=== PATIENT | female | born 1950 | race Caucasian/White ===

== ENCOUNTER 2020-02-23 11:09 | Outpatient (CLI) | payer MEDICARE, OTHER, SELFPAY ==
--- NOTE | 2020-02-23 11:15 | MM_ITS ---
WS: [id number] BILATERAL DIGITAL SCREENING MAMMOGRAPHY WITH CAD CLINICAL INFORMATION: SCREENING HISTORY: Screening mammogram. No current complaints. COMPARISON: TECHNIQUE: Bilateral CC and MLO views. FINDINGS: Scattered fibroglandular densities bilaterally. No suspicious focal mass, asymmetry, calcifications, or architectural distortion. No evidence of malignancy. A few stable clustered calcifications. MM/[place] [id number] IMPRESSION: BI-RADS: 2-Benign FOLLOW UP: 1 Year Follow-up Recommend return to annual screening mammography.
== END 2020-02-23 11:10 | disposition home or self-care (01) ==
PROVIDERS: PCP Nurse Practitioner Family; Visit Provider Nurse Practitioner Family
DX: Z12.31 Encounter for screening mammogram for malignant neoplasm of breast (principal)
CPT/HCPCS: 77067

== ENCOUNTER → 2021-07-31 14:51 | Outpatient (BNVA) | payer MEDICARE, OTHER, SELFPAY | PROVIDERS: PCP Nurse Practitioner Family; Visit Provider Internal Medicine Cardiovascular Disease | DX: I71.2 Thoracic aortic aneurysm, without rupture (principal); R07.2 Precordial pain; I10 Essential (primary) hypertension; K21.9 Gastro-esophageal reflux disease without esophagitis; G47.33 Obstructive sleep apnea (adult) (pediatric); Z87.891 Personal history of nicotine dependence | CPT/HCPCS: 99214 ==

== ENCOUNTER 2021-08-14 10:04 | Outpatient (CLI) | payer MEDICARE, OTHER, SELFPAY ==
--- NOTE | 2021-08-14 10:30 | CT_ITS ---
WS: [id number] CTA THORACIC TECHNIQUE: Contrast enhanced CTA of the thoracic aorta with coronal and sagittal reformatted images a nd maximum intensity projection (MIP) images. CLINICAL INFORMATION: Thoracic Aortic Aneurysm COMPARISON: 2017 DLP: 1088.[address] scans at [facility] use at least one of these dose optimization techniques: automated e xposure control; mA and/or kV adjustment per patient size (includes targeted exams where dose is matc hed to clinical indication); or iterative reconstruction. FINDINGS: Stable ascending thoracic aortic aneurysm measuring 4.1 cm is unchanged. Mild aortic calcification. P roximal main pulmonary arteries are normal. No mediastinal or hilar lymphadenopathy. No axillary lymp hadenopathy. Spiculated RIGHT upper lobe mass at the level of the RIGHT hilum new compared to prior e xamination. This measures approximately 1.5 x 1.1 cm suspicious for neoplasm. Recommend further evalu ation with PET/CT and/or bronchoscopy. Stable volume loss RIGHT lower lobe with elevation hemidiaphragm. Subsegmental atelectasis in the wero g bases. 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 No mediastin al or hilar lymphadenopathy. Moderate chronic centrilobular emphysematous changes. Diffuse fatty liver infiltration of the liver. Partially visualized LEFT renal cyst. Measuring 4.1 CM . Normal caliber upper abdominal aorta. Celiac is patent. Adrenal glands are normal. Gallbladder is p artially visualized. Normal portal vein and splenic vein. Small esophageal hiatal hernia. CT/CT angio chest [id number] IMPRESSION: 1. Stable ascending thoracic aortic aneurysm measuring 4.1 cm unchanged from p revious. 2. Spiculated mass in the RIGHT upper lobe posteriorly new from the prior exam inations highly suspicious for neoplasm measuring 1.2 x 1.5 CCM. Recommend furt her evaluation with PET/CT and/or bronchoscopy. 3. No mediastinal or hilar lymphadenopathy. 4. 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 5. Chronic elevation hemidiaphragm is unchanged with bibasilar subsegmental at electasis and fibrosis.
[2021-08-14 12:31] LABS: Blood Urea Nitrogen 15 mg/dL (8-23); Glomerular Filtration Rate 62.1 mL/min (90-130)
== END 2021-08-14 10:05 | disposition home or self-care (01) ==
LOC: RAD 10:05
PROVIDERS: PCP Nurse Practitioner Family; Visit Provider Internal Medicine Cardiovascular Disease
DX: I71.2 Thoracic aortic aneurysm, without rupture (principal)
CPT/HCPCS: 71275; 82565; 84520; Q9967

== ENCOUNTER → 2021-08-27 14:39 | Outpatient (BNVA) | payer MEDICARE, OTHER, SELFPAY | PROVIDERS: PCP Nurse Practitioner Family; Visit Provider Internal Medicine Critical Care Medicine | DX: R91.1 Solitary pulmonary nodule (principal); J44.9 Chronic obstructive pulmonary disease, unspecified; G47.33 Obstructive sleep apnea (adult) (pediatric); Z87.891 Personal history of nicotine dependence; K21.9 Gastro-esophageal reflux disease without esophagitis; I10 Essential (primary) hypertension | CPT/HCPCS: 99204 ==

== ENCOUNTER 2021-09-11 06:55 | Day surgery (SDC) | payer MEDICARE, OTHER, SELFPAY ==
[2021-08-31 12:18] VITALS: BMI 29.0
[2021-09-11] VITALS (8 sets, daily range): BP systolic 107–146; BP diastolic 71–83; PULSE 67–83; RESP 16–20; TEMP 36.5–36.6; O2SAT 96–100
--- NOTE | 2021-09-11 | CT_ITS ---
Guided Bronchoscopy Planning CT images; total exam DLP: 520.10 mGy-cm MTDD
[2021-09-11] MEDS: sodium chloride 0.9% 1,000 ML 30 ML IV (07:28)
--- NOTE | 2021-09-11 07:59 | W.PM.OPSUD ---
Surgery/Procedure H&P Update DATE OF PROCEDURE: September 11, 2021 DATE H&P PERFORMED: 08/27/21 CHANGES TO PREVIOUS DOCUMENTATION: None PREOP DIAGNOSIS: Lung nodule PRIMARY INDICATION FOR PROCEDURE: Suspected lung cancer PLANNED PROCEDURE: Bronchoscopy with inspection of the airway, possible endobronchial biopsy, bronchoalveolar lavage, navigational bronchoscopy guided fine-needle aspiration, transbronchial biopsies, Cytobrush, endobronchial sound guided transbronchial needle aspiration of lymph nodes and control of bleeding. Operation Date: 09/11/21 08:25 Proposed Procedures p [Navigational bronch, EBUS, 96848, 29696, 47890, 81401(Not Applicable) - Serigo Bloom MD s Ebus(Not Applicable) - Sergio Bloom MD
--- NOTE | 2021-09-11 08:02 | ANES.PREANE2 ---
Pre-Anesthetic Assessment Height/Weight: Height 1.68 m Weight 81.647 kg Temp Pulse Resp BP Pulse Ox 97.7 F 67 18 146/82 96 09/11/21 07:14 09/11/21 07:14 09/11/21 07:14 09/11/21 07:14 09/11/21 07:14 Preop Diagnosis: Lung nodule Operation Date: 09/11/21 08:25 Proposed Procedures p [Navigational bronch, EBUS, 89333, 74564, 90412, 96483(Not Applicable) - Sergio Bloom MD s Ebus(Not Applicable) - Sergio Bloom MD Familial anesthetic complications: None Was Beta Lashawn taken within 24 hours: N/A Was Clonidine taken within 24 hours: N/A Last intake: Intake Last Liquid Date 09/10/21 Last Liquid Time 20:30 Last Solid Date 09/10/21 Last Solid Time 20:30 Social No alcohol and No tobacco 40 pack year smoking history Exam alert, oriented x 3, clear to auscultation bilaterally and regular rate & rhythm Airway Mallampati: Class I Dentition: full Pulmonary Chronic Obstructive Pulmonary Disease and Sleep Apnea CV/HEM Hypertension thoracic ascending aortic aneurysm - 4.2 cm None reported Hepatic None reported GI None reported Metabolic None reported Musc/skel None reported Neuropsych None reported Anesthetic Plan ASA status: 3 Anesthesia: General Risk of > 500 ml blood loss (7ml/kg in children): No Medications/Allergies Home Medications Medication Instructions Recorded Confirmed Last Taken Type dicyclomine 10 mg capsule 10 mg PO QID PRN 12/29/19 09/11/21 09/11/21 History diphenoxylate-atropine 2.5 1 tab PO BID PRN tab 12/29/19 09/11/21 09/11/21 History mg-0.025 mg tablet ibuprofen 400 mg tablet 400 mg PO Q8H PRN 12/29/19 09/11/21 Unknown History metoprolol succinate 50 mg 50 mg PO DAILY 12/29/19 09/11/21 09/10/21 History tablet,extended release 24 hr (Toprol XL) nitroglycerin 0.4 mg sublingual 0.4 mg SUBLINGUAL Q5M PRN #25 tab 12/29/19 09/11/21 Unknown Rx tablet (Nitrostat) lisinopril 2.5 mg tablet 15 mg PO BID tab 07/31/21 09/11/21 09/10/21 History pantoprazole 40 mg tablet,delayed 40 mg PO BID PRN tab 07/31/21 09/11/21 Unknown History release umeclidinium 62.5 mcg-vilanterol 1 inh INHALATION DAILY 60 Days #60 08/27/21 09/11/21 09/10/21 Rx 25 mcg/actuation powdr for ea inhalation (Anoro Ellipta) Allergies Allergy/AdvReac Type Severity Reaction Status Date / Time nitrofurantoin Allergy Unknown Unknown Verified 09/11/21 07:11 [From Macrobid] Penicillins Allergy Unknown Unknown Verified 09/11/21 07:11 Sulfa (Sulfonamide Allergy Unknown Unknown Verified 09/11/21 07:11 Antibiotics) Current Medications Generic Name Dose Route Start Last Admin Trade Name Freq PRN Reason Stop Dose Admin Sodium Chloride 1,000 mls @ 30 mls/hr 09/11/21 07:15 09/11/21 07:28 Sodium Chloride 0.9% IV 09/12/21 07:14 30 mls/hr .Q24H EMILEE Administration PFSH Anesthesia Medical History GERD (gastroesophageal reflux disease) HTN (hypertension) LINDA (obstructive sleep apnea) Thoracic aortic aneurysm Surgical History S/P shoulder surgery Left S/P subtotal thyroidectomy (~1984) Left Family History Mother Cancer Ovarian CA Hypertension Father Cancer Colon CA Brother Myocardial infarction CAD (coronary artery disease) Social History Smoking and tobacco status: former smoker Quit status (tobacco): has quit using tobacco Year quit tobacco: 2015 Former quit date comment: 1ppd X 46 years, started at age 19 Data Anesthesia Cardiac Studies: No Data to Display
[2021-09-11] MEDS: lidocaine 1% INJ 20 mL XX (08:31)
--- NOTE | 2021-09-11 09:21 | PM.OP ---
Operative Report Date of procedure: September 11, 2021 Pre-op diagnosis: Preop Diagnosis Lung nodule Brief History: This is a 71-year-old lady with PET positive right upper lobe lung nodule coming in for bronchoscopic evaluation. Procedure: Name of the procedure: Bronchoscopy with inspection of the airway, bronchoalveolar lavage, navigational bronchoscopy guided fine-needle aspiration of right upper lobe lung nodule, endobronchial ultrasound-guided transbronchial needle aspiration of lymph nodes and control of bleeding. Indication: PET positive right upper lobe lung nodule Anesthesia: General anesthesia. Local anesthesia: The shanon in the right and left mainstem bronchi were anesthetized with 1% lidocaine, 3 mL. Description of the procedure: The procedure was explained to the patient and the consent was obtained. The patient was brought to the OR. The patient underwent endotracheal intubation for general anesthesia. Following induction of general anesthesia, the bronchoscope was advanced through the ET tube. The lower trachea appeared to be normal, no endotracheal lesion was seen. The shanon was sharp. The shanon, the right and left mainstem bronchi are anesthetized with 1% lidocaine. In a systematic manner bilateral bronchial tree was then examined. The bronchoscope was advanced into the left mainstem bronchus. The left upper lobe, lingula and left lower lobe bronchi were examined up to the third subsegmental level and no abnormalities were identified. The bronchoscope was then introduced into the right mainstem bronchus. The right upper lobe, right middle lobe and right lower lobe bronchi were examined up to the third subsegmental level and no abnormalities were identified. There was mucus throughout the airways. Using navigational bronchoscopy, fine-needle aspiration was performed from the right upper lobe lung nodule. Multiple samples were obtained. Bronchoalveolar lavage was performed from the right upper lobe. The endobronchial ultrasound was introduced through the ET tube. No significant mediastinal or hilar lymphadenopathy was identified. The largest lymph node measured less than 5 mm with distinct cortex and midline. No samples were obtained. Samples: 1. Bronchoalveolar lavage specimen was sent for cytology. 2. The fine-needle aspiration of right upper lobe nodule was sent for cytology and histopathology. Complications: There was no immediate complications. Chest x-ray: Pending
--- NOTE | 2021-09-11 09:26 | XR_ITS ---
WS: [id number] PORTABLE CHEST HISTORY: POST VERAN COMPARISON: 02/17/2015 No pneumothorax. The previously described RIGHT upper lobe nodule is not as readily apparent by radio graph. Mild elevation RIGHT hemidiaphragm. No pleural effusion or pneumothorax. Cardiac size: Normal. Mediastinum/Aorta: Mild atherosclerosis aorta. Prior healed rib fracture posterior LEFT sixth rib. XR/XR chest 1V portable [id number] IMPRESSION: No pneumothorax status post negative additional bronchoscopy.
--- NOTE | 2021-09-11 13:44 | ANE.PACU2 ---
Inpatient post-anesthesia follow up: Airway intact: Yes Vital signs: Temperature 97.8 F Pulse Rate 74 Respiratory Rate 16 Blood Pressure 130/71 Pulse Oximetry 100 Oxygen Delivery Me thod Room Air Oxygen Flow Rate Fraction of Inspir ed Oxygen Hydration adequate: Yes Nausea and vomiting: No Pain level: 1 Mental status: Baseline
== END 2021-09-11 10:20 | disposition home or self-care (01) ==
PROVIDERS: PCP Nurse Practitioner Family; Visit Provider Internal Medicine Critical Care Medicine
PROC: BB4BZZZ Ultrasonography of Pleura (ICD-10-PCS; 2021-09-11 08:15)
PROC: 0BJ08ZZ Inspection of Tracheobronchial Tree, Via Natural or Artificial Opening Endoscopic (ICD-10-PCS; CPT 31622; 2021-09-11 08:15)
DX: R91.8 Other nonspecific abnormal finding of lung field (principal); J44.9 Chronic obstructive pulmonary disease, unspecified; G47.30 Sleep apnea, unspecified; I10 Essential (primary) hypertension; K21.9 Gastro-esophageal reflux disease without esophagitis; G47.33 Obstructive sleep apnea (adult) (pediatric); Z87.891 Personal history of nicotine dependence
CPT/HCPCS: 31624; 31627; 31629; 71045; 71250; 77011; 80503; 88108; 88305; J1100; J2405; J2704; J3010; J3490; J7030

== ENCOUNTER → 2021-10-04 14:49 | Outpatient (BNVA) | payer MEDICARE, OTHER, SELFPAY | PROVIDERS: PCP Nurse Practitioner Family; Visit Provider Thoracic Surgery (Cardiothoracic Vascular Surgery) | DX: R91.1 Solitary pulmonary nodule (principal); Z87.891 Personal history of nicotine dependence | CPT/HCPCS: 99203 ==

== ENCOUNTER 2021-10-17 13:35 | Outpatient (CLI) | payer MEDICARE, OTHER, SELFPAY ==
--- NOTE | 2021-10-17 13:54 | PFTS_ITS ---
Date of Study:10/17/21 Date of Dictation: 10/20/21 MECHANICS: Postbronchodilator forced vital capacity (FVC) is normal. Postbronchodilator forced expiratory volume in one second (FEV1) is moderately reduced. FEV1/FVC is reduced. There is no significant response to bronchodilator FLOW VOLUME LOOP: mild scooping of end expiratory limb suggestive of small airflow obstruction. LUNG VOLUMES: Total lung capacity (TLC) is normal. Residual volume (RV) is normal. DIFFUSING CAPACITY FOR CARBON MONOXIDE: normal. INTERPRETATION: The Spirometry showed moderate airflow obstruction. There is no significant response to bronchodilators. Lung volumes and gas transfer are normal. Clinical correlation recommended. MTDD
== END 2021-10-17 13:36 | disposition home or self-care (01) ==
PROVIDERS: PCP Nurse Practitioner Family; Visit Provider Internal Medicine Critical Care Medicine
DX: R91.1 Solitary pulmonary nodule (principal)
CPT/HCPCS: 94060; 94726; 94729; J7614

== ENCOUNTER 2021-11-06 11:21 | Inpatient (IN) | payer MEDICARE, OTHER, SELFPAY ==
[2021-11-01 09:17] VITALS: BMI 29.0
[2021-11-01 09:25] LABS: Add Urine Microscopic? NO; Charge for UA Resulting for Rev
[2021-11-01 09:30] LABS: Bilirubin Urine Neg (Negative); Blood Urine Neg (Negative); Glucose Urine UA Norm (Normal); Ketones Urine Negative (Negative); Leukocyte Esterase Urine Negative (Negative); Nitrate Urine Negative (Negative); Protein Urine Neg (Negative); Urine Appearance Clear (CLEAR); Urine Color Yellow (Yellow); Urobilinogen Urine Norm (Negative); pH Urine 6 (5-7)
[2021-11-01 09:55] LABS: Basophils # 0.1 10^3/uL (0.0-0.1); Basophils % 0.9 %; Eosinophils # 0.1 10^3/uL (0.0-0.8); Eosinophils % 2.1 %; Hematocrit 43.8 % (37.0-47.0); Hemoglobin 14.1 g/dL (11.5-15.3); Lymphocytes # 2.2 10^3/uL (0.8-4.8); Lymphocytes % 32.9 %; Mean Corpuscular HGB Conc 32.2 g/dL (30.0-36.0); Mean Corpuscular Hemoglobin 28.8 pg (28.0-34.0); Mean Corpuscular Volume 89.4 fl (81-99); Mean Platelet Volume 10.4 fL (7.4-10.4); Monocytes # 0.4 10^3/uL (0.2-0.9); Monocytes % 6.3 %; Neutrophils # 3.82 10^3/uL (1.8-7.7); Neutrophils % 57.5 %; Nucleated Red Blood Cells % 0 %; Platelet Count 275 10^3/cmm (130-400); Red Cell Distribution Width 13.6 % (12.1-15.1); White Blood Count 6.7 10^3/uL (4.0-10.0)
[2021-11-01 10:12] LABS: INR 1.01 (0.8-1.2)
[2021-11-01 10:20] LABS: Anion Gap 14.1 (5-19); Blood Urea Nitrogen 20 mg/dL (8-23); Calcium 8.9 mg/dL (8.5-10.5); Carbon Dioxide 26 mmol/L (22-29); Chloride 106 mmol/L (98-107); Glucose 98 mg/dL (65-115); Osmolality Calculated 295 mOsm/kg (285-295); Potassium 5.1 mmol/L (3.5-5.1); Sodium 141 mmol/L (136-145)
--- NOTE | 2021-11-01 12:51 | ANES.PREANE2 ---
Pre-Anesthetic Assessment Height/Weight: Height 1.68 m Weight 81.647 kg Preop Diagnosis: Lung nodule Operation Date: 11/06/21 07:00 Proposed Procedures p Lobectomy/lung mass(Right) - Laz Mendoza MD Familial anesthetic complications: none Was Beta Lashawn taken within 24 hours: Yes Was Clonidine taken within 24 hours: N/A Social No alcohol and No tobacco (h/o smoking) Exam alert, oriented x 3 and regular rate & rhythm Airway Submandibular: within normal limits Cervical ROM: within normal limits Mallampati: Class II Dentition: chipped Pulmonary Chronic Obstructive Pulmonary Disease and Sleep Apnea CV/HEM Hypertension and Peripheral Vascular Disease (Ascending Ao Aneurysm) GI Gastroesophageal Reflux Disease Anesthetic Plan ASA status: 3 Anesthesia: General and Regional (specify below) (Thoracic epidural for postop pain) Other: Discussed a.line and blood transfusion Medications/Allergies Home Medications Medication Instructions Recorded Confirmed Last Taken Type dicyclomine 10 mg capsule 10 mg PO QID PRN 12/29/19 11/01/21 09/11/21 History diphenoxylate-atropine 2.5 1 tab PO BID PRN tab 12/29/19 11/01/21 09/11/21 History mg-0.025 mg tablet ibuprofen 400 mg tablet 400 mg PO Q8H PRN 12/29/19 11/01/21 Unknown History metoprolol succinate 50 mg 50 mg PO DAILY 12/29/19 11/01/21 09/10/21 History tablet,extended release 24 hr (Toprol XL) nitroglycerin 0.4 mg sublingual 0.4 mg SUBLINGUAL Q5M PRN #25 tab 12/29/19 11/01/21 Unknown Rx tablet (Nitrostat) lisinopril 2.5 mg tablet 15 mg PO BID tab 07/31/21 11/01/21 09/10/21 History pantoprazole 40 mg tablet,delayed 40 mg PO BID PRN tab 07/31/21 11/01/21 Unknown History release umeclidinium 62.5 mcg-vilanterol 1 inh INHALATION DAILY 60 Days #60 08/27/21 11/01/21 09/10/21 Rx 25 mcg/actuation powdr for ea inhalation (Anoro Ellipta) Allergies Allergy/AdvReac Type Severity Reaction Status Date / Time nitrofurantoin Allergy Unknown Unknown Verified 10/04/21 16:11 [From Macrobid] Penicillins Allergy Unknown Unknown Verified 10/04/21 16:11 Sulfa (Sulfonamide Allergy Unknown Unknown Verified 10/04/21 16:11 Antibiotics) [facility] Anesthesia Medical History GERD (gastroesophageal reflux disease) HTN (hypertension) LINDA (obstructive sleep apnea) Thoracic aortic aneurysm Surgical History S/P shoulder surgery Left S/P subtotal thyroidectomy (~1984) Left Family History Mother Cancer Ovarian CA Hypertension Father Cancer Colon CA Brother Myocardial infarction CAD (coronary artery disease) Social History Smoking and tobacco status: former smoker Quit status (tobacco): has quit using tobacco Year quit tobacco: 2015 Former quit date comment: 1ppd X 46 years, started at age 19 Data Anesthesia : 11/01/21 09:40 11/01/21 09:40 Short CBC 11/01/21 Range/Units 09:40 WBC 6.7 (4.0-10.0) 10^3/uL Hgb 14.1 (11.5-15.3) g/dL Hct 43.8 (37.0-47.0) % MCV 89.4 (81-99) fl Plt Count 275 (130-400) 10^3/cmm Neut % (Auto) 57.5 % Neut # (Auto) 3.82 (1.8-7.7) 10^3/uL BMP 11/01/21 09:40 Sodium 141 Potassium 5.1 Chloride 106 Carbon Dioxide 26 BUN 20 Creatinine 1.0 H Glucose 98 Calcium 8.9 Urine 11/01/21 Range/Units 09:09 Urine Color Yellow (Yellow) Urine Appearance Clear (CLEAR) Urine pH 6 (5-7) Ur Specific Bloomer 1.010 (1.005-1.030) Urine Protein Neg (Negative) Urine Glucose (UA) Norm (Normal) Urine Ketones Negative (Negative) Urine Nitrate Negative (Negative) Urine Bilirubin Neg (Negative) Ur Leukocyte Esterase Negative (Negative) Blood Bank 11/01/21 09:41 Blood Type O Positive Rho(D) Type Positive Antibody Screen Negative Coa 11/01/21 09:40 PT 13.60 INR 1.01 Cardiac Studies: No Data to Display
[2021-11-06] VITALS (17 sets, daily range): BP systolic 89–147; BP diastolic 55–82; PULSE 53–86; RESP 14–24; TEMP 36.7–37.2; O2SAT 92–99
--- NOTE | 2021-11-06 06:10 | ECG_ITS ---
[facility] Test Date: 2021-11-06 Pat Name: Elizabeth Hernandez Department: Room: Gender: Female [employer]: : 1950 Requested By: Laz Mendoza Order Number: [id number] Wang MD: Diego Turner M.D. Measurements Intervals K[place]aid Rate: 61 P: 34 SC: 162 QRS: -10 QRSD: 80 T: 20 QT: 398 QTc: 402 Interpretive Statements SINUS RHYTHM No previous ECG available for comparison Electronically Signed On 11-06-2021 21:02:09 CDT by Diego Turner M.D. [id number]
--- NOTE | 2021-11-06 06:18 | P.HP_ITS ---
Providers/Chief Complaint Admitting Physician: Dr. Mendoza Chief Complaint: lung mass History of Present Illness Elizabeth Hernandez is a 71 year old female whom I saw originally in consultation on October [address] Bloom from pulmonary medicine for surgical opinion and surgical consideration in relation to a 1.5 x 1.1 cm posterior segment right upper lobe lesion which was identified on CT scan of the chest on August 14 as part of continued surveillance for known 4.1 cm ascending aortic aneurysm. This was further evaluated by PET scan on September 05 which revealed increased activity in this lesion measuring SUV of 6.7. On September 11, she underwent navigational bronchoscopy by Dr. Bloom which was nondiagnostic and no overt malignancy id entified. She has a greater than 50-ofjh-vjtb history of tobacco use and a strong family history for several malignancies. Because of the concerns of the potential for malignancy of this lesion, she was referred to consider surgical extirpation. Since her evaluation with me on October 04 she underwent pulmonary function testing on October 17. This study revealed FEV1 of 1.82 which was 76% of predicted and FVC of 2.59 which was 84% of predicted. FEF 25/75 was 1.02 which was 51% of predicted. Her DLCO was 21.06 which was 78% of predicted. She had notable response to bronchodilator. She presents today for planned right thoracotomy and segmentectomy versus lobectomy for this lesion. She has been previously counseled concerning this and does wish to proceed. She has been seen by anesthesia and will be considered for thoracic epidural catheter placement. Review of Systems Const: Denies: fever(s), chills or change in weight ENMT: Denies: throat pain Card: Reports: dyspnea on exertion; Denies: chest pain or orthopnea Resp: Reports: dyspnea; Denies: productive cough or hemoptysis GI: Reports: heartburn; Denies: hematemesis Musc: Reports: back pain and joint pain Neuro: Denies: headache(s), numbness in extremities or weakness in extremities Endo: Denies: polyuria or polydipsia Bradford/Lymph: Reports: easy bruising Medications/Allergies Home Medications Medication Instructions Recorded Confirmed Last Taken Type dicyclomine 10 mg capsule 10 mg PO QID PRN 12/29/19 11/01/21 09/11/21 History diphenoxylate-atropine 2.5 1 tab PO BID PRN tab 12/29/19 11/01/21 09/11/21 History mg-0.025 mg tablet ibuprofen 400 mg tablet 400 mg PO Q8H PRN 12/29/19 11/01/21 Unknown History metoprolol succinate 50 mg 50 mg PO DAILY 12/29/19 11/01/21 09/10/21 History tablet,extended release 24 hr (Toprol XL) nitroglycerin 0.4 mg sublingual 0.4 mg SUBLINGUAL Q5M PRN #25 tab 12/29/19 11/01/21 Unknown Rx tablet (Nitrostat) lisinopril 2.5 mg tablet 15 mg PO BID tab 07/31/21 11/01/21 09/10/21 History pantoprazole 40 mg tablet,delayed 40 mg PO BID PRN tab 07/31/21 11/01/21 Unknow n History release umeclidinium 62.5 mcg-vilanterol 1 inh INHALATION DAILY 60 Days #60 08/27/21 11/01/21 09/10/21 Rx 25 mcg/actuation powdr for ea inhalation (Anoro Ellipta) Allergies Allergy/AdvReac Type Severity Reaction Status Date / Time nitrofurantoin Allergy Unknown Unknown Verified 10/04/21 16:11 [From Macrobid] Penicillins Allergy Unknown Unknown Verified 10/04/21 16:11 Sulfa (Sulfonamide Allergy Unknown Unknown Verified 10/04/21 16:11 Antibiotics) PFSH Acute PFSH: Medical History GERD (gastroesophageal reflux disease) HTN (hypertension) LINDA (obstructive sleep apnea) Thoracic aortic aneurysm Surgical History S/P shoulder surgery Left S/P subtotal thyroidectomy (~1984) Left Family History Mother Cancer Ovarian CA Hypertension Father Cancer Colon CA Brother Myocardial infarction CAD (coronary artery disease) Social History Smoking and tobacco status: former smoker Quit status (tobacco): has quit using tobacco Year quit tobacco: 2015 Former quit date comment: 1ppd X 46 years, started at age 19 Physical Exam HENMT: COMMON NORMALS: normocephalic, atraumatic, hearing grossly normal bilaterally and external ears normal Eye: COMMON NORMALS: Equal, round and reactive pupils present and EOMs intact bilaterally Neck/C-Spine: COMMON NORMALS: full ROM, no lymphadenopathy and No carotid bruits Chest: COMMONS NORMALS: normal inspection of the chest and normal palpation of entire chest wall Resp: COMMON NORMALS: normal respiratory effort, No use of accessory muscles and clear to auscultation bilaterally Cardio: COMMON NORMALS: regular rate, regular rhythm, S1 normal heart sound present and No murmurs present (Cardio) PERIPHERAL PULSES: radial pulses present positive bilateral 2+ GI: COMMON NORMALS: Normal to inspection, nondistended, normoactive bowel sounds present Extremity: COMMON NORMALS: no clubbing, cyanosis or edema Neuro: COMMON NORMALS: patient oriented x3, no focal motor deficits, no sensory deficits noted and gait normal Psych: COMMON NORMALS: mental status grossly normal, Normal thought process p resent, cooperative and normal affect Skin: COMMON NORMALS: no rashes or lesions noted Data : 11/01/21 09:40 11/01/21 09:40 A&P Assessment and plan (1) Lung nodule, solitary: Pleasant 71-year-old female with a 1.5 x 1.1 cm suspicious lesion in the posterior segment of the right upper lobe which has increased activity on PET scan. She has a long history of tobacco use of over 27-itiy-cdes history. This lesion was found incidentally during a CTA surveillance scan of her chest for known 4.1 cm ascending aortic aneurysm. She is asymptomatic. Navigational directed bronchoscopy was performed by Dr. Bloom but did not reveal malignant cells. By history and radiographically, this lesion is concerning and surgical extirpation has been recommended. Rationale for thoracotomy was carefully discussed with Ms. Hernandez. Details and risks of the procedure were carefully and frankly discussed. Risks reviewed include the possibility of , stroke, heart attack, major bleeding, injury to the heart, lungs, or major vascular structures, infection, pneumonia, pneumothorax, prolonged need for chest tube, inability to adequately resect the lesion, Organ failure, failure to benefit, prolonged hospital stay, pain after the procedure, need for further procedures, inability to complete the procedure, and possible need for long-term followup. All questions were answered. Appr opriate consents have been provided for review and signature. Status: Acute Attestations Medical Necessity Statement*: Right upper lobe lung mass Time Spent in Patient Care: Greater than 35 minutes Coding Level of Care Code Acute Court Bailiff Or Sheriff for [facility] Fwd Diagnoses Lung nodule, solitary R91.1
[2021-11-06] MEDS: vancomycin 1,500 MG/300 ML PIGGYBACK 200 MG IV (06:23)
[2021-11-06] MEDS: diphenhydrAMINE 50 mg/mL SDV 1mL 25 MG IVP (07:08)
--- NOTE | 2021-11-06 07:19 | SUR.OPER ---
11/06/21 0719 stopped vancomycin at 0718 due to pt stating itching at head with redness. Dr. Mendoza notified and stated to stop vancomycin and give Ancef 2gms.
[2021-11-06] MEDS: ceFAZolin 2,000 MG in sodium chloride 0.9% (plus) 50 ML 100 MG IV ×3 (07:24→22:42)
--- NOTE | 2021-11-06 07:56 | P.ANESUD_ITS ---
Pre-Anesthetic Update Pre-Anesthetic Assessment: Date of Surgery/Procedure: 11/06/21 Preop Agustina gnosis: Right lung mass Proposed Procedure: Operation Date: 11/06/21 07:00 Proposed Procedures p Lobectomy/lung mass(Right) - Laz Mendoza MD Any changes to Pre-Anesthetic Assessment?: No Last Intake: Intake Last Liquid Date 11/05/21 Last Liquid Time 19:00 Last Solid Date 11/05/21 Last Solid Time 19:00 Labs Last 48hrs: Blood Bank 11/01/21 09:41 Blood Type O Positive Rho(D) Type Positive Antibody Screen Negative Vitals: Temperature 98.1 F 11/06/21 06:34 Temperature Source Temporal Artery S can 11/06/21 06:34 Pulse Rate 74 11/06/21 06:34 Respiratory Rate 18 11/06/21 06:34 Blood Pressure 147/82 11/06/21 06:34 Blood Pressure So n 103 11/06/21 06:34 Pulse Oximetry 97 11/06/21 06:34 Oxygen Delivery Me thod 11/06/21 06:34 Exam: Pre-Anes Outpt Exam: alert, oriented x 3, clear to auscultation bilaterally and regular rate & rhythm Cardiac Studies: No Data to Display Anesthesia Procedures Epidural: Time Out Performed: Yes Consents Signed: Procedure Consent Consent: requested by attending/covering physician, from patient, risks and benefits reviewed and patient agrees to proceed Thoracic Level: T9-T10 Epidural position: sitting Epidural procedure: sterile prep of area, 1% lidocaine to numb the area, 18 g needle, neg for paresthesia, test dose given, no systemic response, sterile dressing applied and 0.2% Ropiavacaine @ mls/hr (6) Additional Comments: left paramedian approach, EWELINA at 6cm, cath at 11cm
[2021-11-06] MEDS: ceFAZolin 1,000 mg SDV 1000 MG IRRIGATION (10:14)
--- NOTE | 2021-11-06 10:39 | P.OP_ITS ---
Operative Report Date of procedure: November 06, 2021 Pre-op diagnosis: Preop Diagnosis Right lung mass Post-op diagnosis: Adenocarcinoma Procedure done: 1. Flexible diagnostic bronchoscopy #2. Right upper lobe posterior segmentectomy Specimens removed/disposition: Right upper lobe posterior segment Right main bronchus and right main pulmonary artery lymph nodes Pathology: Frozen section analysis of the pulmonary parenchymal specimen was consistent with adenocarcinoma with clear margins Lymph nodes have been submitted for permanent sectioning. Surgeon: Laz Mendoza Anesthesia: General and Epidural Estimated blood loss (mL): 100 Complications: None: Post procedure chest x-ray pending Condition: stable Disposition: ICU Brief History: Ms. Hernandez is a 71-year-old female referred to our service for a 1.5 x 1.1 cm posterior segment right upper lobe lesion found incidentally during CTA of the chest on August 14 as part of continued surveillance for a 4.1 cm ascending aortic aneurysm. Subsequent evaluations included navigational directed bronchoscopy which was nondiagnostic. PET scan revealed increased activity concerning for malignancy. She has a long history of tobacco use. She was referred for consideration for surgical resection. Details and risk of the procedure were carefully and frankly discussed. Appropriate consents have been reviewed and signed. Procedure: Appropriate timeout was completed: Ms. Hernandez was taken to the operating room theater where thoracic epidural catheter was placed by Dr. Tellez. She was then carefully placed in the supine position where she underwent general endotracheal anesthesia with a single-lumen tube. Procedure #1 Flexible diagnostic bronchoscopy. Procedure: With adequate anesthesia, flexible bronchoscope was inserted through the endotracheal tube. In a methodical fashion the trachea, shanon, right main bronchus and associated lobar bronchi were inspected. In a similar fashion the left side was inspected. Secretions were cleared as needed to allow for adequate inspection. Secretions were light. Findings: Main shanon and secondary shanon were sharp. Branching anatomy was normal. Mucosa was unremarkable and nonfriable. There was no evidence for extrinsic compression. There was no evidence for submucosal infiltration. No endobronchial lesions were seen. There was no effacement of bronchial orifices. Once completed, the scope was withdrawn under direct visualization confirming cleared secretions and no substantial bleeding. Single lumen endobronchial tube was replaced with a double-lumen tube utilizing a glide scope. Correct positioning was confirmed by bronchoscopy. Ms. Hernandez was then carefully placed in the left lateral decubitus position over axillary rolls and protective padding. Procedure #2 Right upper lobe posterior segmentectomy. Entire right chest wall was sterilely prepped and draped. A muscle-sparing r ight posterior lateral thoracotomy incision was then created and carried down through the subtendinous tissues down to the fascia. Latissimus dorsi was divided with sparing of the serratus anterior musculature. Right lung was then removed from ventilation. Vital signs and O2 saturation remained stable. Both intercostal space was then carefully entered with cautery anteriorly to posteriorly. A tuffier retractor was placed followed by placement of a Finochietto retractor. Chest wall was carefully . Initial visual inspection revealed moderate anthracosis the pulmonary parenchyma but no substantial adenopathy or evidence for pleural seeding. Upon palpation, adhesions were taken down posteriorly and apically which allowed for complete inspection of the right upper lobe. There was a palpable lesion located posteriorly and rather central which would be consistent with the suspected lesion noted on CTA and subsequent PET scan. Lymph nodes were collected from the right main bronchus and right main pulmonary artery. Visually, these appear to be unremarkable. These were sent to pathology for permanent sectioning. Methodical inspection throughout the remaining portion of the chest did not reveal any other evidence for pathology. Separately, along anatomic lines utilizing a endoscopic stapler with seam guard, the right upper lobe was transected for isolation of the posterior segment. There was simply transected proximally and by palpation appeared to completely incorporate the concerning lesion. This was then sent to pathology for frozen section analysis of the lesion as well as margins. Dr. Cortez reported back by phone the lesion was consistent with adenocarcinoma with clear margins. Given the size of the lesion and the intraoperative findings along with the long history of tobacco use and pulmonary function studies, I elected not to perform lobectomy. ProGuard sealant was placed along the staple line. 28 Turkmen chest tube was placed anteriorly and across the upper lobe around the apex. This was connected to Pleur-evac suction. Right lung was reinflated under visualization and then covered with saline with no evidence for air leak after a full in flation with positive pressure. This point, the entire wound was Irrigated with saline. Retractors were removed. Sponge needle count was correct. Chest wall is reapproximated with #2 Vicryl suture. Fascia was closed with running 0 Vicryl suture. Subcutaneous layer was closed with 2-0 Vicryl suture. Skin was reapproximated in a subcuticular manner with 3-0 Monocryl suture. Ms. Hernandez was then returned to the supine position where she was awakened and extubated on the operating room table. Vital signs remained stable. She was separately transferred to the ICU in stable condition. I did admissions counselor with her family at the completion of the procedure.
--- NOTE | 2021-11-06 11:15 | XRR_ITS ---
PROCEDURE INFORMATION: Exam: XR Chest Exam date and time: 11/06/2021 11:36 AM Age: 71 years old Clinical indication: Device placement; Prior surgery; Surgery date: Post-operative (0-2 days); Patient HX: Post operation, right upper lobe segmentectomy; Additional info: S/P right upper lobe segmentectomy TECHNIQUE: Imaging protocol: Radiologic exam of the chest. Views: 1 view. COMPARISON: CR XR chest 1V portable [id number] 09/11/2021 9:41 AM FINDINGS: Lungs: Low lung volumes seen.. No consolidation. Pleural spaces: Unremarkable. No pleural effusion. No pneumothorax. Heart/Mediastinum: Unremarkable. No cardiomegaly. Bones/joints: Unremarkable. Right side chest tube extends to the right lung apex. XR/XR chest 1V portable [id number] IMPRESSION: No acute findings. Chest tube extends to the right lung apex
[2021-11-06] MEDS: lactated ringers 1,000 ML 100 ML IV ×2 (11:57→22:41)
--- NOTE | 2021-11-06 16:18 | ANE.PACU2 ---
Inpatient post-anesthesia follow up: Airway intact: Yes Vital signs: Temperature 98.1 F Pulse Rate 74 Respiratory Rate 18 Blood Pressure 147/82 Pulse Oximetry 97 Oxygen Delivery Me thod Room Air Oxygen Flow Rate Fraction of Inspir ed Oxygen Hydration adequate: Yes Nausea and vomiting: No Pain level: 2 Mental status: Baseline
--- NOTE | 2021-11-06 18:37 | PC.NURSE ---
Pt returned from surgery around 1100 on 4L NC. Chest tube in place and hooked up to suction in room and no air leak noted. Dressing is dry and intact around both sites. Pt was educated on CLINICAL DOCUMENTATION MANAGER pump and has been seen using it for demand doses. ART line was removed by He. Dressing dry and intact.
[2021-11-06] MEDS: ipratropium-albuterol 3 mL Neb INHALATION (20:05)
--- NOTE | 2021-11-06 20:51 | PC.NURSE ---
during assessment this RN found pt to have right pupil larger than left pupil. pupils are brisk and reactive to light. 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 Kris called to report findings. no new orders at this time
[2021-11-07] VITALS (33 sets, daily range): BP systolic 89–172; BP diastolic 54–105; PULSE 63–89; RESP 15–34; TEMP 36.9–37.1; O2SAT 91–95
--- NOTE | 2021-11-07 06:00 | XRR_ITS ---
PROCEDURE INFORMATION: Exam: XR Chest Exam date and time: 11/07/2021 5:25 AM Age: 71 years old Clinical indication: Device placement; Other: S/P segmentectomy; Prior surgery; Surgery date: Post-operative (0-2 days); Additional info: Pod#1 S/P segmentectomy TECHNIQUE: Imaging protocol: Radiologic exam of the chest. Views: 1 view. COMPARISON: CR XR chest 1V portable [id number] 11/06/2021 11:36 AM FINDINGS: Tubes, catheters and devices: A right chest tube remains in similar position. Lungs: Volume loss of the right lung. Opacities of lower lungs favoring atelectasis. Pleural spaces: Pleural thickening or small bilateral pleural effusions. Heart/Mediastinum: Unremarkable. No cardiomegaly. Vasculature: Tortuous thoracic aorta. Diaphragm: The right hemidiaphragm is elevated. Bones/joints: Unremarkable. Soft tissues: Small amount of soft tissue emphysema right chest wall. XR/XR chest 1V portable [id number] IMPRESSION: 1. Diminutive inspiratory volume with atelectasis lower lungs. 2. Suspect minimal pleural effusions bilaterally.
--- NOTE | 2021-11-07 06:17 | P.PN_ITS ---
Subjective Subjective: Postop day #1 status post right upper lobe segmentectomy. Uneventful night utilizing CPAP, which she utilizes at home. O2 saturation approximately 90% on CPAP/room air. Would recommend nasal cannula to keep O2 saturations above 95%. Postop discomfort under good control with epidural catheter. No airleak on chest tube. Chest tube output approximately 40 cc overnight/just under 300 cc since surgery. Chest x-ray shows some mild volume loss consistent with atelectasis on the right side. Vitals/I&O/Wt Last Vital Signs Temp 98.7 F 11/07/21 05:00 Pulse 72 11/07/21 05:00 Resp 23 H 11/07/21 05:00 BP 113/59 11/07/21 05:00 Pulse Ox 93 11/07/21 05:00 11/06/21 11/06/21 11/07/21 14:59 22:59 06:59 Intake Total 70 / 70 1122.667 / 1192.667 50 / 1242.667 Output Total 702 / 702 460 / 1162 Balance 70 / 70 420.667 / 490.667 -410 / 80.667 Physical Exam Chest: COMMONS NORMALS: normal inspection of the chest OTHER: Surgical dressing clean and dry. Chest tube in good position. Resp: OTHER: Decreased breath sounds in the bases. Cardio: COMMON NORMALS: regular rate, regular rhythm, S1 normal heart sound present and No murmurs present (Cardio) RATE: regular rate RHYTHM: regular rhythm HEART SOUNDS: S1 normal heart sound present Extremity: COMMON NORMALS: no clubbing, cyanosis or edema Urinary Catheter Management: Adkins Latex: Cath Placed During This Visit: yes Reason for Continuing Indwelling Catheter: Accurate Measurement of Urinary Output in Critically Ill Patients Urinary Catheter Date of Insertion: 11/06/21 Urinary Catheter Time of Insertion: 08:15 Data : 11/01/21 09:40 11/01/21 09:40 A&P Assessment and plan (1) Adenocarcinoma of right lung: Postop day 1 status post right upper lobe posterior segmentectomy/adenocarcinoma of lung with clear margins Plan: Up in chair with meals. Ambulate with assistance with chest tube to waterseal. Encourage use of incentive spirometry. Chest x-ray in a.m. Will consider transfer to [facility] this afternoon after reevaluation. Status: Acute Attestations Medical Necessity Statement*: Postop day #1 status post right upper lobe posterior segmentectomy for adenocarcinoma Coding Level of Care Code Acute Vice President Of Operations for [facility] Diagnoses Adenocarcinoma of right lung C34.91
--- NOTE | 2021-11-07 07:06 | P.ANESPOST_ITS ---
Inpatient post-anesthesia follow up: Airway intact: Yes Vital signs: Temperature 98.7 F Pulse Rate 72 Respiratory Rate 23 Blood Pressure 113/59 Pulse Oximetry 93 Oxygen Delivery Me thod CPAP Oxygen Flow Rate 2 Fraction of Inspir ed Oxygen Hydration adequate: Yes Nausea and vomiting: No Pain level: 2 Mental status: Baseline Additional Comments: POD#1 good pain control with minimal FIELD SALES ENGINEER usage, C/D/I.
[2021-11-07] MEDS: ipratropium-albuterol 3 mL Neb INHALATION ×4 (07:54→19:59)
[2021-11-07 08:20] LABS: Basophils % 0.2 %; Eosinophils % 0.2 %; Hematocrit 37.8 % (37.0-47.0); Hemoglobin 11.7 g/dL (11.5-15.3); Lymphocytes # 1.4 10^3/uL (0.8-4.8); Lymphocytes % 12.3 %; Mean Corpuscular Hemoglobin 29.4 pg (28.0-34.0); Mean Platelet Volume 10.3 fL (7.4-10.4); Monocytes # 0.9 10^3/uL (0.2-0.9); Neutrophils # 8.85 10^3/uL (1.8-7.7); Neutrophils % 78.8 %; Nucleated Red Blood Cells % 0 %; Platelet Count 189 10^3/cmm (130-400); Red Blood Count 3.98 10^6/uL (4.1-5.3); Red Cell Distribution Width 14.1 % (12.1-15.1); White Blood Count 11.2 10^3/uL (4.0-10.0)
[2021-11-07] MEDS: lactated ringers 1,000 ML 100 ML IV (08:30)
[2021-11-07] MEDS: ceFAZolin 2,000 MG in sodium chloride 0.9% (plus) 50 ML 100 MG IV (08:30)
[2021-11-07 08:52] LABS: Anion Gap 14.1 (5-19); Blood Urea Nitrogen 17 mg/dL (8-23); Calcium 8.3 mg/dL (8.5-10.5); Carbon Dioxide 23 mmol/L (22-29); Chloride 104 mmol/L (98-107); Creatinine Clr Calc Pharmacy 71.4967; Glomerular Filtration Rate 71.1 mL/min (90-130); Glucose 112 mg/dL (65-115); Osmolality Calculated 286 mOsm/kg (285-295); Potassium 4.1 mmol/L (3.5-5.1); Sodium 137 mmol/L (136-145)
[2021-11-07] MEDS: pantoprazole DR 40 mg Tablet PO (08:58)
[2021-11-07] MEDS: metoprolol succinate ER (24 HR) 50 mg Tablet PO (08:58)
--- NOTE | 2021-11-07 10:40 | PC.CHAP ---
Pastoral Care Encounter/Spiritual Assessment Type of Contact [] Declined system auditor visit [] Patient/Family/Request visit [] Outpatient visit [] Follow-up visit [] Physician referral [] Code/Alert [x] Routine visit [] Staff referral [] Actively dying [x] Patient sleeping [] Family support [] [] Out of room [] Palliative care [] [] Receiving care in room [] Pre-surgical visit [] Trauma [] Long length of stay [x] ICU visit [x] Other: setting in chair Relational/Emotional Strength [] Patient feels connected with others/family/visitors/staff [] Distress [] Loneliness/isolation [] Abandonment Spirituality of Patient [] Person of Norma [] Attends Advent of their Norma [] Believes in Prayer [] Reads Bible or Hindu materials [] There are Spiritual issues to be addressed Bill Adjuster Interventions [x] Prayer [] Active listening [] Non-anxious presence [] Spiritual/emotional support [] Crisis/trauma care [] Spiritual counseling [] Bereavement support [] Provided bereavement packet [] Provided Bible/devotional materials [] Provided toy/stuffed animal, coloring book to patient or family member [] Provided Communion [] Anointing/[place] [] Salvation [x] Completed spiritual assessment [] Other: Impact on Illness or Injury [] Angry [] Fearful [] Anxious [] Often cries [] Exhaustion [] Unable to work [] Unable to attend gnosticism [] Unable to walk/stand [] Unable to read [] Unable to drive [] Unable to eat/drink [] Unable to sleep [] Unable to be with family [] Patient intubated [] Other: Summary Time spent with patient
[2021-11-07] MEDS: ketorolac 30 mg/mL INJ IVP (17:06)
--- NOTE | 2021-11-07 17:15 | PC.NURSE ---
[address] Mendoza. Discussed plan to ambulate this evening. Expressed concern over the weakness in her legs as a possible side effect of her epidural. Orders to call anesthesia. [address] Damon. Orders to pause epidural for two hours and reassess leg strength. 1700 Epidural paused. Toradol given per order. Will reassess in two hours.
[2021-11-07] MEDS: lisinopril 10 mg Tablet 15 MG PO (18:45)
[2021-11-07] MEDS: oxyCODONE-APAP 5-325 mg Tablet PO (19:21)
[2021-11-08] VITALS (35 sets, daily range): BP systolic 97–175; BP diastolic 53–122; PULSE 60–86; RESP 16–33; TEMP 36.9–37.3; O2SAT 90–96
[2021-11-08] MEDS: oxyCODONE-APAP 5-325 mg Tablet PO ×4 (00:17→18:47)
[2021-11-08] MEDS: lactated ringers 1,000 ML 100 ML IV (05:25)
--- NOTE | 2021-11-08 06:00 | XRR_ITS ---
PROCEDURE INFORMATION: Exam: XR Chest Exam date and time: 11/08/2021 4:23 AM Age: 71 years old Clinical indication: Device placement; Other: Status post right upper lobe segmentectomy; Prior surgery; Surgery date: Post-operative (0-2 days); Additional info: Postop day #2 status post right upper lobe segmentectomy TECHNIQUE: Imaging protocol: Radiologic exam of the chest. Views: 1 view. COMPARISON: CR XR chest 1V portable [id number] 11/07/2021 5:25 AM FINDINGS: Tubes, catheters and devices: Right chest tube is in similar position. Epidural pain catheter is in place. Lungs: Minimal bibasilar atelectasis. Postsurgical changes involving the right lung. Pleural spaces: Probable small right pleural effusion. No discernible pneumothorax. Heart/Mediastinum: Unremarkable. No cardiomegaly. Bones/joints: Unremarkable. XR/XR chest 1V portable [id number] IMPRESSION: Postoperative changes with minimal bibasilar atelectasis and small right pleural effusion. No discernible pneumothorax.
--- NOTE | 2021-11-08 06:01 | P.PN_ITS ---
Subjective Subjective: Postop day #2 status post right upper lobe posterior segmentectomy. Sleeping on rounds this morning with CPAP in position. Nurses report no concerns. Chest x-ray revealed no infiltrates or substantial effusion but generalized decreased lung volumes consistent with poor inspiratory effort. She will need aggressive pulmonary toilet today. Intake and output is up over 1 L past 24 hours. Vitals/I&O/Wt Last Vital Signs Temp 98.4 F 11/07/21 11:00 Pulse 60 11/08/21 05:00 Resp 27 H 11/08/21 05:00 BP 121/69 11/08/21 05:00 Pulse Ox 93 11/08/21 05:00 11/07/21 11/07/21 11/08/21 14:59 22:59 06:59 Intake Total 1681.667 / 9889.672 4284 / 2981.667 125 / 3106.667 Output Total 490 / 490 500 / 990 205 / 1195 Balance 1191.667 / 1191.667 800 / 1991.667 -80 / 1911.667 Physical Exam Chest: OTHER: Chest wall is stable. Surgical dressings are clean and dry. Chest tube remains in good position. Resp: OTHER: Fine crackles with decreased breath sounds in the bases. Cardio: COMMON NORMALS: regular rate, regular rhythm, S1 normal heart sound present and No murmurs present (Cardio) RATE: regular rate RHYTHM: regular rhythm HEART SOUNDS: S1 normal heart sound present Urinary Catheter Management: Adkins Latex: Cath Placed During This Visit: yes Reason for Continuing Indwelling Catheter: Accurate Measurement of Urinary Output in Critically Ill Patients Urinary Catheter Date of Insertion: 11/06/21 Urinary Catheter Time of Insertion: 08:15 Data : 11/07/21 07:53 11/07/21 07:53 A&P Assessment and plan (1) Adenocarcinoma of right lung: Postop day #2 Plan: Discontinue IV fluids. Lasix 20 mg p.o. now. CBC, BMP, chest x-ray in a.m. Out of bed in chair with meals. Ambulate in hallway of ICU at least twice da sony. Encourage pulmonary toilet Will reassess chest tube output and pulmonary status this afternoon to consider discontinuing chest tube later today or possibly tomorrow. Status: Acute Attestations Medical Necessity Statement*: Postop day #2 status post right upper lobe segmentectomy Coding Level of Care Code Acute Soil Sort Worker for [facility] Diagnoses Adenocarcinoma of right lung C34.91
[2021-11-08] MEDS: ipratropium-albuterol 3 mL Neb INHALATION ×4 (07:39→19:57)
[2021-11-08] MEDS: lisinopril 10 mg Tablet 15 MG PO ×2 (08:16→18:25)
[2021-11-08] MEDS: pantoprazole DR 40 mg Tablet PO (08:16)
[2021-11-08] MEDS: FUROsemide 20 mg Tablet PO (08:16)
[2021-11-08] MEDS: metoprolol succinate ER (24 HR) 50 mg Tablet PO (08:16)
--- NOTE | 2021-11-08 12:45 | ANE.PACU2 ---
Inpatient post-anesthesia follow up: Airway intact: Yes Vital signs: Temperature 98.4 F Pulse Rate 67 Respiratory Rate 16 Blood Pressure 121/69 Pulse Oximetry 91 Oxygen Delivery Me thod Room Air Oxygen Flow Rate 3 Fraction of Inspir ed Oxygen 21 Hydration adequate: Yes Nausea and vomiting: No Pain level: 2 Mental status: Baseline Additional Comments: POD#2, site C/D/I, reasonable pain control, pump turned off for a little b/c of leg weakness.
[2021-11-08] MEDS: artificial tears Op Soln 15 mL Btl 1 DROP EYE-BOTH (16:47)
[2021-11-09] VITALS (59 sets, daily range): BP systolic 94–171; BP diastolic 61–106; PULSE 59–93; RESP 15–37; TEMP 36.6–37.4; O2SAT 89–96
[2021-11-09] MEDS: oxyCODONE-APAP 5-325 mg Tablet PO ×2 (02:45→18:31)
[2021-11-09] MEDS: ketorolac 30 mg/mL INJ IVP (02:49)
[2021-11-09 04:31] LABS: Basophils % 0.4 %; Eosinophils # 0.2 10^3/uL (0.0-0.8); Eosinophils % 2.2 %; Hematocrit 35.7 % (37.0-47.0); Hemoglobin 11.3 g/dL (11.5-15.3); Lymphocytes # 2.3 10^3/uL (0.8-4.8); Lymphocytes % 24.1 %; Mean Corpuscular HGB Conc 31.7 g/dL (30.0-36.0); Mean Corpuscular Hemoglobin 29.2 pg (28.0-34.0); Mean Corpuscular Volume 92.2 fl (81-99); Mean Platelet Volume 10.9 fL (7.4-10.4); Monocytes # 0.8 10^3/uL (0.2-0.9); Monocytes % 8.1 %; Neutrophils # 6.27 10^3/uL (1.8-7.7); Neutrophils % 64.8 %; Nucleated Red Blood Cells % 0 %; Platelet Count 204 10^3/cmm (130-400); Red Blood Count 3.87 10^6/uL (4.1-5.3); Red Cell Distribution Width 14.2 % (12.1-15.1); White Blood Count 9.7 10^3/uL (4.0-10.0)
[2021-11-09 04:58] LABS: Anion Gap 13.8 (5-19); Blood Urea Nitrogen 16 mg/dL (8-23); Calcium 8.4 mg/dL (8.5-10.5); Carbon Dioxide 25 mmol/L (22-29); Chloride 101 mmol/L (98-107); Creatinine Clr Calc Pharmacy 71.4967; Glomerular Filtration Rate 71.1 mL/min (90-130); Glucose 101 mg/dL (65-115); Osmolality Calculated 283 mOsm/kg (285-295); Potassium 3.8 mmol/L (3.5-5.1); Sodium 136 mmol/L (136-145)
--- NOTE | 2021-11-09 06:00 | XR_ITS ---
WS: [id number] XR chest 1V portable [id number] REASON FOR EXAM: POD #3 status post segmentectomy FINDINGS: The chest is essentially unchanged compared to 11/08/2021. Status post right lower lobectomy with alteration of rib anatomy and right chest tube in place. Elevation of the right hemidiaphragm. Blunting of the right and left costophrenic angles. Atelectasis and ill-defined areas of consolidation of both lower lungs. XR/XR chest 1V portable [id number] IMPRESSION: Stable postoperative chest.
--- NOTE | 2021-11-09 06:32 | PM.PN ---
Subjective Subjective: No complaints. Looks good. No airleak. Chest tube output about 200 cc past 24 hours. Right pleural tube was removed. Surgical dressing was changed. Incision clean and dry and intact. Chest wall is stable. No subcutaneous emphysema. Vitals/I&O/Wt Last Vital Signs Temp 98.1 F 11/09/21 05:19 Pulse 60 11/09/21 05:19 Resp 22 H 11/09/21 02:45 BP 123/71 11/09/21 02:00 Pulse Ox 90 11/09/21 02:00 11/08/21 11/08/21 11/09/21 14:59 22:59 06:59 Intake Total 300 / 300 150 / 450 Output Total 1120 / 1120 680 / 1800 455 / 2255 Balance -820 / -820 -680 / -1500 -305 / -1805 Physical Exam Chest: COMMONS NORMALS: normal inspection of the chest and normal palpation of entire chest wall Resp: OTHER: Crackles in the bases. Cardio: COMMON NORMALS: regular rate, regular rhythm and S1 normal heart sound present RATE: regular rate RHYTHM: regular rhythm HEART SOUNDS: S1 normal heart sound present Urinary Catheter Management: Adkins Latex: Cath Placed During This Visit: yes Reason for Continuing Indwelling Catheter: Accurate Measurement of Urinary Output in Critically Ill Patients Urinary Catheter Date of Insertion: 11/06/21 Urinary Catheter Time of Insertion: 08:15 Data : 11/09/21 03:34 11/09/21 03:34 A&P Assessment and plan (1) Adenocarcinoma of right lung: Postop day #3 Out of bed in chair and ambulate frequently today. Levaquin 500 milligrams daily. Concentrate on use of incentive spirometer. Consider discharge for home tomorrow. Home health referral. May shower tomorrow. Status: Acute Attestations Medical Necessity Statement*: Status post segmentectomy for adenocarcinoma of the right upper lobe Coding Level of Care Code Acute Strategic Sourcing Manager for [facility] Diagnoses Adenocarcinoma of right lung C34.91
--- NOTE | 2021-11-09 07:30 | ANE.PACU2 ---
Inpatient post-anesthesia follow up: Airway intact: Yes Vital signs: Temperature 98.1 F Pulse Rate 60 Respiratory Rate 22 Blood Pressure 123/71 Pulse Oximetry 90 Oxygen Delivery Me thod CPAP Oxygen Flow Rate 2 Fraction of Inspir ed Oxygen 21 Hydration adequate: Yes Nausea and vomiting: No Pain level: 2 Mental status: Baseline Additional Comments: POD#3, epidural removed by surgery, site C/D/I
[2021-11-09] MEDS: ipratropium-albuterol 3 mL Neb INHALATION ×4 (07:43→20:08)
[2021-11-09] MEDS: metoprolol succinate ER (24 HR) 50 mg Tablet PO (08:10)
[2021-11-09] MEDS: levoFLOXacin 500 mg Tablet PO (08:10)
[2021-11-09] MEDS: pantoprazole DR 40 mg Tablet PO (08:10)
[2021-11-09] MEDS: lisinopril 10 mg Tablet 15 MG PO ×2 (08:11→17:04)
--- NOTE | 2021-11-09 12:38 | PC.CHAP ---
Pastoral Care Encounter/Spiritual Assessment Type of Contact [] Declined cigar head holer visit [] Patient/Family/Request visit [] Outpatient visit [] Follow-up visit [] Physician referral [] Code/Alert [x] Routine visit [] Staff referral [] Actively dying [] Patient sleeping [] Family support [] [] Out of room [] Palliative care [] [x] Receiving care in room [] Pre-surgical visit [] Trauma [] Long length of stay [x] ICU visit [] Other: Relational/Emotional Strength [] Patient feels connected with others/family/visitors/staff [] Distress [] Loneliness/isolation [] Abandonment Spirituality of Patient [] Person of Norma [] Attends Muslim of their Norma [] Believes in Prayer [] Reads Bible or Advent materials [] There are Spiritual issues to be addressed Certified Caregiver Interventions [x] Prayer [] Active listening [] Non-anxious presence [] Spiritual/emotional support [] Crisis/trauma care [] Spiritual counseling [] Bereavement support [] Provided bereavement packet [] Provided Bible/devotional materials [] Provided toy/stuffed animal, coloring book to patient or family member [] Provided Communion [] Anointing/[place] [] Salvation [x] Completed spiritual assessment [] Other: Impact on Illness or Injury [] Angry [] Fearful [] Anxious [] Often cries [] Exhaustion [] Unable to work [] Unable to attend pentecostal [] Unable to walk/stand [] Unable to read [] Unable to drive [] Unable to eat/drink [] Unable to sleep [] Unable to be with family [] Patient intubated [] Other: Summary Time spent with patient
[2021-11-09] MEDS: docusate sodium 100 mg Capsule PO (17:04)
--- NOTE | 2021-11-09 18:34 | PC.NURSE ---
SHift Summary: Uneventful shift. Patient was up to a chair for breakfast, lunch and dinner and walked after each meal, about 200 feet each time. Has only required 2 L when sleeping, otherwise room air. Adkins removed and patient has voided since. No bowel movement yet, but patient feels the urge, Docusate given. Right chest and back dressing remains dry and intact.
[2021-11-09] MEDS: dicyclomine 10 mg Capsule PO (20:17)
[2021-11-10] VITALS (11 sets, daily range): BP systolic 133–165; BP diastolic 84–107; PULSE 70–93; RESP 16–29; TEMP 36.6–37; O2SAT 92–94
[2021-11-10] MEDS: oxyCODONE-APAP 5-325 mg Tablet PO (04:07)
[2021-11-10] MEDS: levoFLOXacin 500 mg Tablet PO (05:49)
--- NOTE | 2021-11-10 06:00 | XRR_ITS ---
PROCEDURE INFORMATION: Exam: XR Chest Exam date and time: 11/10/2021 7:31 AM Age: 71 years old Clinical indication: Dyspnea; Prior surgery; Surgery date: 3-7 days post-operative; Additional info: Postop day #4 status post segmentectomy TECHNIQUE: Imaging protocol: Radiologic exam of the chest. Views: 1 view. COMPARISON: CR XR chest 1V portable [id number] 11/09/2021 4:23 AM FINDINGS: Tubes, catheters and devices: Interval removal of the right surgical chest tube. Interval removal of the other catheter overlying the left chest. Lungs: There are unchanged small right lung volumes with postsurgical changes of the right lung. Decreased right perihilar interstitial opacities are seen. Unchanged small right pleural effusion is seen with mild right basilar atelectasis/interstitial opacities. Decreased minimal left basilar atelectasis. Pleural spaces: There is no left pleural effusion. No pneumothorax. Heart/Mediastinum: The heart size is normal. There is a mildly tortuous thoracic aorta. The trachea is in the midline. Bones/joints: No acute abnormalities. Soft tissues: Multiple external densities are seen overlying the chest, limiting assessment. XR/XR chest 1V portable [id number] IMPRESSION: 1. Interval removal of the right surgical chest tube. 2. Unchanged small right lung volumes. Decreased right perihilar interstitial opacities. Unchanged small right pleural effusion with mild right basilar atelectasis/interstitial opacities. Decreased minimal left basilar atelectasis.
[2021-11-10 06:29] LABS: Basophils # 0.1 10^3/uL (0.0-0.1); Basophils % 0.7 %; Eosinophils # 0.3 10^3/uL (0.0-0.8); Eosinophils % 3.9 %; Hematocrit 38.6 % (37.0-47.0); Hemoglobin 12.3 g/dL (11.5-15.3); Lymphocytes # 1.4 10^3/uL (0.8-4.8); Lymphocytes % 15.7 %; Mean Corpuscular HGB Conc 31.9 g/dL (30.0-36.0); Mean Corpuscular Hemoglobin 29.4 pg (28.0-34.0); Mean Corpuscular Volume 92.3 fl (81-99); Mean Platelet Volume 10.8 fL (7.4-10.4); Monocytes # 0.6 10^3/uL (0.2-0.9); Monocytes % 6.7 %; Neutrophils # 6.41 10^3/uL (1.8-7.7); Neutrophils % 72.5 %; Nucleated Red Blood Cells % 0 %; Platelet Count 243 10^3/cmm (130-400); Red Blood Count 4.18 10^6/uL (4.1-5.3); White Blood Count 8.8 10^3/uL (4.0-10.0)
[2021-11-10 06:59] LABS: Anion Gap 15.1 (5-19); Blood Urea Nitrogen 17 mg/dL (8-23); Calcium 8.8 mg/dL (8.5-10.5); Carbon Dioxide 26 mmol/L (22-29); Chloride 101 mmol/L (98-107); Creatinine Clr Calc Pharmacy 71.4967; Glucose 106 mg/dL (65-115); Osmolality Calculated 288 mOsm/kg (285-295); Potassium 4.1 mmol/L (3.5-5.1); Sodium 138 mmol/L (136-145)
[2021-11-10] MEDS: ipratropium-albuterol 3 mL Neb INHALATION (08:14)
--- NOTE | 2021-11-10 08:56 | P.DS_ITS ---
Discharge Providers Date of Admission: 11/06/21 11:21 Date of Discharge: November 10, 2021 Attending Provider at Admission: Laz Mendoza MD Attending Provider at Discharge: Laz Mendoza MD Diagnoses at Discharge Discharge Diagnosis (1) Adenocarcinoma of right lung: Details from hospital stay: Ms. Hernandez is a pleasant 71-year-old female who was electively admitted on November 06 for planned resection of a 1.5 x 1.1 cm posterior segment right upper lobe lesion found incidentally during CTA of the chest on August 14 as part of the continued surveillance for known 4.1 cm ascending aortic aneurysm. Subsequent PET scan revealed increased activity in this lesion and as well the patient has a long history of tobacco use. 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 Lymph node sampling is pending. Postoperatively, she convalesced in the ICU where she has done very well. She had minimal air leak which resolved within 12 hours post surgery. She is been receiving structured respiratory therapy and pulmonary toilet treatments. Chest tube output decreased after the second going into the third postop day and a chest tube was discontinued yesterday. Thoracotomy incision is clean and dry. Chest wall is stable. She has good use of incentive spirometry pulling over 1200 cc. Tolerating diet well. Some mild constipation though she is now passing flatus. She is eager for discharge home. She is remained stable with no arrhythmias and no fever. Mild elevation of the white count early postop has now resolved. She will be scheduled for discharge to home today with home health services which have been arranged. She has adequate oxygenation on room air and will not require supplemental oxygen postoperatively at this time. Status: Acute Reason for Visit Reason for Visit: lung mass Physical Exam Chest: COMMONS NORMALS: normal inspection of the chest and normal palpation of entire chest wall OTHER: Thoracotomy incision is clean and dry. Chest wall is stable. Resp: COMMON NORMALS: normal respiratory effort and clear to auscultation bilaterally AUSCULTATION: clear to auscultation bilaterally OTHER: Mild crackles in right base which is improving. She has a good and effective cough. Cardio: COMMON NORMALS: regular rate, regular rhythm, S1 normal heart sound present and No murmurs present (Cardio) RATE: regular rate RHYTHM: regular rhythm HEART SOUNDS: S1 normal heart sound present Extremity: COMMON NORMALS: no clubbing, cyanosis or edema Urinary Catheter Management: Adkins Latex: Cath Placed During This Visit: yes Reason for Continuing Indwelling Catheter: Accurate Measurement of Urinary Output in Critically Ill Patients Urinary Catheter Date of Insertion: 11/06/21 Urinary Catheter Time of Insertion: 08:15 Discharge Data Studies Completed and Pending Completed Studies During Hospitalization Category Date Time Status CXRP [XR chest 1V portable [id number]] Routine Exams 11/06/21 11:15 Completed XR chest 1V portable [id number] Routine Exams 11/07/21 06:00 Completed XR chest 1V portable [id number] Routine Exams 11/08/21 06:00 Completed XR chest 1V portable [id number] Routine Exams 11/09/21 06:00 Completed XR chest 1V portable [id number] Routine Exams 11/10/21 06:00 Completed Pathology: Surgical [PTH] Routine Pth 11/06/21 09:23 Completed Radiology Impressions Chest X-Ray 11/10/21 06:00 IMPRESSION: 1. Interval removal of the right surgical chest tube. 2. Unchanged small right lung volumes. Decreased right perihilar interstitial opacities. Unchanged small right pleural effusion with mild right basilar atelectasis/interstitial opacities. Decreased minimal left basilar atelectasis. Laboratory Results WBC 8.8 10^3/uL (4.0-10.0) 11/10/21 05:55 RBC 4.18 10^6/uL (4.1-5.3) 11/10/21 05:55 Hgb 12.3 g/dL (11.5-15.3) 11/10/21 05:55 Hct 38.6 % (37.0-47.0) 11/10/21 05:55 MCV 92.3 fl (81-99) 11/10/21 05:55 MCH 29.4 pg (28.0-34.0) 11/10/21 05:55 MCHC 31.9 g/dL (30.0-36.0) 11/10/21 05:55 RDW 14.0 % (12.1-15.1) 11/10/21 05:55 Plt Count 243 10^3/cmm (130-400) 11/10/21 05:55 MPV 10.8 fL (7.4-10.4) H 11/10/21 05:55 Neut % (Auto) 72.5 % 11/10/21 05:55 Lymph % (Auto) 15.7 % 11/10/21 05:55 [place] % (Auto) 6.7 % 11/10/21 05:55 Eos % (Auto) 3.9 % 11/10/21 05:55 Baso % (Auto) 0.7 % 11/10/21 05:55 Neut # (Auto) 6.41 10^3/uL (1.8-7.7) 11/10/21 05:55 Lymph # (Auto) 1.4 10^3/uL (0.8-4.8) 11/10/21 05:55 [place] # (Auto) 0.6 10^3/uL (0.2-0.9) 11/10/21 05:55 Eos # (Auto) 0.3 10^3/uL (0.0-0.8) 11/10/21 05:55 Baso # (Auto) 0.1 10^3/uL (0.0-0.1) 11/10/21 05:55 Nucleated RBC % (auto) 0 % 11/10/21 05:55 Nucleated RBCs # 0.0 /100WBC 11/10/21 05:55 PT 13.60 SECONDS (12.1-14.9) 11/01/21 09:40 INR 1.01 (0.8-1.2) 11/01/21 09:40 Sodium 138 mmol/L (136-145) 11/10/21 05:55 Potassium 4.1 mmol/L (3.5-5.1) 11/10/21 05:55 Chloride 101 mmol/L (98-107) 11/10/21 05:55 Carbon Dioxide 26 mmol/L (22-29) 11/10/21 05:55 Anion Gap 15.1 (5-19) 11/10/21 05:55 BUN 17 mg/dL (8-23) 11/10/21 05:55 Creatinine 0.7 mg/dL (0.5-0.9) 11/10/21 05:55 GFR Calculation 83.0 mL/min (90-130) L 11/10/21 05:55 Glucose 106 mg/dL (65-115) 11/10/21 05:55 Calculated Osmolality 288 mOsm/kg (285-295) 11/10/21 05:55 Calcium 8.8 mg/dL (8.5-10.5) 11/10/21 05:55 Urine Color Yellow (Yellow) 11/01/21 09:09 Urine Appearance Clear (CLEAR) 11/01/21 09:09 Urine pH 6 (5-7) 11/01/21 09:09 Ur Specific [place] 1.010 (1.005-1.030) 11/01/21 09:09 Urine Protein Neg (Negative) 11/01/21 09:09 Urine Glucose (UA) Norm (Normal) 11/01/21 09:09 Urine Ketones Negative (Negative) 11/01/21 09:09 Urine Blood Neg (Negative) 11/01/21 09:09 Urine Nitrate Negative (Negative) 11/01/21 09:09 Urine Bilirubin Neg (Negative) 11/01/21 09:09 Urine Urobilinogen Norm mg/dL (Negative) 11/01/21 09:09 Ur Leukocyte Esterase Negative (Negative) 11/01/21 09:09 Blood Type O Positive 11/01/21 09:41 Rho(D) Type Positive 11/01/21 09:41 Antibody Screen Negative 11/01/21 09:41 Crossmatch See Detail 11/01/21 09:41 Procedures Performed Right upper lobe posterior segmentectomy on November 06, 2021 Vitals Last Vital Signs Temp 98.3 F 11/10/21 05:36 Pulse 78 11/10/21 08:16 Resp 16 11/10/21 08:16 BP 156/91 11/10/21 08:00 Pulse Ox 92 11/10/21 08:20 Discharge Plan Discharge Patient Disposition: Home Health Service Condition: Stable Prescriptions: New oxycodone-acetaminophen 5-325 mg Tablet 1 tab PO Q6H PRN (Reason: Moderate To Severe Pain) Qty: 20 0RF levofloxacin 500 mg Tablet 500 mg PO DAILY@0600 Qty: 5 0RF Continued metoprolol succinate [Toprol XL] 50 mg tablet extended release 24 hr 50 mg PO DAILY 0RF ibuprofen 400 mg tablet 400 mg PO Q8H PRN (Reason: Pain) 0RF dicyclomine 10 mg capsule 10 mg PO QID PRN (Reason: Abdominal Discomfort) 0RF diphenoxylate-atropine 2.5-0.025 mg tablet 1 tab PO BID PRN (Reason: Diarrhea) 0RF nitroglycerin [Nitrostat] 0.4 mg tablet, sublingual 0.4 mg SUBLINGUAL Q5M PRN (Reason: chest pain) Qty: 25 6RF Rx Instructions: do not exceed 3 doses per episode lisinopril 2.5 mg tablet 15 mg PO BID 0RF pantoprazole 40 mg tablet,delayed release (DR/EC) 40 mg PO BID PRN (Reason: Acid Reflux) 0RF Anoro Ellipta 62.5-25 mcg/actuation blister with device 1 inh inhalation DAILY 60 Days Qty: 60 4RF Discharge Orders: Discharge Order (Routine); Ordered 11/10/21 Ordered By: Laz Mendoza Referrals: [facility] ([facility]) [Outside] Cheyanne Peterson DO [Physician] - 11/21/21 1:15 pm (Please be there atleast 15minutes early. ) Discharge Diet: Usual diet Discharge Activity: Limit activity as instructed Patient Instructions: Opioid Safety Activity Restrictions/Additional Instructions: May shower daily. No swimming or tub baths x2 weeks May cover incision as desired to prevent irritation from clothing Report any redness, local swelling, fever, productive cough, shortness of breath, or increasing pain Discharge Attestations Time Spent in Discharge Care*: less than 30 min Specific Discharge Activities: educating patient, discussing with porter sample case/social workers/dc planners, documenting/other paperwork and evaluating patient/reviewing data Time Spent in Smoking Cessation: 3 to 10 minutes Status at Discharge: Cognitive status at discharge: cognitively intact , Behavioral status at discharge: cooperative , Functional status at discharge: independent ambulation , Overall status at discharge: patient is progressing back to baseline Quality Metrics Clinical Quality Measures [ No reported AMI, CVA or VTE this stay] Coding Level of Care Code Acute Chg FW DC note Diagnoses Adenocarcinoma of right lung C34.91
[2021-11-10] MEDS: pantoprazole DR 40 mg Tablet PO (09:45)
[2021-11-10] MEDS: lisinopril 10 mg Tablet 15 MG PO (09:45)
[2021-11-10] MEDS: metoprolol succinate ER (24 HR) 50 mg Tablet PO (09:45)
== END 2021-11-10 11:13 | disposition home health service (06) | DRG 165 ==
LOC: ICU 11:22
PROVIDERS: Admitting Provider Thoracic Surgery (Cardiothoracic Vascular Surgery); Visit Provider Thoracic Surgery (Cardiothoracic Vascular Surgery)
PROC: 0BBC0ZZ Excision of Right Upper Lung Lobe, Open Approach (ICD-10-PCS; CPT 32480; principal; 2021-11-06 07:00)
PROC: 0BJ08ZZ Inspection of Tracheobronchial Tree, Via Natural or Artificial Opening Endoscopic (ICD-10-PCS; CPT 31622; 2021-11-06 07:00)
DX: C34.11 Malignant neoplasm of upper lobe, right bronchus or lung (principal); I71.4 Abdominal aortic aneurysm, without rupture; Z80.9 Family history of malignant neoplasm, unspecified; K21.9 Gastro-esophageal reflux disease without esophagitis; I10 Essential (primary) hypertension; G47.33 Obstructive sleep apnea (adult) (pediatric); Z99.89 Dependence on other enabling machines and devices; E89.0 Postprocedural hypothyroidism; Z87.891 Personal history of nicotine dependence
CPT/HCPCS: 36415; 51702; 71045; 80048; 81003; 85025; 85610; 86850; 86900; 86920; 88307; 88309; 88331; 88342; 93005; 94640; 94660; 94664; C2816; J0690; J1100; J1200; J1885; J2250; J2370; J2405; J2704; J2710; J2795; J3010; J3370; J3490

== ENCOUNTER 2021-11-20 12:00 | Oncology outpatient (recurring) (ONCR) | payer MEDICARE, OTHER, SELFPAY | END 2021-12-19 23:59 | disposition home or self-care (01) | PROVIDERS: Visit Provider Internal Medicine Medical Oncology | DX: C34.11 Malignant neoplasm of upper lobe, right bronchus or lung (principal); Z87.891 Personal history of nicotine dependence | CPT/HCPCS: 99204 ==

== ENCOUNTER → 2021-11-23 11:04 | Outpatient (BNVA) | payer MEDICARE, OTHER, SELFPAY | PROVIDERS: PCP Family Medicine; Visit Provider Internal Medicine Critical Care Medicine | DX: C34.11 Malignant neoplasm of upper lobe, right bronchus or lung (principal); J98.4 Other disorders of lung; G47.33 Obstructive sleep apnea (adult) (pediatric); Z87.891 Personal history of nicotine dependence | CPT/HCPCS: 99214 ==

== ENCOUNTER → 2022-02-21 08:41 | Outpatient (BNVA) | payer MEDICARE, OTHER, SELFPAY | PROVIDERS: PCP Family Medicine; Visit Provider Internal Medicine Pulmonary Disease | DX: G47.33 Obstructive sleep apnea (adult) (pediatric) (principal); C34.11 Malignant neoplasm of upper lobe, right bronchus or lung; J98.4 Other disorders of lung; Z87.891 Personal history of nicotine dependence | CPT/HCPCS: 99214 ==

== ENCOUNTER 2022-05-09 12:49 | Outpatient (CLI) | payer MEDICARE, OTHER, SELFPAY | END 2022-05-09 12:50 | disposition home or self-care (01) | LOC: RT 12:50 | PROVIDERS: PCP Family Medicine; Visit Provider Internal Medicine Pulmonary Disease | DX: J44.9 Chronic obstructive pulmonary disease, unspecified (principal); C34.11 Malignant neoplasm of upper lobe, right bronchus or lung | CPT/HCPCS: 94060; 94618; 94726; 94729; J7613 ==

== ENCOUNTER 2022-05-23 10:34 | Oncology outpatient (recurring) (ONCR) | payer MEDICARE, OTHER, SELFPAY ==
[2022-05-23 10:53] LABS: Basophils # 0.1 10^3/uL (0.0-0.1); Basophils % 0.9 %; Eosinophils # 0.2 10^3/uL (0.0-0.8); Eosinophils % 2.8 %; Hematocrit 43.5 % (37.0-47.0); Hemoglobin 13.8 g/dL (11.5-15.3); Lymphocytes # 2.5 10^3/uL (0.8-4.8); Lymphocytes % 31.9 %; Mean Corpuscular HGB Conc 31.7 g/dL (30.0-36.0); Mean Corpuscular Hemoglobin 29.1 pg (28.0-34.0); Mean Corpuscular Volume 91.6 fl (81-99); Mean Platelet Volume 10.1 fL (7.4-10.4); Monocytes # 0.6 10^3/uL (0.2-0.9); Monocytes % 6.9 %; Neutrophils # 4.54 10^3/uL (1.8-7.7); Neutrophils % 57.2 %; Nucleated Red Blood Cells % 0 %; Platelet Count 272 10^3/cmm (130-400); Red Blood Count 4.75 10^6/uL (4.1-5.3); White Blood Count 7.9 10^3/uL (4.0-10.0)
[2022-05-23 11:20] LABS: Alanine Aminotransferase 21 U/L (0-33); Albumin Level 4.2 g/dL (3.5-5.2); Alkaline Phosphatase 69 U/L (35-105); Anion Gap 17.6 (5-19); Aspartate Amino Transferase 20 U/L (0-32); Blood Urea Nitrogen 15 mg/dL (8-23); Calcium 9.5 mg/dL (8.5-10.5); Carbon Dioxide 24 mmol/L (22-29); Chloride 103 mmol/L (98-107); Globulin 3.2 g/dL (1.3-4.6); Glomerular Filtration Rate 54.8 mL/min (90-130); Glucose 113 mg/dL (65-115); Osmolality Calculated 292 mOsm/kg (285-295); Potassium 4.6 mmol/L (3.5-5.1); Sodium 140 mmol/L (136-145); Total Bilirubin 0.4 mg/dL (0.15-1.2); Total Protein 7.4 g/dL (6.6-8.7)
== END 2022-06-18 23:59 | disposition home or self-care (01) ==
PROVIDERS: PCP Family Medicine; Visit Provider Internal Medicine Medical Oncology
DX: Z08 Encounter for follow-up examination after completed treatment for malignant neoplasm; Z85.118 Personal history of other malignant neoplasm of bronchus and lung; Z90.2 Acquired absence of lung [part of]; Z87.891 Personal history of nicotine dependence
CPT/HCPCS: 80053; 85025; 99213

== ENCOUNTER → 2022-05-29 09:26 | Outpatient (BNVA) | payer MEDICARE, OTHER, SELFPAY | PROVIDERS: PCP Family Medicine; Visit Provider Internal Medicine Pulmonary Disease | DX: C34.11 Malignant neoplasm of upper lobe, right bronchus or lung (principal); J98.4 Other disorders of lung; G47.33 Obstructive sleep apnea (adult) (pediatric); Z87.891 Personal history of nicotine dependence; Z90.2 Acquired absence of lung [part of] | CPT/HCPCS: 99214 ==

== ENCOUNTER 2022-06-03 09:52 | Outpatient (CLI) | payer MEDICARE, OTHER, SELFPAY ==
--- NOTE | 2022-06-03 10:30 | CT_ITS ---
WS: [id number] CT CHEST WITH INTRAVENOUS CONTRAST HISTORY: surveillance TECHNIQUE: Contiguous 5 mm axial imaging performed on the thorax. Coronal and sagittal reformats are submitted. All CT scans at [facility] use at least one of these dose optimization techniques: automated exposure control; mA and/or kV adjustment per patient size (includes targeted exams where dose is matched to clinical indication); or iterative reconstruction. CONTRAST: Omnipaque 350; 100 mL IV. DLP: 478.09 mGy.cm COMPARISON: 08/14/2021, 04/18/2017 Lungs and central airway: Prior RIGHT upper lobe segmentectomy for neoplasm. There is scarring and po stsurgical changes at the segmentectomy site. No recurrent mass identified. Mild volume loss in the R IGHT upper lobe. Slight elevation of the RIGHT hemidiaphragm with RIGHT basilar atelectasis. Pleura: Normal. No pleural effusion. Heart and pericardium: Mild cardiomegaly with no pericardial effusion. Mediastinum and nancy: Single 9 mm RIGHT hilar lymph node is unchanged. Vessels: 2. Mildly ectatic thoracic aorta but nonaneurysmal. Normal size pulmonary artery. Chest wall and lower neck: RIGHT thyroid nodule measures 2.5 x 1.9 cm. Similar to the prior studies. No increase in size. Upper abdomen: Mildly high riding liver. Hepatic steatosis. Visualized gallbladder is negative. LEFT renal cyst measures 4.9 x 4.1 cm. Osseous structures: No destructive process. CT/CT chest w con* [id number] IMPRESSION: 1. Status post RIGHT upper lobe segmentectomy for neoplasm. 2. Postsurgical changes in the RIGHT upper lobe with no recurrent mass or joanne opathy. 3. Ectatic thoracic aorta. 4. Negative adrenal glands. 5. Hepatic steatosis. 6. Stable RIGHT thyroid nodule at 2.5 x 1.9 cm.
[2022-06-03] MEDS: iohexol 350 mg/mL 500 mL Btl (per mL) IV (10:31)
== END 2022-06-03 09:53 | disposition home or self-care (01) ==
LOC: RAD 09:56
PROVIDERS: PCP Family Medicine; Visit Provider Internal Medicine Medical Oncology
DX: C34.11 Malignant neoplasm of upper lobe, right bronchus or lung (principal); E04.1 Nontoxic single thyroid nodule; K76.0 Fatty (change of) liver, not elsewhere classified; I77.810 Thoracic aortic ectasia
CPT/HCPCS: 71260; Q9967

== ENCOUNTER → 2022-06-11 11:45 | Outpatient (BNVA) | payer MEDICARE, OTHER, SELFPAY | PROVIDERS: PCP Family Medicine; Visit Provider Family Medicine | DX: I10 Essential (primary) hypertension (principal) | CPT/HCPCS: 80061 ==

== ENCOUNTER → 2022-09-02 12:54 | Outpatient (BNVA) | payer MEDICARE, OTHER, SELFPAY | PROVIDERS: PCP Family Medicine; Visit Provider Internal Medicine | DX: R07.2 Precordial pain (principal); I10 Essential (primary) hypertension; K21.9 Gastro-esophageal reflux disease without esophagitis; G47.33 Obstructive sleep apnea (adult) (pediatric); I71.20 Thoracic aortic aneurysm, without rupture, unspecified; Z87.891 Personal history of nicotine dependence | CPT/HCPCS: 99214 ==

== ENCOUNTER 2022-12-26 10:37 | Oncology outpatient (recurring) (ONCR) | payer MEDICARE, OTHER, SELFPAY ==
[2022-12-26 10:41] VITALS: BP 145/85; PULSE 52; RESP 18; TEMP 36.5; O2SAT 98
[2022-12-26 11:01] LABS: Basophils # 0.1 10^3/uL (0.0-0.1); Eosinophils # 0.2 10^3/uL (0.0-0.8); Eosinophils % 3.1 %; Hematocrit 42.4 % (36-47); Lymphocytes # 2.1 10^3/uL (0.8-4.8); Mean Corpuscular HGB Conc 32.1 g/dL (30-55); Mean Corpuscular Hemoglobin 29.4 pg (27-33); Mean Corpuscular Volume 91.8 fl (85-98); Monocytes # 0.5 10^3/uL (0.2-0.9); Monocytes % 6.9 %; Neutrophils # 4.47 10^3/uL (1.8-7.7); Neutrophils % 60.7 %; Nucleated Red Blood Cells % 0 %; Platelet Count 263 10^3/cmm (157-399); Red Blood Count 4.62 10^6/uL (3.85-5.65); Red Cell Distribution Width 13.3 % (12.1-15.1); White Blood Count 7.36 10^3/uL (3.29-11.43)
[2022-12-26 11:17] LABS: Alanine Aminotransferase 29 U/L (0-33); Albumin Level 4.2 g/dL (3.5-5.2); Alkaline Phosphatase 56 U/L (35-105); Anion Gap 13.3 (5-19); Aspartate Amino Transferase 24 U/L (0-32); Blood Urea Nitrogen 14 mg/dL (8-23); Carbon Dioxide 26 mmol/L (22-29); Chloride 105 mmol/L (98-107); Globulin 2.9 g/dL (1.3-4.6); Glomerular Filtration Rate 70.9 mL/min (90-130); Glucose 92 mg/dL (65-115); Osmolality Calculated 290 mOsm/kg (285-295); Potassium 4.3 mmol/L (3.5-5.1); Sodium 140 mmol/L (136-145); Total Bilirubin 0.3 mg/dL (0.15-1.2); Total Protein 7.1 g/dL (6.6-8.7)
== END 2023-01-18 23:59 | disposition home or self-care (01) ==
PROVIDERS: PCP Family Medicine; Visit Provider Internal Medicine Medical Oncology
DX: Z08 Encounter for follow-up examination after completed treatment for malignant neoplasm (principal); Z85.118 Personal history of other malignant neoplasm of bronchus and lung; Z90.2 Acquired absence of lung [part of]; Z87.891 Personal history of nicotine dependence
CPT/HCPCS: 36415; 80053; 85025; 99213

== ENCOUNTER → 2023-01-09 10:56 | Outpatient (BNVA) | payer MEDICARE, OTHER, SELFPAY | PROVIDERS: PCP Family Medicine; Visit Provider Surgery | DX: Z80.0 Family history of malignant neoplasm of digestive organs (principal); Z12.11 Encounter for screening for malignant neoplasm of colon | CPT/HCPCS: 99203 ==

== ENCOUNTER 2023-01-13 14:37 | Outpatient (CLI) | payer MEDICARE, OTHER, SELFPAY ==
--- NOTE | 2023-01-13 14:45 | MM_ITS ---
WS: [id number] BILATERAL 3D TOMOSYNTHESIS DIGITAL SCREENING MAMMOGRAPHY WITH CAD CLINICAL INFORMATION: screening HISTORY: Screening mammogram. No current complaints. COMPARISON: 2020 TECHNIQUE: Bilateral CC and MLO views. FINDINGS: Scattered fibroglandular densities bilaterally. No suspicious focal mass, asymmetry, calcifications, or architectural distortion. No evidence of malignancy. Incidental punctate calcifications. IMPRESSION: MM/[place] [id number] BI-RADS: 2-Benign FOLLOW UP: 1 Year Follow-up Recommend return to annual screening mammography.
== END 2023-01-13 14:38 | disposition home or self-care (01) ==
PROVIDERS: PCP Family Medicine; Visit Provider Family Medicine
DX: Z12.31 Encounter for screening mammogram for malignant neoplasm of breast (principal)
CPT/HCPCS: 77063; 77067

== ENCOUNTER 2023-01-20 13:41 | Outpatient (CLI) | payer MEDICARE, OTHER, SELFPAY ==
--- NOTE | 2023-01-20 14:00 | CT_ITS ---
WS: [id number] CT CHEST TECHNIQUE: Contrast enhanced CT of the chest with coronal and sagittal reformatted images. CLINICAL INFORMATION: follow up lung ca COMPARISON: CT 06/03/2022 DLP: 440.[address] scans at [facility] use at least one of these dose optimization techniques: automated e xposure control; mA and/or kV adjustment per patient size (includes targeted exams where dose is matc hed to clinical indication); or iterative reconstruction. FINDINGS: Stable prior postoperative changes partial RIGHT upper lobe resection for neoplasm. Stable postoperat mira changes in the RIGHT upper lobe with parenchymal fibrosis. No evidence of recurrent parenchymal m ass or lesion. No mediastinal or hilar lymphadenopathy. Stable volume loss in the RIGHT lung. Subsegm ental atelectasis RIGHT lower lobe. Associated elevation of the RIGHT hemidiaphragm. Previously descr ibed 9 mm RIGHT hilar lymph node is unchanged. Stable RIGHT thyroid nodule measuring 2.6 x 1.9 cm. Ectatic ascending thoracic aorta measuring 3.7 cm is unchanged. Aortic calcification. Coronary calcification. No axillary lymphadenopathy. Diffuse fat ty filtration of the liver. Normal GE junction. LEFT renal cyst measuring 5.0 x 4.0 cm Adrenal glands are normal. Tiny esophageal hernia. Splenic artery calcification. Mild thoracic kyphos is. Dorsal midline ossification posterior to the T11 vertebral body with moderate central canal steno sis. This is unchanged from the prior studies. IMPRESSION: 1. Stable postoperative changes partial RIGHT upper lobe resection. No evidence of recurrent mass or lesion. 2. Stable RIGHT hilar 9 mm lymph node. 3. Ectatic ascending thoracic aorta unchanged. 4. Stable RIGHT thyroid nodule. 5. Diffuse fatty filtration of the liver.
[2023-01-20] MEDS: iohexol 350 mg/mL 500 mL Btl (per mL) IV (14:26)
== END 2023-01-20 13:42 | disposition home or self-care (01) ==
PROVIDERS: PCP Family Medicine; Visit Provider Internal Medicine Medical Oncology
DX: C34.11 Malignant neoplasm of upper lobe, right bronchus or lung (principal); E04.1 Nontoxic single thyroid nodule
CPT/HCPCS: 71260; Q9967

== ENCOUNTER 2023-02-26 11:01 | Inpatient (IN) | payer MEDICARE, OTHER, SELFPAY ==
[2023-02-26] VITALS (125 sets, daily range): BP systolic 117–161; BP diastolic 61–106; PULSE 73–105; RESP 14–43; TEMP 36.1–37.1; O2SAT 89–98; BMI 30.7
[2023-02-26] MEDS: sodium chloride 0.9% 1,000 ML 30 ML IV (07:19)
--- NOTE | 2023-02-26 07:51 | P.ANESASSM_ITS ---
Pre-Anesthetic Assessment Height/Weight: Height 1.68 m Weight 86.183 kg Temp Pulse Resp BP Pulse Ox O2 Del Method 97.1 F L 105 H 18 149/97 94 Room Air 02/26/23 07:07 02/26/23 07:07 02/26/23 07:07 02/26/23 07:07 02/26/23 07:07 02/26/23 07:07 Operation Date: 02/26/23 08:00 Proposed Procedures p Colonoscopy(Not Applicable) - Luan June DO Familial anesthetic complications: none Was Beta Lashawn taken within 24 hours: Yes Was Clonidine taken within 24 hours: N/A Last intake: Intake Last Liquid Date 02/25/23 Last Liquid Time 13:00 Last Solid Date 02/24/23 Last Solid Time 18:00 Social No alcohol and No tobacco Exam alert, oriented x 3, clear to auscultation bilaterally and regular rate & rhythm Airway Submandibular: within normal limits Cervical ROM: within normal limits Mallampati: Class II Dentition: chipped Pulmonary Chronic Obstructive Pulmonary Disease and Sleep Apnea CV/HEM Hypertension and Peripheral Vascular Disease (Thoracic aneurysm) GI Gastroesophageal Reflux Disease Metabolic Hyperlipidemia and Morbid Obesity [facility] [place] Osteoarthritis/DJD Anesthetic Plan ASA status: 3 Anesthesia: MAC Medications/Allergies Home Medications Medication Instructions Recorded Confirmed Last Taken Type nitroglycerin 0.4 mg sublingual 0.4 mg sublingual Q5M PRN chest 12/29/19 02/26/23 1 Year Ago Rx tablet (Nitrostat) pain #25 tabs ~02/26/22 pantoprazole 40 mg tablet,delayed 40 mg PO BID PRN Acid Reflux 07/31/21 02/26/23 6 Months Ago History release ~08/26/22 multivitamin 1 tab PO DAILY 11/20/21 02/26/23 2 Months Ago History ~12/27/22 lisinopril 10 mg tablet 10 mg PO BID 90 days #180 tabs 04/19/22 02/26/23 02/25/23 Rx lisinopril 5 mg tablet 5 mg PO BID 90 days #180 tabs 04/19/22 02/26/23 02/25/23 Rx metoprolol succinate 50 mg 50 mg PO DAILY 90 days #90 tabs 04/19/22 02/26/23 02/26/23 04:30 Rx tablet,extended release 24 hr (Toprol XL) simvastatin 20 mg tablet 20 mg PO DAILY #90 tabs 06/12/22 02/26/23 02/25/23 Rx umeclidinium 62.5 mcg-vilanterol 1 inh inhalation DAILY 90 days #60 09/10/22 02/26/23 02/26/23 04:30 Rx 25 mcg/actuation powdr for ea inhalation (Anoro Ellipta) dicyclomine 10 mg capsule 10 mg PO QID PRN Abdominal 01/07/23 02/26/23 02/24/23 Rx Discomfort #360 caps meloxicam 7.5 mg tablet 7.5 mg PO DAILY #90 tabs 01/07/23 02/26/23 02/25/23 Rx rsv vaccine #1 ea 01/07/23 02/26/23 Unknown Rx diphenoxylate-atropine 2.5 1 tab PO BID PRN Diarrhea 02/24/23 02/26/23 02/24/23 History mg-0.025 mg tablet (Lomotil) Allergies Allergy/AdvReac Type Severity Reaction Status Date / Time nitrofurantoin Allergy Unknown Unknown Verified 02/26/23 07:01 [From Macrobid] Penicillins Allergy Unknown Unknown Verified 02/26/23 07:01 Sulfa (Sulfonamide Allergy Unknown Unknown Verified 02/26/23 07:01 Antibiotics) vancomycin Allergy ADR-Itching Verified 02/26/23 07:01 Current Medications Generic Name Dose Route Start Last Admin Trade Name Freq PRN Reason Stop Dose Admin Sodium Chloride 1,000 mls @ 30 mls/hr 02/26/23 07:00 02/26/23 07:19 Sodium Chloride 0.9% IV 02/27/23 06:59 30 mls/hr .Q24H EMILEE Administration PFSH Anesthesia Medical History (Updated 01/09/23 @ 11:19 by Luan June DO) COPD (chronic obstructive pulmonary disease) Dyslipidemia Family history of colon cancer GERD (gastroesophageal reflux disease) HTN (hypertension) Non-small cell lung cancer LINDA (obstructive sleep apnea) Compliant with CPAP Thoracic aortic aneurysm Surgical History (Updated 01/09/23 @ 11:19 by Luan June DO) Hx of colonoscopy S/P shoulder surgery scope on the left S/P subtotal thyroidectomy (~1984) Left S/P thoracotomy (11/06/21) Thoracotomy with right upper lobe posterior segmentectomy Family History Mother Cancer Ovarian CA Hypertension Father Cancer Colon CA Brother Myocardial infarction CAD (coronary artery disease) Alcoholism Other Diabetes Denies family history of Clotting disorder Dementia Hyperlipidemia Psychiatric illness Chronic kidney disease (CKD) Suicide Anesthesia complication Bleeding disorder Lung disease Stroke Social History Smoking and tobacco/nicotine status: former use of tobacco/nicotine Quit status (tobacco/nicotine): has quit using Year quit tobacco: 2015 Former quit date comment: 1ppd X 46 years, started at age 19 Alcohol intake: current Alcohol intake frequency: holidays/special occasions only Data Anesthesia Cardiac Studies: No Data to Display
--- NOTE | 2023-02-26 07:58 | PM.HP ---
Providers/Chief Complaint Primary Care Provider: Cheyanne Peterson DO Chief Complaint: 15660 Z80.0 History of Present Illness Elizabeth Hernandez is a 72 year old female Review of Systems General: Reports: 10 or more systems reviewed and unremarkable except in HPI and below Medications/Allergies Home Medications Medication Instructions Recorded Confirmed Last Taken Type nitroglycerin 0.4 mg sublingual 0.4 mg sublingual Q5M PRN chest 12/29/19 02/26/23 1 Year Ago Rx tablet (Nitrostat) pain #25 tabs ~02/26/22 pantoprazole 40 mg tablet,delayed 40 mg PO BID PRN Acid Reflux 07/31/21 02/26/23 6 Months Ago History release ~08/26/22 multivitamin 1 tab PO DAILY 11/20/21 02/26/23 2 Months Ago History ~12/27/22 lisinopril 10 mg tablet 10 mg PO BID 90 days #180 tabs 04/19/22 02/26/23 02/25/23 Rx lisinopril 5 mg tablet 5 mg PO BID 90 days #180 tabs 04/19/22 02/26/23 02/25/23 Rx metoprolol succinate 50 mg 50 mg PO DAILY 90 days #90 tabs 04/19/22 02/26/23 02/26/23 04:30 Rx tablet,extended release 24 hr (Toprol XL) simvastatin 20 mg tablet 20 mg PO DAILY #90 tabs 06/12/22 02/26/23 02/25/23 Rx umeclidinium 62.5 mcg-vilanterol 1 inh inhalation DAILY 90 days #60 09/10/22 02/26/23 02/26/23 04:30 Rx 25 mcg/actuation powdr for ea inhalation (Anoro Ellipta) dicyclomine 10 mg capsule 10 mg PO QID PRN Abdominal 01/07/23 02/26/23 02/24/23 Rx Discomfort #360 caps meloxicam 7.5 mg tablet 7.5 mg PO DAILY #90 tabs 01/07/23 02/26/23 02/25/23 Rx rsv vaccine #1 ea 01/07/23 02/26/23 Unknown Rx diphenoxylate-atropine 2.5 1 tab PO BID PRN Diarrhea 02/24/23 02/26/23 02/24/23 History mg-0.025 mg tablet (Lomotil) Allergies Allergy/AdvReac Type Severity Reaction Status Date / Time nitrofurantoin Allergy Unknown Unknown Verified 02/26/23 07:01 [From Macrobid] Penicillins Allergy Unknown Unknown Verified 02/26/23 07:01 Sulfa (Sulfonamide Allergy Unknown Unknown Verified 02/26/23 07:01 Antibiotics) vancomycin Allergy ADR-Itching Verified 02/26/23 07:01 PFSH Acute PFSH: Medical History (Updated 01/09/23 @ 11:19 by Luan June DO) COPD (chronic obstructive pulmonary disease) Dyslipidemia Family history of colon cancer GERD (gastroesophageal reflux disease) HTN (hypertension) Non-small cell lung cancer LINDA (obstructive sleep apnea) Compliant with CPAP Thoracic aortic aneurysm Surgical History (Updated 01/09/23 @ 11:19 by Luan June DO) Hx of colonoscopy S/P shoulder surgery scope on the left S/P subtotal thyroidectomy (~1984) Left S/P thoracotomy (11/06/21) Thoracotomy with right upper lobe posterior segmentectomy Family History Mother Cancer Ovarian CA Hypertension Father Cancer Colon CA Brother Myocardial infarction CAD (coronary artery disease) Alcoholism Other Diabetes Denies family history of Clotting disorder Dementia Hyperlipidemia Psychiatric illness Chronic kidney disease (CKD) Suicide Anesthesia complication Bleeding disorder Lung disease Stroke Social History Smoking and tobacco/nicotine status: former use of tobacco/nicotine Quit status (tobacco/nicotine): has quit using Year quit tobacco: 2016 Former quit date comment: 1ppd X 46 years, started at age 19 Alcohol intake: current Alcohol intake frequency: holidays/special occasions only Vitals/I&O/Wt Last Vital Signs Temp 97.1 F L 02/26/23 07:07 Pulse 105 H 02/26/23 07:07 Resp 18 02/26/23 07:07 BP 149/97 02/26/23 07:07 Pulse Ox 94 02/26/23 07:07 O2 Del Method Room Air 02/26/23 07:07 Weight last 48 hrs Weight 190 lb A&P Assessment and plan (1) Family history of colon cancer: (2) History of colon polyps: Plan Screening colonoscopy Attestations Medical Necessity Statement*: Home Coding Level of Care Code Acute Code for Chg Fwd Diagnoses Family history of colon cancer Z80.0 History of colon polyps Z86.010
[2023-02-26] MEDS: metroNIDAZOLE IV 500 MG/100 ML PREMIX 100 MG IV ×3 (09:03→21:35)
[2023-02-26] MEDS: cefTRIAXone 1,000 MG in sodium chloride 0.9% (plus) 50 ML 100 MG IV (09:05)
--- NOTE | 2023-02-26 10:54 | PM.OP ---
Operative Report Date of procedure: February 26, 2023 Pre-op diagnosis: Sigmoid colon perforation Post-op diagnosis: same Procedure done: Exploratory laparotomy with sigmoid colectomy and end colostomy formation Implants: 19 [place] Cr drain in the pelvis Specimens removed/disposition: Sigmoid colon Surgeon: Luan June DO Anesthesia: General Estimated blood loss (mL): 50 Complications: None apparent Brief History: This very pleasant 72-year-old female who came in for a screening colonoscopy. During the procedure her sigmoid colon was inadvertently perforated. Exploratory laparotomy was indicated. The risk and benefits of this procedure, including but not limited to, bleeding, scar, numbness, pain, infection, possible need for bowel resection, malfunctioning colostomy, anastomotic leak, damage to surrounding structures, were explained to her family and consent was obtained. Procedure: Patient was wheeled out room placed on the OR table in supine position. The abdomen was inspected prepped and draped in usual sterile fashion. A timeout was performed. All present were in agreement. General tracheal intubation was achieved by the department of anesthesia. A stab incision was made in the left upper quadrant with a 15 blade scalpel and a Veress needle was placed in the abdomen to critically reduce intra-abdominal insufflation from the colonoscopy. A 10 blade scalpel was then used to make a midline incision from the umbilicus down to the pubic symphysis. Dissection was carried down through the subcutaneous tissue with electrocautery. Veress needle was removed. The fascia was then opened sharply with Metzenbaum scissors. Fascia was opened the rest of the way with electrocautery. Peritoneum was opened bluntly. A large full-thickness tear was seen in the sigmoid colon proximally and distally to this there were multiple serosal tears. The tear was too large to repair primarily. Decision was made to perform a sigmoid colon resection. The contour was used to transect the colon at the rectosigmoid junction. There was a small serosal tear just distal to this which was oversewed with 3-0 Vicryl. The proximal position on the sigmoid colon was identified and a reload of the contour stapler was used to transect. The LigaSure was used to take down the mesentery. An NG tube was placed and confirmed in position intraoperatively. The abdomen was irrigated and suctioned. There is approximately 50 cc of blood loss. Hemostasis was noted. A 19 [place] Cr drain was then placed into the pelvis coming out of the right lower quadrant. The colostomy site was identified going through the rectus. Bovie cautery was used to cut a [place] in the skin and a core of fat out of the subcutaneous tissue. The anterior rectus sheath was then opened with electrocautery in a cruciate fashion. Posterior rectus sheath was opened straight. 2 fingers were placed through the colostomy site and the colon was placed through the colostomy site. Care was taken to assure there was no twisting or tension on the colon. 2-0 silk suture was used to sew the drain in place. The midline incision was then closed at the fascia with #1 PDS x2. Skin was closed with saurabh. Colostomy bag and sterile dressings were applied. Patient tolerated procedure well.
[2023-02-26] MEDS: HYDROmorphone 1 mg/mL INJ 1 mL 0.5 MG IVP ×2 (11:20→12:43)
[2023-02-26] MEDS: HYDROmorphone 1 mg/mL INJ 1 mL IVP ×3 (11:25→19:48)
[2023-02-26] MEDS: fentaNYL 50 mcg/mL INJ 2mL 100 MCG IVP (11:30)
[2023-02-26] MEDS: fentaNYL 50 mcg/mL INJ 2mL IVP (12:00)
--- NOTE | 2023-02-26 13:02 | P.CONIM_ITS ---
Providers/Reason For Consult Consulting Physician/Specialty*: Mushtaq Byrd MD, hospitalist Reason for Consult*: Medical management Requesting Physician: Dr. June Attending Physician: Luan June DO Primary Care Provider: Cheyanne Peterson DO History of Present Illness History of Present Illness Elizabeth Hernandez is a 72 year old female who underwent a screening colonoscopy today. Perforation occurred, and she was taken to the OR where Ortiz's procedure was done after sigmoid colectomy. I am seeing the patient in the recovery room. She states she has some abdominal pain. I discussed with her her likely hospital course, pain control, and initiation of substitution of her home medicines as she will be n.p.o. for a while. She denies any current chest pain or shortness of breath. Review of Systems General: Reports: 10 or more systems reviewed and unremarkable except in HPI and below Card: Denies: chest pain Resp: Denies: dyspnea GI: Reports: abdominal pain Medications/Allergies Home Medications Medication Instructions Recorded Confirmed Last Taken Type nitroglycerin 0.4 mg sublingual 0.4 mg sublingual Q5M PRN chest 12/29/19 02/26/23 1 Year Ago Rx tablet (Nitrostat) pain #25 tabs ~02/26/22 pantoprazole 40 mg tablet,delayed 40 mg PO BID PRN Acid Reflux 07/31/21 02/26/23 6 Months Ago History release ~08/26/22 multivitamin 1 tab PO DAILY 11/20/21 02/26/23 2 Months Ago History ~12/27/22 lisinopril 10 mg tablet 10 mg PO BID 90 days #180 tabs 04/19/22 02/26/23 02/25/23 Rx lisinopril 5 mg tablet 5 mg PO BID 90 days #180 tabs 04/19/22 02/26/23 02/25/23 Rx metoprolol succinate 50 mg 50 mg PO DAILY 90 days #90 tabs 04/19/22 02/26/23 02/26/23 04:30 Rx tablet,extended release 24 hr (Toprol XL) simvastatin 20 mg tablet 20 mg PO DAILY #90 tabs 06/12/22 02/26/23 02/25/23 Rx umeclidinium 62.5 mcg-vilanterol 1 inh inhalation DAILY 90 days #60 09/10/22 02/26/23 02/26/23 04:30 Rx 25 mcg/actuation powdr for ea inhalation (Anoro Ellipta) dicyclomine 10 mg capsule 10 mg PO QID PRN Abdominal 01/07/23 02/26/23 02/24/23 Rx Discomfort #360 caps meloxicam 7.5 mg tablet 7.5 mg PO DAILY #90 tabs 01/07/23 02/26/23 02/25/23 Rx rsv vaccine #1 ea 01/07/23 02/26/23 Unknown Rx diphenoxylate-atropine 2.5 1 tab PO BID PRN Diarrhea 02/24/23 02/26/23 02/24/23 History mg-0.025 mg tablet (Lomotil) Allergies Allergy/AdvReac Type Severity Reaction Status Date / Time nitrofurantoin Allergy Unknown Unknown Verified 02/26/23 07:01 [From Macrobid] Penicillins Allergy Unknown Unknown Verified 02/26/23 07:01 Sulfa (Sulfonamide Allergy Unknown Unknown Verified 02/26/23 07:01 Antibiotics) vancomycin Allergy ADR-Itching Verified 02/26/23 07:01 Current Medications Generic Name Dose Route Start Last Admin Trade Name Freq PRN Reason Stop Dose Admin Fentanyl 50 mcg 02/26/23 11:28 02/26/23 12:00 Fentanyl 50 Mcg/Ml Inj 2ml IVP 02/27/23 11:28 50 mcg Q5M PRN Administration Pain level 1-5 PACU Phase I Hydromorphone HCl 0.5 mg 02/26/23 06:52 02/26/23 11:20 Hydromorphone 1 Mg/Ml Inj 1 Ml IVP 0.5 mg ONCE PRN Administration PAIN Hydromorphone HCl 1 mg 02/26/23 11:01 02/26/23 11:25 Hydromorphone 1 Mg/Ml Inj 1 Ml IVP 1 mg Q3H PRN Administration PAIN Hydromorphone HCl 0.5 mg 02/26/23 11:28 02/26/23 12:43 Hydromorphone 1 Mg/Ml Inj 1 Ml IVP 02/27/23 11:28 0.5 mg Q10M PRN Administration Pain level 6-10 PACU Phase I Sodium Chloride 1,000 mls @ 30 mls/hr 02/26/23 07:00 02/26/23 07:19 Sodium Chloride 0.9% IV 02/27/23 06:59 30 mls/hr .Q24H EMILEE Administration PFSH Acute 2 PFSH: Medical History COPD (chronic obstructive pulmonary disease) Dyslipidemia Family history of colon cancer GERD (gastroesophageal reflux disease) HTN (hypertension) Non-small cell lung cancer LINDA (obstructive sleep apnea) Compliant with CPAP Thoracic aortic aneurysm Surgical History Hx of colonoscopy S/P shoulder surgery scope on the left S/P subtotal thyroidectomy (~1984) Left S/P thoracotomy (11/06/21) Thoracotomy with right upper lobe posterior segmentectomy Family History Mother Cancer Ovarian CA Hypertension Father Cancer Colon CA Brother Myocardial infarction CAD (coronary artery disease) Alcoholism Other Diabetes Denies family history of Clotting disorder Dementia Hyperlipidemia Psychiatric illness Chronic kidney disease (CKD) Suicide Anesthesia complication Bleeding disorder Lung disease Stroke Social History Smoking and tobacco/nicotine status: former use of tobacco/nicotine Quit status (tobacco/nicotine): has quit using Year quit tobacco: 2015 Former quit date comment: 1ppd X 46 years, started at age 19 Alcohol intake: current Alcohol intake frequency: holidays/special occasions only Vitals/I&O/Wt Last Vital Signs Temp 97 F L 02/26/23 10:58 Pulse 82 02/26/23 12:31 Resp 16 02/26/23 12:43 BP 129/77 02/26/23 12:31 Pulse Ox 95 02/26/23 12:43 O2 Del Method Nasal Cannula 02/26/23 12:31 O2 Flow Rate 5 02/26/23 12:31 02/25/23 02/26/23 02/26/23 22:59 06:59 14:59 Intake Total 750 / 750 Output Total 200 / 200 Balance 550 / 550 Weight last 48 hrs Weight 86.183 kg Physical Exam Narrative: General exam is a white female, conversant and aware HEENT: Pupils equally round. Oropharynx appears clear Neck is supple Cardiovascular regular rate and rhythm, no murmur Lungs clear Abdomen demonstrates ostomy, with a little bit of serosanguineous drainage into the bag. Hypoactive bowel sounds. exam was deferred, Adkins noted Extremities no cyanosis clubbing or edema Skin no obvious rash Neuro no obvious focal deficits. Urinary Catheter Management: Adkins Latex: Cath Placed During This Visit: yes Urinary Catheter Date of Insertion: 02/26/23 Urinary Catheter Time of Insertion: 08:58 Data Other Labs: I have ordered a CBC, CMP A&P Assessment and plan (1) Perforation of sigmoid colon: Patient underwent screening colonoscopy this morning. Perforation of sigmoid colon with exam. She underwent sigmoid colectomy, colostomy formation. She appears stable currently. She is n.p.o. for surgery. Check baseline CBC and CMP (2) COPD (chronic obstructive pulmonary disease): Budesonide twice daily DuoNeb every 6 hours (3) HTN (hypertension): For now, initiate metoprolol 5 mg IV every 6 hours to prevent any beta-abi withdrawal. Hydralazine as needed. Consider restarting p.o. meds perhaps tomorrow. Qualifiers: Hypertension type: essential hypertension Qualified Code(s): I10 - Essential (primary) hypertension (4) GERD (gastroesophageal reflux disease): Patient with history of GERD Protonix 40 mg IV every 24 hours Qualifiers: Esophagitis presence: esophagitis presence not specified Qualified Code(s): K21.9 - Gastro-esophageal reflux disease without esophagitis Plan Other medical problems as noted in her past medical history Heparin for DVT prophylaxis Thank you for this consultation, we will continue to follow along with you. Consult Attestations Medical Necessity Statement: As per primary Diagnoses Perforation of sigmoid colon K63.1 COPD (chronic obstructive pulmonary disease) J44.9 HTN (hypertension) I10 Hypertension type: essential hypertension GERD (gastroesophageal reflux disease) K21.9 Esophagitis presence: esophagitis presence not specified Time Spent (min) 40
[2023-02-26 15:26] LABS: Basophils % 0.2 %; Hematocrit 43.4 % (36-47); Lymphocytes # 0.4 10^3/uL (0.8-4.8); Lymphocytes % 2.5 %; Mean Corpuscular HGB Conc 31.8 g/dL (30-55); Mean Corpuscular Hemoglobin 30.3 pg (27-33); Mean Corpuscular Volume 95.4 fl (85-98); Mean Platelet Volume 9.8 fL (7.4-10.4); Monocytes # 1.1 10^3/uL (0.2-0.9); Neutrophils # 16.05 10^3/uL (1.8-7.7); Neutrophils % 90.9 %; Nucleated Red Blood Cells % 0 %; Platelet Count 304 10^3/cmm (157-399); Red Blood Count 4.55 10^6/uL (3.85-5.65); Red Cell Distribution Width 13.2 % (12.1-15.1); White Blood Count 17.66 10^3/uL (3.29-11.43)
[2023-02-26 15:45] LABS: Alanine Aminotransferase 34 U/L (0-33); Albumin Level 3.9 g/dL (3.5-5.2); Alkaline Phosphatase 46 U/L (35-105); Anion Gap 14.5 (5-19); Aspartate Amino Transferase 32 U/L (0-32); Blood Urea Nitrogen 19 mg/dL (8-23); Calcium 8.4 mg/dL (8.5-10.5); Carbon Dioxide 19 mmol/L (22-29); Chloride 111 mmol/L (98-107); Glomerular Filtration Rate 54.8 mL/min (90-130); Glucose 149 mg/dL (65-115); Osmolality Calculated 295 mOsm/kg (285-295); Potassium 4.5 mmol/L (3.5-5.1); Sodium 140 mmol/L (136-145); Total Bilirubin 0.5 mg/dL (0.15-1.2); Total Protein 6.9 g/dL (6.6-8.7)
[2023-02-26 15:49] LABS: Creatinine Clr Calc Pharmacy 57.8912
[2023-02-26] MEDS: D5-NS 0.45% + KCL 20 mEq 20 MEQ/1,000 ML BAG 125 MEQ IV (16:27)
[2023-02-26] MEDS: pantoprazole 40 mg SDV IVP (16:28)
[2023-02-26] MEDS: metoprolol tartrate 1 mg/1 mL SDV 5 mL 5 MG IVP ×2 (16:29→21:32)
--- NOTE | 2023-02-26 16:40 | ANE.PACU2 ---
Inpatient post-anesthesia follow up: Airway intact: Yes Vital signs: Temperature 97 F Pulse Rate 82 Respiratory Rate 21 Blood Pressure 129/77 Pulse Oximetry 93 Oxygen Delivery Me thod Nasal Cannula Oxygen Flow Rate 5 Fraction of Inspir ed Oxygen Hydration adequate: Yes Nausea and vomiting: No Pain level: 4 Mental status: Baseline
[2023-02-26] MEDS: heparin 5,000 unit/mL INJ 1 mL 5000 UNIT SUBCUT (16:46)
--- OUTSIDE RECORDS SUMMARY | 2023-02-26 18:11 | XMS_ITS | Patient Health Record ---
Author Name Unknown Organization [facility] Address [address] [place] [address] Care Team Providers [facility] Director Name Role Phone Ayala Cannon Primary Care Provider Champ Mccarty [phone] ALLERGIES Allergen (clinical drug ingredient) Drug/Non Drug Allergy documented on EMR Reaction Allergy Type Onset Date Status nitrofurantoin, macrocrystals / nitrofurantoin, monohydrate Macrobid fever, chills Drug Allergy Active Penicillin stomach upset Drug Allergy Ac tive Substance with sulfonamide structure and antibacterial mechanism of action (substance) Sulfa Antibiotics Unknown Drug Allergy Active REASON FOR REFERRAL No Information MEDICATIONS Medication SIG (Take, Route, Frequency, Duration) Notes Start Date End Date Status Spiriva HandiHaler 18 MCG INHALE THE CON TENTS OF 1 CAPSULE BY INHALER DEVICE DAILY THROUGH INHALER Active Nitroglycerin 0.4 MG as directed Sublingual Active Pantoprazole Sodium 40 MG 1 tablet Orall y Once a day Active Toprol XL 50 MG 1 tablet Orally Once a day Active Simvastatin 20 MG 1 tablet in the even ing Orally Once a day Active Isosorbide Mononitrate ER 30 MG 1/2 tablet in the morning Orally twice a day Active Anoro Ellipta 62.5-25 MCG/INH 1 puff Inhalation Once a day Dr. Bloom Active Lisinopril 5 MG 1 tablet in addition to 10mg tab Orally Twice daily for 90 days 11/30/2020 Active IMMUNIZATIONS Vaccine Route Administration Date Status Comme nts COVID-19 Vaccine (Pfizer) Dose #1 Unknown 05/19/2020 Ad ministered COVID-19 Vaccine (Pfizer) Dose #2 Unknown 06/16/2020 Ad ministered SOCIAL HISTORY Tobacco Use: Social History Observation Description Date Details (start date - stop date) Former Smoker NA - NA Sex Assigned At : Social History Observation Description Sex Assigned At Unknown Tobacco Use/Smoking Question Answer Notes Are you a former smoker How long has it been since y ou last smoked? 1-5 years Additional Findings: Tobacco User Modera te cigarette smoker (10-19 cigs/day) Additional Findings: Tobacco Non-User Ex -moderate cigarette smoker (10-19/day) Alcohol Screen (Audit-C) Question Answer Notes Did you have a drink contain ing alcohol in the past year? Yes How often did you have a dri nk containing alcohol in the past year? Monthly or less (1 point) How many drinks did you have on a typical day when you were drinking in the past year? 1 or 2 drinks (0 point) How often did you have 6 or more drinks on one occasion in the past year? Never (0 point) Points 1 Interpretation Negative PHQ-9 Question Answer Notes Little interest or pleasure in doing things Not at all Feeling down, depressed, or hopeless Not at all Trouble falling or staying asleep, or sleeping t oo much Not at all Feeling tired or having little energy Not at all Poor appetite or overeating Not at all Feeling bad about yourself, or that you are a failure, or have let yourself or your family down Not at all Trouble concentrating on thi ngs, such as reading the newspaper or watching television Not at all Moving or speaking so slowly that other people could have noticed. Or the opposite ? being so fidgety or restless that you have been moving around a lot more than usual Not at all Thoughts that you would be b zane off , or of hurting yourself in some way Not at all Total Score 0 PROBLEMS Problem Type ICD Code Onset Dates Problem Status W/U Status Risk SNOMED Code Notes Problem Seborrheic keratosis, other (702.19) 2014 Problem resolved confirmed Seborrheic keratosis (322658562) [facility] [place] [facility]- Problem Screening for breast cancer, unspecified (V76.10) 2017 Problem resolved confirmed Screening for malignant neoplasm of breast (089074143) [facility] [place] [facility]- Problem Closed rib fracture, unspecified (807.00) 2014 Problem resolved confirmed Closed fracture of rib (20888702) [facility] [place] [facility]- Problem Ascending Aortic aneurysm (441.9) 2014 Problem resolved confirmed Aortic aneurysm (21909953) [facility] [place] External cerumen impaction (380.4) 2017 Problem resolved confirmed Impacted cerumen (38728496) [facility] [place] [facility]- Problem Essential hypertension (401.1) 2012 Problem resolved confirmed Essential hypertension (20321021) [facility] [place] Problem Aortic aneurysm (441.9) 2016 Problem resolved confirmed Aortic aneurysm (24438595) [facility] [place] [facility]- Problem Acute lobar pneumonia (481) 2014 Problem resolved confirmed Pneumococcal pneumonia (692793636) [facility] [place] Problem Urinary tract infection (595.0) 2013 Problem resolved confirmed Urinary tract infection (34250406) [facility] [place] [facility]- Problem IBS (564.1) 2015 Problem resolved confirmed Irritable bowel syndrome (20879145) [facility] [place] [facility]- Problem Cerumen impaction (380.4) 2018 Problem resolved confirmed Impacted cerumen (76551642) [facility] [place] [facility]- Problem Tobacco abuse affecting health (305.1) 2014 Problem resolved confirmed Tobacco user (747508433) [facility] [place] [facility]- Problem SVT (427.0) 2014 Problem resolved confirmed Supraventricular tachycardia (8520988) [facility] [place] [facility]- Problem Sleep apnea, NEC (780.57) 2012 Problem resolved confirmed Sleep apnea (41310987) [facility] [place] [facility]- Problem Familial hypercholesterolemia (272.0) 2018 Problem resolved confirmed Familial hypercholesterolemia (333571305) [facility] [place] [facility]- Problem Family history of ovarian cancer (V16.41) 2018 Problem resolved confirmed Family history of malignant neoplasm of ovary (019622306) [facility] [place] [facility]- Problem Lung nodule (518.89) 2015 Problem resolved confirmed Solitary nodule of lung (842360310) [facility] [place] [place] Lab: Used to match unlinked laboratory orders (V92) 2013 Problem resolved confirmed [facility] Problem 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 Problem resolved confirmed Suly's thyroiditis (44295777) [facility] [place] Problem Chest pain (786.51) 2016 Problem resolved confirmed Chest pain (99050774) [facility] [place] Problem Screening for cardiovascular conditions (V81.2) 2014 Problem resolved confirmed [facility] [place] Problem Screening for breast cancer (V76.10) 2012 Problem resolved confirmed Screening for breast cancer (576669215) [facility] [place] Problem Screening for cancer of colon (V76.51) 2017 Problem resolved confirmed Screening for malignant neoplasm of colon (559352648) [facility] [place] Problem Mouth sore (528.9) 2017 Problem resolved confirmed Sore mouth (946651161) [facility] [place] Problem Sleep apnea (780.57) 2017 Problem resolved confirmed Sleep apnea (56603637) [facility] [place] Problem Routine gynecological examination (V72.31) 2013 Problem resolved confirmed Gynecological examination normal (309051609311680) [facility] [place] Problem Abnormal glandular Papanicolaou smear of vagina (795.10) 2014 Problem resolved confirmed Atypical glandular cells on vaginal Papanicolaou smear (832649624) [facility] [place] Problem Diarrhea (787.91) 2013 Problem resolved confirmed Diarrhea (39778809) [facility] Problem Cough (786.2) 2014 Problem resolved confirmed Cough (80464131) [facility] Problem Obstructive sleep apnea (adult) (pediatric) (327.23) 2018 Problem resolved confirmed Obstructive sleep apnea syndrome (58586178) [facility] [place] Problem Other specified disorders of thyroid (246.8) 2012 Problem resolved confirmed Thyroid disorder (17317189) [facility] Problem GERD (530.81) 2016 Active confirmed Gastroesophageal reflux disease (548607536) [facility] Problem Irritable bowel syndrome (564.1) 2015 Active confirmed Irritable bowel syndrome (86457116) [facility] Problem Irritable bowel syndrome with diarrhea (K58.0) Active confirmed [id number] PLAN OF TREATMENT No Information Insurance Providers Payer Name Payer Address Payer Phone Subscriber Number Group Number Insured Name Patient Relationship to Insured Coverage Start Date Coverage End Date [place] [address] [address] [place] [address] [id number] Elizabeth Sosa Self - patient is the insured 8 for Life Secondary to Medicare [address] [place] [address] [id number] Elizabeth Sosa Self - patient is the insured 3 MEDICAL (GENERAL) HISTORY Medical History History ICD Code Ascending Aortic Aneurysm Essential hypertension Familial hyoerchlesterolemia Family history of ovarian cancer GERD Irritable Bowel Syndrome Lung Nodule Obstructive sleep apnea SVT Surgical History Surgery Date(Month/Year) Thyroidectomy; cold nodules 1984 Arthroscopy, left shoulder 2006 Fracture repair, left digit 1960
--- NOTE | 2023-02-26 18:28 | PC.NURSE ---
REceived patient from Surgery staff at approximately 1330. Patient is alert and oriented to person, place, time, and situation. BP: 139/78, HR: 81, SO2: 93, Temp: 97.1. 100mL of serosanguinous fluid emptied form YANNICK drain. Colostomy is pink, scan amount of bloody drainage in colostomy bag.
--- NOTE | 2023-02-26 18:30 | PC.NURSE ---
Shift SUmmary: uneventful shift .Patient's vital shave been within normal limits since arrival in ICU, needed PRN dose of dilaudid upon arrival but no pain medication required since. Occaisonal bouts of severe pain which subside within a few seconds and patient reports pain is tolerable without medications.
[2023-02-26] MEDS: ipratropium-albuterol 3 mL Neb INHALATION (19:44)
[2023-02-26] MEDS: budesonide 0.5 mg/2 mL Neb INHALATION (19:44)
[2023-02-27] VITALS (85 sets, daily range): BP systolic 109–163; BP diastolic 63–106; PULSE 67–97; RESP 13–93; TEMP 36.6–37.3; O2SAT 90–96
[2023-02-27] MEDS: D5-NS 0.45% + KCL 20 mEq 20 MEQ/1,000 ML BAG 125 MEQ IV ×3 (00:58→20:04)
[2023-02-27] MEDS: HYDROmorphone 1 mg/mL INJ 1 mL IVP ×4 (01:02→16:48)
[2023-02-27] MEDS: heparin 5,000 unit/mL INJ 1 mL 5000 UNIT SUBCUT ×3 (01:03→17:08)
[2023-02-27] MEDS: metoprolol tartrate 1 mg/1 mL SDV 5 mL 5 MG IVP (02:28)
[2023-02-27] MEDS: metroNIDAZOLE IV 500 MG/100 ML PREMIX 100 MG IV ×4 (02:29→20:04)
[2023-02-27] MEDS: ipratropium-albuterol 3 mL Neb INHALATION ×4 (02:30→20:24)
[2023-02-27 05:27] LABS: Basophils % 0.1 %; Lymphocytes # 1.5 10^3/uL (0.8-4.8); Lymphocytes % 10.8 %; Mean Corpuscular HGB Conc 31.5 g/dL (30-55); Mean Corpuscular Hemoglobin 29.9 pg (27-33); Monocytes # 0.9 10^3/uL (0.2-0.9); Monocytes % 6.5 %; Neutrophils # 11.57 10^3/uL (1.8-7.7); Neutrophils % 82.3 %; Nucleated Red Blood Cells % 0 %; Platelet Count 242 10^3/cmm (157-399); Red Blood Count 4.21 10^6/uL (3.85-5.65); Red Cell Distribution Width 13.5 % (12.1-15.1); White Blood Count 14.06 10^3/uL (3.29-11.43)
[2023-02-27 05:44] LABS: Anion Gap 12.6 (5-19); Blood Urea Nitrogen 14 mg/dL (8-23); Carbon Dioxide 21 mmol/L (22-29); Chloride 110 mmol/L (98-107); Glomerular Filtration Rate 54.8 mL/min (90-130); Glucose 142 mg/dL (65-115); Osmolality Calculated 291 mOsm/kg (285-295); Potassium 4.6 mmol/L (3.5-5.1); Sodium 139 mmol/L (136-145)
[2023-02-27 05:45] LABS: Creatinine Clr Calc Pharmacy 57.8912
--- NOTE | 2023-02-27 08:08 | PM.PN ---
Subjective Subjective: Patient seen and examined. Having some abdominal pain but it is controlled. No nausea or vomiting. Vitals/I&O/Wt Last Vital Signs Temp 99.2 F 02/27/23 00:55 Pulse 76 02/27/23 04:10 Resp 22 H 02/27/23 05:22 BP 126/79 02/27/23 04:10 Pulse Ox 93 02/27/23 04:10 O2 Del Method Room Air 02/27/23 02:30 O2 Flow Rate 2 02/26/23 23:18 02/26/23 02/27/23 02/27/23 22:59 06:59 14:59 Intake Total 200 / 950 1000 / 1950 Output Total 200 / 400 550 / 950 105 / 105 Balance 0 / 550 450 / 1000 -105 / -105 Weight last 48 hrs Weight 190 lb Physical Exam Narrative: General: No acute distress, awake alert and oriented x3 Abdomen: Soft, mild distention, appropriately tender to palpation, no guarding rebound or mass Ostomy pink and patent, no production yet Drain serosanguineous Dressings clean dry and intact Urinary Catheter Management: Adkins Latex: Cath Placed During This Visit: yes Reason for Continuing Indwelling Catheter: Accurate Measurement of Urinary Output in Critically Ill Patients Urinary Catheter Date of Insertion: 02/26/23 Urinary Catheter Time of Insertion: 08:58 Data 02/27/23 05:13 02/27/23 05:13 A&P Assessment and plan (1) Perforation of sigmoid colon: (2) Family history of colon cancer: Plan Transferred to medical surgical floor Continue antibiotics Incentive spirometer Await return of bowel function Appreciate hospitalist input Attestations Medical Necessity Statement*: Patient requires at least 1 more night in the hospital for recovery and return of bowel function after sigmoidectomy Coding Level of Care Code Acute Code for Chg Fwd Diagnoses Perforation of sigmoid colon K63.1 Family history of colon cancer Z80.0
[2023-02-27] MEDS: cefTRIAXone 1,000 MG in sodium chloride 0.9% (plus) 50 ML 100 MG IV (08:11)
[2023-02-27] MEDS: metoprolol tartrate 25 mg Tablet PO ×2 (08:11→20:04)
--- NOTE | 2023-02-27 08:14 | P.PN_ITS ---
Subjective Subjective: Elizabeth reports her abdomen feels a little bit better today. No shortness of breath. Medications: Reviewed: Yes Vitals/I&O/Wt Last Vital Signs Temp 99.2 F 02/27/23 00:55 Pulse 76 02/27/23 04:10 Resp 22 H 02/27/23 05:22 BP 126/79 02/27/23 04:10 Pulse Ox 93 02/27/23 04:10 O2 Del Method Room Air 02/27/23 02:30 O2 Flow Rate 2 02/26/23 23:18 02/26/23 02/27/23 02/27/23 22:59 06:59 14:59 Intake Total 200 / 950 1100 / 0 Output Total 200 / 400 550 / 950 105 / 105 Balance 0 / 550 550 / 1100 -105 / -105 Weight last 48 hrs Weight 86.183 kg Physical Exam Narrative: General exam is a white female, no distress Neck is supple Cardiovascular regular rate and rhythm, no murmur Lungs clear Abdomen demonstrates ostomy, with a little bit of serosanguineous drainage into the bag. Hypoactive bowel sounds. Ostomy is pink and appears viable exam was deferred, Adkins noted Extremities no cyanosis clubbing or edema Urinary Catheter Management: Adkins Latex: Cath Placed During This Visit: yes Reason for Continuing Indwelling Catheter: Accurate Measurement of Urinary Output in Critically Ill Patients Urinary Catheter Date of Insertion: 02/26/23 Urinary Catheter Time of Insertion: 08:58 Data 02/27/23 05:13 02/27/23 05:13 A&P Assessment and plan (1) Perforation of sigmoid colon: Postoperative day #1 status post perforation of sigmoid colon, sigmoid colectomy and colostomy formation Currently stable Laboratory reviewed, no concerns Continue Rocephin and Flagyl CBC and CMP tomorrow. Continue IV fluids Discontinue IV metoprolol, changed to oral metoprolol with clamping NG with dose (2) COPD (chronic obstructive pulmonary disease): Budesonide twice daily DuoNeb every 6 hours (3) HTN (hypertension): Initiate oral metoprolol Hold lisinopril currently, and reevaluate need tomorrow l. Hydralazine as needed. Qualifiers: Hypertension type: essential hypertension Qualified Code(s): I10 - Essential (primary) hypertension (4) GERD (gastroesophageal reflux disease): Patient with history of GERD Continue Protonix 40 mg IV every 24 hours Qualifiers: Esophagitis presence: esophagitis presence not specified Qualified Co de(s): K21.9 - Gastro-esophageal reflux disease without esophagitis Plan Other medical problems as noted in her past medical history Heparin for DVT prophylaxis Thank you for this consultation, we will continue to follow along with you. Attestations Medical Necessity Statement*: As per primary Diagnoses Perforation of sigmoid colon K63.1 COPD (chronic obstructive pulmonary disease) J44.9 HTN (hypertension) I10 Hypertension type: essential hypertension GERD (gastroesophageal reflux disease) K21.9 Esophagitis presence: esophagitis presence not specified Time Spent (min) 21
[2023-02-27] MEDS: budesonide 0.5 mg/2 mL Neb INHALATION ×2 (09:39→20:24)
[2023-02-27] MEDS: pantoprazole 40 mg SDV IVP (13:56)
[2023-02-27] MEDS: ketorolac 30 mg/mL INJ 15 MG IVP (20:03)
[2023-02-28] VITALS (13 sets, daily range): BP systolic 145–162; BP diastolic 70–97; PULSE 65–95; RESP 16–18; TEMP 36.4–37; O2SAT 93–98
[2023-02-28] MEDS: heparin 5,000 unit/mL INJ 1 mL 5000 UNIT SUBCUT ×3 (01:42→16:04)
[2023-02-28] MEDS: ketorolac 30 mg/mL INJ 15 MG IVP ×4 (01:42→19:54)
[2023-02-28] MEDS: metroNIDAZOLE IV 500 MG/100 ML PREMIX 100 MG IV ×4 (01:43→19:54)
--- NOTE | 2023-02-28 04:30 | PC.NURSE ---
Patient only had 100 ml out in her dover this shift. Bladder scan showed [address] Mendenhall notified.
[2023-02-28] MEDS: HYDROmorphone 1 mg/mL INJ 1 mL IVP ×3 (04:35→19:54)
[2023-02-28 06:51] LABS: Basophils # 0.1 10^3/uL (0.0-0.1); Basophils % 0.5 %; Eosinophils # 0.2 10^3/uL (0.0-0.8); Eosinophils % 2.1 %; Hematocrit 39.1 % (36-47); Lymphocytes # 1.6 10^3/uL (0.8-4.8); Lymphocytes % 16.2 %; Mean Corpuscular HGB Conc 31.7 g/dL (30-55); Mean Corpuscular Volume 94.4 fl (85-98); Mean Platelet Volume 10.1 fL (7.4-10.4); Monocytes # 0.5 10^3/uL (0.2-0.9); Monocytes % 5.2 %; Neutrophils # 7.63 10^3/uL (1.8-7.7); Neutrophils % 75.6 %; Nucleated Red Blood Cells % 0 %; Platelet Count 245 10^3/cmm (157-399); Red Blood Count 4.14 10^6/uL (3.85-5.65); Red Cell Distribution Width 13.3 % (12.1-15.1)
[2023-02-28 07:12] LABS: Anion Gap 13.9 (5-19); Blood Urea Nitrogen 11 mg/dL (8-23); Calcium 8.1 mg/dL (8.5-10.5); Carbon Dioxide 18 mmol/L (22-29); Chloride 109 mmol/L (98-107); Glomerular Filtration Rate 61.9 mL/min (90-130); Glucose 119 mg/dL (65-115); Magnesium 1.8 mg/dL (1.7-2.3); Osmolality Calculated 285 mOsm/kg (285-295); Potassium 3.9 mmol/L (3.5-5.1); Sodium 137 mmol/L (136-145)
[2023-02-28] MEDS: budesonide 0.5 mg/2 mL Neb INHALATION ×2 (08:33→20:24)
[2023-02-28] MEDS: ipratropium-albuterol 3 mL Neb INHALATION ×3 (08:33→20:24)
[2023-02-28] MEDS: cefTRIAXone 1,000 MG in sodium chloride 0.9% (plus) 50 ML 100 MG IV (08:57)
[2023-02-28] MEDS: metoprolol tartrate 25 mg Tablet PO ×2 (09:00→19:54)
[2023-02-28] MEDS: D5-NS 0.45% + KCL 20 mEq 20 MEQ/1,000 ML BAG 125 MEQ IV ×2 (09:04→19:55)
--- NOTE | 2023-02-28 10:58 | PM.PN ---
Subjective Subjective: No issues this morning. Feeling better. Not yet hungry. Medications: Reviewed: Yes Vitals/I&O/Wt Last Vital Signs Temp 97.7 F 02/28/23 08:00 Pulse 65 02/28/23 08:34 Resp 16 02/28/23 08:34 BP 145/85 02/28/23 08:00 Pulse Ox 98 02/28/23 08:34 O2 Del Method Room Air 02/28/23 08:34 O2 Flow Rate 2 02/26/23 23:18 02/27/23 02/28/23 02/28/23 22:59 06:59 14:59 Intake Total 1016.667 / 2166.667 100 / 2266.667 1050 / 1050 Output Total 300 / 405 200 / 605 Balance 716.667 / 1761.667 -100 / 3579.626 5406 / 1050 Physical Exam Narrative: General exam no distress Neck is supple Cardiovascular regular rate and rhythm, no murmur Lungs clear Abdomen demonstrates ostomy, with a little bit of serosanguineous drainage into the bag. A few bowel sounds noted. Ostomy is pink and appears viable exam was deferred, Adkins noted Extremities no cyanosis clubbing or edema Urinary Catheter Management: Adkins Latex: Cath Placed During This Visit: yes Reason for Continuing Indwelling Catheter: Other Urinary Catheter Date of Insertion: 02/26/23 Urinary Catheter Time of Insertion: 08:58 Data 02/28/23 05:44 02/28/23 05:44 A&P Assessment and plan (1) Perforation of sigmoid colon: Postoperative day #2 status post perforation of sigmoid colon, sigmoid colectomy and colostomy formation Currently stable Laboratory reviewed, no concerns Continue Rocephin and Flagyl CBC and CMP tomorrow. Continue IV fluids Encouraged her to be ambulating, up in a chair, incentive spirometry (2) COPD (chronic obstructive pulmonary disease): Budesonide twice daily DuoNeb every 6 hours (3) HTN (hypertension): Add lisinopril Qualifiers: Hypertension type: essential hypertension Qualified Code(s): I10 - Essential (primary) hypertension (4) GERD (gastroesophageal reflux disease): Patient with history of GERD Continue Protonix 40 mg IV every 24 hours Qualifiers: Esophagitis presence: esophagitis presence not specified Qualified Code(s): K21.9 - Gastro-esophageal reflux disease without esophagitis Plan Other medical problems as noted in her past medical history Heparin for DVT prophylaxis Thank you for this consultation, we will continue to follow along with you. Attestations Medical Necessity Statement*: As per primary Diagnoses Perforation of sigmoid colon K63.1 COPD (chronic obstructive pulmonary disease) J44.9 HTN (hypertension) I10 Hypertension type: essential hypertension GERD (gastroesophageal reflux disease) K21.9 Esophagitis presence: esophagitis presence not specified Time Spent (min) 27
[2023-02-28] MEDS: pantoprazole 40 mg SDV IVP (11:17)
--- NOTE | 2023-02-28 11:44 | P.PN_ITS ---
Subjective Subjective: Patient seen and examined. Pain controlled Vitals/I&O/Wt Last Vital Signs Temp 97.7 F 02/28/23 08:00 Pulse 65 02/28/23 08:34 Resp 16 02/28/23 08:34 BP 145/85 02/28/23 08:00 Pulse Ox 98 02/28/23 08:34 O2 Del Method Room Air 02/28/23 08:34 O2 Flow Rate 2 02/26/23 23:18 02/27/23 02/28/23 02/28/23 22:59 06:59 14:59 Intake Total 1016.667 / 2166.667 100 / 2266.667 1150 / 1150 Output Total 300 / 405 200 / 605 140 / 140 Balance 716.667 / 1761.667 -100 / 9451.829 7979 / 1010 Physical Exam 2 Narrative: General: No acute distress, awake alert and oriented x3 Abdomen: Soft, mild distention, appropriately tender to palpation, no guarding rebound or mass Ostomy pink and patent, no production yet Drain serosanguineous Incision intact without erythema or exudate Urinary Catheter Management: Adkins Latex: Cath Placed During This Visit: yes Reason for Continuing Indwelling Catheter: Other Urinary Catheter Date of Insertion: 02/26/23 Urinary Catheter Time of Insertion: 08:58 Data 02/28/23 05:44 02/28/23 05:44 A&P Assessment and plan (1) Perforation of sigmoid colon: (2) Family history of colon cancer: Plan Bolus half liter of normal saline or low urine output DC Akdins Out of bed to chair 3 times daily PT eval and treat Await return of bowel function Appreciate hospitalist input Attestations Medical Necessity Statement*: Patient requires at least 1 more night in the hospital for return of bowel function after meds procedure Coding Level of Care Code Acute Code for Chg Fwd Diagnoses Perforation of sigmoid colon K63.1 Family history of colon cancer Z80.0
--- NOTE | 2023-02-28 12:15 | PC.SOCIAL ---
Pg 2 IMM Explained to pt Pg 2 IMM. No questions voiced. Provided pt a copy. Initialed, dated, & timed a copy & placed in chart.
[2023-02-28] MEDS: sodium chloride 0.9% 500 ML 999 ML IV (13:16)
[2023-03-01] VITALS (15 sets, daily range): BP systolic 142–173; BP diastolic 75–103; PULSE 70–84; RESP 16–18; TEMP 36.2–37; O2SAT 92–95
[2023-03-01] MEDS: heparin 5,000 unit/mL INJ 1 mL 5000 UNIT SUBCUT ×3 (02:02→16:35)
[2023-03-01] MEDS: HYDROmorphone 1 mg/mL INJ 1 mL IVP (02:02)
[2023-03-01] MEDS: ketorolac 30 mg/mL INJ 15 MG IVP ×4 (02:02→22:00)
[2023-03-01] MEDS: metroNIDAZOLE IV 500 MG/100 ML PREMIX 100 MG IV ×4 (02:03→22:01)
[2023-03-01] MEDS: ipratropium-albuterol 3 mL Neb INHALATION ×4 (03:16→19:43)
--- NOTE | 2023-03-01 04:54 | PC.NURSE ---
No urine in dover throughout shift. Bladder scan done and showed 500 ml. Repositioned dover to attempt to get it to drain. No kinks noted. Dover only drained approximately 10-20 ml of urine. Dover removed and replaced with new one. 875 ml dark elieser urine drained.
[2023-03-01 05:29] LABS: Basophils # 0.1 10^3/uL (0.0-0.1); Basophils % 0.6 %; Eosinophils # 0.4 10^3/uL (0.0-0.8); Eosinophils % 4.7 %; Hematocrit 40.7 % (36-47); Lymphocytes # 1.4 10^3/uL (0.8-4.8); Lymphocytes % 16.2 %; Mean Corpuscular HGB Conc 31.4 g/dL (30-55); Mean Corpuscular Hemoglobin 29.8 pg (27-33); Mean Corpuscular Volume 94.7 fl (85-98); Monocytes # 0.4 10^3/uL (0.2-0.9); Neutrophils % 73.3 %; Nucleated Red Blood Cells % 0 %; Platelet Count 231 10^3/cmm (157-399); Red Cell Distribution Width 13.2 % (12.1-15.1); White Blood Count 8.59 10^3/uL (3.29-11.43)
[2023-03-01 05:55] LABS: Anion Gap 13.1 (5-19); Blood Urea Nitrogen 11 mg/dL (8-23); Calcium 8.1 mg/dL (8.5-10.5); Carbon Dioxide 18 mmol/L (22-29); Chloride 109 mmol/L (98-107); Glomerular Filtration Rate 70.9 mL/min (90-130); Glucose 123 mg/dL (65-115); Magnesium 1.8 mg/dL (1.7-2.3); Osmolality Calculated 283 mOsm/kg (285-295); Potassium 4.1 mmol/L (3.5-5.1); Sodium 136 mmol/L (136-145)
[2023-03-01] MEDS: budesonide 0.5 mg/2 mL Neb INHALATION ×2 (08:12→19:43)
[2023-03-01] MEDS: metoprolol tartrate 25 mg Tablet PO ×2 (09:24→21:59)
[2023-03-01] MEDS: lisinopril 10 mg Tablet PO (09:24)
[2023-03-01] MEDS: cefTRIAXone 1,000 MG in sodium chloride 0.9% (plus) 50 ML 100 MG IV (10:07)
--- NOTE | 2023-03-01 11:34 | PM.PN ---
Subjective Subjective: Patient seen and examined. Pain controlled. Still no flatus in ostomy bag Vitals/I&O/Wt Last Vital Signs Temp 97.5 F L 03/01/23 08:00 Pulse 70 03/01/23 08:12 Resp 18 03/01/23 08:12 BP 166/101 03/01/23 08:00 Pulse Ox 93 03/01/23 08:12 O2 Del Method Room Air 03/01/23 08:12 O2 Flow Rate 2 02/26/23 23:18 02/28/23 03/01/23 03/01/23 22:59 06:59 14:59 Intake Total 1700 / 2850 125 / 2975 Output Total 335 / 475 1375 / 1850 Balance 1365 / 2375 -1250 / 1125 Physical Exam Narrative: General: No acute distress, awake alert and oriented x3 Abdomen: Soft, mild distention, appropriately tender to palpation, no guarding rebound or mass Ostomy pink and patent, no production yet Drain serosanguineous Incision intact without erythema or exudate Urinary Catheter Management: Adkins Latex: Cath Placed During This Visit: yes Reason for Continuing Indwelling Catheter: Other Urinary Catheter Date of Insertion: 02/26/23 Urinary Catheter Time of Insertion: 08:58 Data 03/01/23 05:08 03/01/23 05:08 A&P Assessment and plan (1) Perforation of sigmoid colon: (2) Family history of colon cancer: Plan Bolus half liter of normal saline or low urine output DC Adkins Out of bed to chair 3 times daily Ambulate in halls PT eval and treat Await return of bowel function Appreciate hospitalist input Attestations Medical Necessity Statement*: Patient requires at least 1 more night in the hospital for return of bowel function after Ortiz's procedure Coding Level of Care Code Acute Code for Chg Fwd Diagnoses Perforation of sigmoid colon K63.1 Family history of colon cancer Z80.0
[2023-03-01] MEDS: D5-NS 0.45% + KCL 20 mEq 20 MEQ/1,000 ML BAG 125 MEQ IV (14:33)
--- NOTE | 2023-03-01 14:41 | P.PN_ITS ---
Subjective Subjective: Seen today. Burping but not passing gas yet. No gas in the colostomy bag yet either. NG tube in place. She states she has had no history of past and knows how it goes. She is awaiting return of bowel function. Does not offer any complaints right now. Vitals/I&O/Wt Last Vital Signs Temp 98.2 F 03/01/23 12:00 Pulse 83 03/01/23 12:00 Resp 18 03/01/23 12:00 BP 173/102 03/01/23 12:00 Pulse Ox 94 03/01/23 12:00 O2 Del Method Room Air 03/01/23 08:12 O2 Flow Rate 2 02/26/23 23:18 02/28/23 03/01/23 03/01/23 22:59 06:59 14:59 Intake Total 1700 / 2850 125 / 2975 1075 / 1075 Output Total 335 / 475 1375 / 1850 Balance 1365 / 2375 -1250 / 1125 1075 / 1075 Physical Exam Narrative: General: No acute distress, awake alert and oriented x3 Abdomen: Soft, mild distention, appropriately tender to palpation, no guarding rebound or mass Ostomy pink and patent, no production yet Drain serosanguineous Incision intact without erythema or exudate Lungs clear to auscultation bilaterally S1-S2 regular rate rhythm. Urinary Catheter Management: Adkins Latex: Cath Placed During This Visit: yes Reason for Continuing Indwelling Catheter: Other Urinary Catheter Date of Insertion: 02/26/23 Urinary Catheter Time of Insertion: 08:58 Data 03/01/23 05:08 03/01/23 05:08 A&P Assessment and plan (1) Perforation of sigmoid colon: Postoperative day #3 status post perforation of sigmoid colon, sigmoid colectomy and colostomy formation Currently stable Laboratory reviewed, no concerns Continue Rocephin and Flagyl CBC and CMP tomorrow. Continue IV fluids Encouraged her to be ambulating, up in a chair, incentive spirometry (2) COPD (chronic obstructive pulmonary disease): Budesonide twice daily DuoNeb every 6 hours (3) HTN (hypertension): Add lisinopril Qualifiers: Hypertension type: essential hypertension Qualified Code(s): I10 - Essential (primary) hypertension (4) GERD (gastroesophageal reflux disease): Patient with history of GERD Continue Protonix 40 mg IV every 24 hours Qualifiers: Esophagitis presence: esophagitis presence not specified Qualified Code(s): K21.9 - Gastro-esophageal reflux disease without esophagitis Plan Other medical problems as noted in her past medical history Heparin for DVT prophylaxis Thank you for this consultation, we will continue to follow along with you. Attestations Medical Necessity Statement*: Defer to surgical team Diagnoses Perforation of sigmoid colon K63.1 COPD (chronic obstructive pulmonary disease) J44.9 HTN (hypertension) I10 Hypertension type: essential hypertension GERD (gastroesophageal reflux disease) K21.9 Esophagitis presence: esophagitis presence not specified
[2023-03-01] MEDS: pantoprazole 40 mg SDV IVP (15:02)
[2023-03-02] VITALS (13 sets, daily range): BP systolic 159–173; BP diastolic 89–101; PULSE 67–91; RESP 16–22; TEMP 36.5–36.9; O2SAT 93–98
[2023-03-02] MEDS: D5-NS 0.45% + KCL 20 mEq 20 MEQ/1,000 ML BAG 125 MEQ IV ×2 (01:23→12:32)
[2023-03-02] MEDS: ketorolac 30 mg/mL INJ 15 MG IVP ×2 (02:27→08:33)
[2023-03-02] MEDS: ipratropium-albuterol 3 mL Neb INHALATION ×4 (02:34→20:25)
[2023-03-02] MEDS: heparin 5,000 unit/mL INJ 1 mL 5000 UNIT SUBCUT ×3 (02:34→17:41)
[2023-03-02] MEDS: hyDRALAzine 20 mg/mL INJ 1 mL 10 MG IVP (02:47)
[2023-03-02] MEDS: metroNIDAZOLE IV 500 MG/100 ML PREMIX 100 MG IV ×4 (02:48→20:03)
--- NOTE | 2023-03-02 03:08 | PC.NURSE ---
patient became very nauseous but did not have emesis. vitals were taken, cathy 180/112 HR 90 O2 95% RR 20. Hydralazine 10mg IVP was given at 02:47 for BP over 180/[address] PRN order.
[2023-03-02 04:52] LABS: Basophils % 0.5 %; Eosinophils # 0.4 10^3/uL (0.0-0.8); Eosinophils % 4.5 %; Hematocrit 41.9 % (36-47); Lymphocytes # 1.2 10^3/uL (0.8-4.8); Mean Corpuscular HGB Conc 32.5 g/dL (30-55); Mean Corpuscular Hemoglobin 30.2 pg (27-33); Mean Corpuscular Volume 92.9 fl (85-98); Mean Platelet Volume 10.3 fL (7.4-10.4); Monocytes # 0.5 10^3/uL (0.2-0.9); Monocytes % 6.4 %; Neutrophils # 6.02 10^3/uL (1.8-7.7); Neutrophils % 73.1 %; Nucleated Red Blood Cells % 0 %; Platelet Count 303 10^3/cmm (157-399); Red Blood Count 4.51 10^6/uL (3.85-5.65); Red Cell Distribution Width 13.2 % (12.1-15.1); White Blood Count 8.24 10^3/uL (3.29-11.43)
[2023-03-02 05:21] LABS: Anion Gap 13.7 (5-19); Blood Urea Nitrogen 11 mg/dL (8-23); Calcium 8.4 mg/dL (8.5-10.5); Carbon Dioxide 20 mmol/L (22-29); Chloride 109 mmol/L (98-107); Glomerular Filtration Rate 70.9 mL/min (90-130); Glucose 107 mg/dL (65-115); Magnesium 1.8 mg/dL (1.7-2.3); Osmolality Calculated 288 mOsm/kg (285-295); Potassium 3.7 mmol/L (3.5-5.1); Sodium 139 mmol/L (136-145)
[2023-03-02] MEDS: cefTRIAXone 1,000 MG in sodium chloride 0.9% (plus) 50 ML 100 MG IV (08:34)
[2023-03-02] MEDS: lisinopril 10 mg Tablet PO (08:35)
[2023-03-02] MEDS: metoprolol tartrate 25 mg Tablet PO ×2 (08:35→20:03)
[2023-03-02] MEDS: budesonide 0.5 mg/2 mL Neb INHALATION ×2 (09:06→20:26)
--- NOTE | 2023-03-02 12:48 | PM.PN ---
Subjective Subjective: Patient seen and examined. Pain controlled. + flatus in ostomy bag Vitals/I&O/Wt Last Vital Signs Temp 98.1 F 03/02/23 08:00 Pulse 81 03/02/23 09:13 Resp 20 H 03/02/23 09:13 BP 159/96 03/02/23 08:00 Pulse Ox 93 03/02/23 09:13 O2 Del Method Room Air 03/02/23 09:13 O2 Flow Rate 2 02/26/23 23:18 03/01/23 03/02/23 03/02/23 22:59 06:59 14:59 Intake Total 1100 / 2225 100 / 2325 1250 / 1250 Output Total 925 / 925 170 / 1095 Balance 175 / 1300 -70 / 1230 1250 / 1250 Physical Exam Narrative: General: No acute distress, awake alert and oriented x3 Abdomen: Soft, mild distention, appropriately tender to palpation, no guarding rebound or mass Ostomy pink and patent, +flatus Drain serosanguineous Incision intact without erythema or exudate Urinary Catheter Management: Adkins Latex: Cath Placed During This Visit: yes Reason for Continuing Indwelling Catheter: Other Urinary Catheter Date of Insertion: 02/26/23 Urinary Catheter Time of Insertion: 08:58 Data 03/02/23 04:00 03/02/23 04:00 A&P Assessment and plan (1) Perforation of sigmoid colon: (2) Family history of colon cancer: Plan Out of bed to chair 3 times daily Ambulate in halls PT eval and treat DC NGT full liquid diet Likely home tomorrow Appreciate hospitalist input Attestations Medical Necessity Statement*: Patient requires 1 more night in the hospital for return of bowel function after Ortiz's procedure Coding Level of Care Code Acute Code for Chg Fwd Diagnoses Perforation of sigmoid colon K63.1 Family history of colon cancer Z80.0
--- NOTE | 2023-03-02 13:55 | PM.PN ---
Subjective Subjective: seen today flatus in colostomy bag present ng in place Vitals/I&O/Wt Last Vital Signs Temp 97.8 F 03/02/23 12:00 Pulse 67 03/02/23 12:00 Resp 17 03/02/23 12:00 BP 172/89 03/02/23 12:00 Pulse Ox 96 03/02/23 12:00 O2 Del Method Room Air 03/02/23 09:13 O2 Flow Rate 2 02/26/23 23:18 03/01/23 03/02/23 03/02/23 22:59 06:59 14:59 Intake Total 1100 / 2225 100 / 2325 1250 / 1250 Output Total 925 / 925 170 / 1095 Balance 175 / 1300 -70 / 1230 1250 / 1250 Physical Exam Narrative: General: No acute distress, awake alert and oriented x3 Abdomen: Soft, mild distention, appropriately tender to palpation, no guarding rebound or mass Ostomy pink and patent, flatus present Incision intact without erythema or exudate Lungs clear to auscultation bilaterally S1-S2 regular rate rhythm. Urinary Catheter Management: Adkins Latex: Cath Placed During This Visit: yes Reason for Continuing Indwelling Catheter: Other Urinary Catheter Date of Insertion: 02/26/23 Urinary Catheter Time of Insertion: 08:58 Data 03/02/23 04:00 03/02/23 04:00 A&P Assessment and plan (1) Perforation of sigmoid colon: Postoperative day #4 status post perforation of sigmoid colon, sigmoid colectomy and colostomy formation Currently stable Laboratory reviewed, no concerns Continue Rocephin and Flagyl CBC and CMP tomorrow. Continue IV fluids Encouraged her to be ambulating, up in a chair, incentive spirometry (2) COPD (chronic obstructive pulmonary disease): Budesonide twice daily DuoNeb every 6 hours (3) HTN (hypertension): Add lisinopril Qualifiers: Hypertension type: essential hypertension Qualified Code(s): I10 - Essential (primary) hypertension (4) GERD (gastroesophageal reflux disease): Patient with history of GERD Continue Protonix 40 mg IV every 24 hours Qualifiers: Esophagitis presence: esophagitis presence not specified Qualified Code(s): K21.9 - Gastro-esophageal reflux disease without esophagitis Plan Other medical problems as noted in her past medical history Diet as per surgical team. OK for full liquids today. Heparin for DVT prophylaxis Attestations Medical Necessity Statement*: Defer to surgical team Diagnoses Perforation of sigmoid colon K63.1 COPD (chronic obstructive pulmonary disease) J44.9 HTN (hypertension) I10 Hypertension type: essential hypertension GERD (gastroesophageal reflux disease) K21.9 Esophagitis presence: esophagitis presence not specified
[2023-03-02] MEDS: pantoprazole 40 mg SDV IVP (15:45)
[2023-03-02] MEDS: lisinopril 20 mg Tablet 30 MG PO (17:42)
[2023-03-03] VITALS (10 sets, daily range): BP systolic 139–174; BP diastolic 83–100; PULSE 75–101; RESP 17–18; TEMP 36.4–36.8; O2SAT 92–96
[2023-03-03] MEDS: metroNIDAZOLE IV 500 MG/100 ML PREMIX 100 MG IV ×3 (02:01→20:15)
[2023-03-03] MEDS: heparin 5,000 unit/mL INJ 1 mL 5000 UNIT SUBCUT ×2 (02:01→07:35)
--- NOTE | 2023-03-03 06:10 | PC.NURSE ---
Addendum entered by Jackie House RN 03/03/23 06:10: Catheter tip intact. Patient tolerated well. Original Note: Adkins catheter removed at this time.
[2023-03-03] MEDS: lisinopril 20 mg Tablet 40 MG PO (07:34)
[2023-03-03] MEDS: metoprolol tartrate 25 mg Tablet PO ×2 (07:34→20:16)
[2023-03-03] MEDS: cefTRIAXone 1,000 MG in sodium chloride 0.9% (plus) 50 ML 100 MG IV (07:34)
[2023-03-03] MEDS: ketorolac 30 mg/mL INJ 15 MG IVP (07:35)
[2023-03-03] MEDS: budesonide 0.5 mg/2 mL Neb INHALATION ×2 (08:22→21:20)
[2023-03-03] MEDS: ipratropium-albuterol 3 mL Neb INHALATION ×2 (08:22→21:20)
[2023-03-03 09:07] LABS: Basophils # 0.1 10^3/uL (0.0-0.1); Basophils % 0.6 %; Eosinophils # 0.4 10^3/uL (0.0-0.8); Eosinophils % 4.1 %; Hematocrit 42.4 % (36-47); Lymphocytes # 1.8 10^3/uL (0.8-4.8); Lymphocytes % 20.7 %; Mean Corpuscular HGB Conc 32.3 g/dL (30-55); Mean Corpuscular Hemoglobin 29.9 pg (27-33); Mean Corpuscular Volume 92.6 fl (85-98); Mean Platelet Volume 9.3 fL (7.4-10.4); Monocytes # 0.6 10^3/uL (0.2-0.9); Monocytes % 6.2 %; Neutrophils % 67.5 %; Nucleated Red Blood Cells % 0 %; Platelet Count 315 10^3/cmm (157-399); Red Blood Count 4.58 10^6/uL (3.85-5.65); Red Cell Distribution Width 13.5 % (12.1-15.1); White Blood Count 8.88 10^3/uL (3.29-11.43)
[2023-03-03 09:30] LABS: Anion Gap 14.9 (5-19); Blood Urea Nitrogen 17 mg/dL (8-23); Calcium 8.9 mg/dL (8.5-10.5); Carbon Dioxide 21 mmol/L (22-29); Chloride 108 mmol/L (98-107); Glomerular Filtration Rate 70.9 mL/min (90-130); Glucose 122 mg/dL (65-115); Magnesium 1.9 mg/dL (1.7-2.3); Osmolality Calculated 293 mOsm/kg (285-295); Potassium 3.9 mmol/L (3.5-5.1); Sodium 140 mmol/L (136-145)
--- NOTE | 2023-03-03 09:52 | P.DS_ITS ---
Discharge Providers Date of Admission: 02/26/23 11:01 Date of Discharge: March 03, 2023 Attending Provider at Admission: Luan June DO Attending Provider at Discharge: Luan June DO Primary Care Provider: Cheyanne Peterson DO Diagnoses at Discharge Discharge Diagnosis (1) Perforation of sigmoid colon: Status: Acute (2) COPD (chronic obstructive pulmonary disease): Status: Acute (3) HTN (hypertension): Status: Chronic Qualifiers: Hypertension type: essential hypertension Qualified Code(s): I10 - Essential (primary) hypertension (4) GERD (gastroesophageal reflux disease): Status: Chronic Qualifiers: Esophagitis presence: esophagitis presence not specified Qualified Code(s): K21.9 - Gastro-esophageal reflux disease without esophagitis Reason for Visit Reason for Visit: 57772 Z80.0 Hospital Course Hospital Course Pleasant 72-year-old female who underwent outpatient colonoscopy for screening. She received an iatrogenic colotomy and subsequently received an exploratory laparotomy with sigmoidectomy and end colostomy formation. She did well postoperatively. She was eating soft food and her ostomy was functioning appropriately prior to discharge. She was discharged home in good condition and with appropriate follow-up Physical Exam Narrative: General : Patient is well developed , no acute distress, oriented x3 Head : Normal cephalic, a-traumatic. Ears : Pinnae and external canal are normal. Hearing is normal. Eyes : PERRLA, Sclera and injection are normal. No conjunctival discharge. Nose : Mucous membranes are without erythema. Throat : buccal mucosa is normal, gums are without significant recession or hypertrophy. Lungs : Equal chest rise bilaterally, no use of accessory muscles, trachea is midline. Cor : Rate and rhythm are normal. Abdomen : Soft, ND, appropriately tender, no g/r/m Incision intact without erythema or exudate Ostomy pink patent and producing Extremities : No edema, no cyanosis or clubbing, dorsalis pedis pulses are present bilaterally, non-tender to palpation of calves. Upper extremities are normal bilaterally. Back : non-tender to palpation, no CVA tenderness. Neuro : CN II - XII intact, Upper and lower extremities have equal and full strength Urinary Catheter Management: Adkins Latex: Cath Placed During This Visit: yes, but has since been removed by the nurse Reason for Continuing Indwelling Catheter: Decision to DC Catheter Urinary Catheter Date of Insertion: 02/26/23 Urinary Catheter Time of Insertion: 08:58 Date Urinary Catheter Removed: 03/03/23 Time Urinary Catheter Discontinued: 06:00 Discharge Data Studies Completed and Pending Pending at discharge Category Date Time Status Pathology: Surgical [PTH] Routine Pth 02/26/23 10:45 Received Laboratory Results WBC 8.88 10^3/uL (3.29-11.43) 03/03/23 08:58 RBC 4.58 10^6/uL (3.85-5.65) 03/03/23 08:58 Hgb 13.70 g/dL (11.27-16.99) 03/03/23 08:58 Hct 42.4 % (36-47) 03/03/23 08:58 MCV 92.6 fl (85-98) 03/03/23 08:58 MCH 29.9 pg (27-33) 03/03/23 08:58 MCHC 32.3 g/dL (30-55) 03/03/23 08:58 RDW 13.5 % (12.1-15.1) 03/03/23 08:58 Plt Count 315 10^3/cmm (157-399) 03/03/23 08:58 MPV 9.3 fL (7.4-10.4) 03/03/23 08:58 Neut % (Auto) 67.5 % 03/03/23 08:58 Lymph % (Auto) 20.7 % 03/03/23 08:58 Grimes % (Auto) 6.2 % 03/03/23 08:58 Eos % (Auto) 4.1 % 03/03/23 08:58 Baso % (Auto) 0.6 % 03/03/23 08:58 Neut # (Auto) 6.00 10^3/uL (1.8-7.7) 03/03/23 08:58 Lymph # (Auto) 1.8 10^3/uL (0.8-4.8) 03/03/23 08:58 Grimes # (Auto) 0.6 10^3/uL (0.2-0.9) 03/03/23 08:58 Eos # (Auto) 0.4 10^3/uL (0.0-0.8) 03/03/23 08:58 Baso # (Auto) 0.1 10^3/uL (0.0-0.1) 03/03/23 08:58 Nucleated RBC % (auto) 0 % 03/03/23 08:58 Nucleated RBCs # 0.0 /100WBC 03/03/23 08:58 Sodium 140 mmol/L (136-145) 03/03/23 08:58 Potassium 3.9 mmol/L (3.5-5.1) 03/03/23 08:58 Chloride 108 mmol/L (98-107) H 03/03/23 08:58 Carbon Dioxide 21 mmol/L (22-29) L 03/03/23 08:58 Anion Gap 14.9 (5-19) 03/03/23 08:58 BUN 17 mg/dL (8-23) 03/03/23 08:58 Creatinine 0.8 mg/dL (0.5-0.9) 03/03/23 08:58 GFR Calculation 70.9 mL/min (90-130) L 03/03/23 08:58 Glucose 122 mg/dL (65-115) H 03/03/23 08:58 Calculated Osmolality 293 mOsm/kg (285-295) 03/03/23 08:58 Calcium 8.9 mg/dL (8.5-10.5) 03/03/23 08:58 Magnesium 1.9 mg/dL (1.7-2.3) 03/03/23 08:58 Total Bilirubin 0.5 mg/dL (0.15-1.2) 02/26/23 15:05 AST 32 U/L (0-32) 02/26/23 15:05 ALT 34 U/L (0-33) H 02/26/23 15:05 Alkaline Phosphatase 46 U/L (35-105) 02/26/23 15:05 Total Protein 6.9 g/dL (6.6-8.7) 02/26/23 15:05 Albumin 3.9 g/dL (3.5-5.2) 02/26/23 15:05 Globulin 3.0 g/dL (1.3-4.6) 02/26/23 15:05 Procedures Performed Colonoscopy Exploratory laparotomy with sigmoidectomy and end colostomy formation Vitals Last Vital Signs Temp 98.1 F 03/03/23 07:58 Pulse 79 03/03/23 08:23 Resp 18 11/13/23 08:23 BP 149/88 03/03/23 09:40 Pulse Ox 93 03/03/23 08:23 O2 Del Method Room Air 03/03/23 08:23 O2 Flow Rate 2 02/26/23 23:18 FiO2 21 03/02/23 20:00 Discharge Plan Discharge Patient Disposition: Home Condition: Stable Prescriptions: New hydrocodone-acetaminophen 10-325 mg tablet 1 tab PO Q6H PRN (Reason: pain) Qty: 20 0RF Rx Instructions: May take half of a tab at a time Colace 100 mg capsule 100 mg PO BID Qty: 14 0RF Continued nitroglycerin [Nitrostat] 0.4 mg tablet, sublingual 0.4 mg SUBLINGUAL Q5M PRN (Reason: chest pain) Qty: 25 6RF Rx Instructions: do not exceed 3 doses per episode pantoprazole 40 mg tablet,delayed release (DR/EC) 40 mg PO BID PRN (Reason: Acid Reflux) dicyclomine 10 mg capsule 10 mg PO QID PRN (Reason: Abdominal Discomfort) Qty: 360 0RF multivitamin Tablet 1 tab PO DAILY (DME) rsv vaccine See Rx Instructions .Route .MEDSUPPLY Qty: 1 0RF Rx Instructions: As directed meloxicam 7.5 mg tablet 7.5 mg PO DAILY Qty: 90 1RF lisinopril 10 mg tablet 10 mg PO BID 90 Days Qty: 180 1RF Rx Instructions: Take with 5 mg lisinopril 5 mg tablet 5 mg PO BID 90 Days Qty: 180 1RF metoprolol succinate [Toprol XL] 50 mg tablet extended release 24 hr 50 mg PO DAILY 90 Days Qty: 90 1RF simvastatin 20 mg tablet 20 mg PO DAILY Qty: 90 3RF Anoro Ellipta 62.5-25 mcg/actuation blister with device 1 inh inhalation DAILY 90 Days Qty: 60 4RF diphenoxylate-atropine [Lomotil] 2.5-0.025 mg tablet 1 tab PO BID PRN (Reason: Diarrhea) Discharge Orders: Discharge Order (Routine); Ordered 03/03/23 Ordered By: Luan June Referrals: [facility]) [Outside] - 1-3 days Luan June DO [Physician] - 2 weeks Cheyanne Peterson DO [Primary Care Provider] - 4-7 days Discharge Diet: Advance as tolerated Discharge Activity: Limit activity as instructed Patient Instructions: GI Discharge Instructions, Opioid Safety Activity Restrictions/Additional Instructions: No lifting, pushing or pulling over 15 pounds for 6 weeks. Do not soak incisions underwater for 2 weeks. Shower daily. Discharge Attestations Time Spent in Discharge Care*: less than 30 min Status at Discharge: Cognitive status at discharge: cognitively intact , Behavioral status at discharge: cooperative , Quality Metrics Clinical Quality Measures [ No reported AMI, CVA or VTE this stay] Coding Level of Care Code Acute Code for Chg Fwd Diagnoses Perforation of sigmoid colon K63.1 COPD (chronic obstructive pulmonary disease) J44.9 HTN (hypertension) I10 Hypertension type: essential hypertension GERD (gastroesophageal reflux disease) K21.9 Esophagitis presence: esophagitis presence not specified
--- NOTE | 2023-03-03 11:03 | PM.PN ---
Subjective Subjective: seen this am had a BM this am she will be going home today bp elevated, home med restarted Vitals/I&O/Wt Last Vital Signs Temp 98.1 F 03/03/23 07:58 Pulse 79 03/03/23 08:23 Resp 18 03/03/23 08:23 BP 149/88 03/03/23 09:40 Pulse Ox 93 03/03/23 08:23 O2 Del Method Room Air 03/03/23 08:23 O2 Flow Rate 2 02/26/23 23:18 FiO2 21 03/02/23 20:00 03/02/23 03/03/23 03/03/23 22:59 06:59 14:59 Intake Total 1440 / 3050 100 / 3150 270 / 270 Output Total 100 / 100 880 / 980 Balance 1340 / 2950 -780 / 2170 270 / 270 Physical Exam Narrative: General: No acute distress, awake alert and oriented x3 Abdomen: Soft, non tender, no guarding rebound or mass Lungs clear to auscultation bilaterally S1-S2 regular rate rhythm. No edema b/l LE Urinary Catheter Management: Adkins Latex: Cath Placed During This Visit: yes, but has since been removed by the nurse Reason for Continuing Indwelling Catheter: Decision to DC Catheter Urinary Catheter Date of Insertion: 02/26/23 Urinary Catheter Time of Insertion: 08:58 Date Urinary Catheter Removed: 03/03/23 Time Urinary Catheter Discontinued: 06:00 Data 03/03/23 08:58 03/03/23 08:58 A&P Assessment and plan (1) Perforation of sigmoid colon: Postoperative day #5 status post perforation of sigmoid colon, sigmoid colectomy and colostomy formation Currently stable Laboratory reviewed, no concerns Rocephin and Flagyl, she completed 6 days of abx IV fluids stopped Encouraged her to be ambulating, up in a chair, incentive spirometry (2) COPD (chronic obstructive pulmonary disease): Budesonide twice daily DuoNeb every 6 hours (3) HTN (hypertension): Continue home lisinopril 40 mg daily at discharge. Qualifiers: Hypertension type: essential hypertension Qualified Code(s): I10 - Essential (primary) hypertension (4) GERD (gastroesophageal reflux disease): Patient with history of GERD Continue Protonix 40 mg bid daily Qualifiers: Esophagitis presence: esophagitis presence not specified Qualified Code(s): K21.9 - Gastro-esophageal reflux disease without esophagitis Plan Other medical problems as noted in her past medical history Diet as per surgical team. Patient will be discharged today. She will be given supplies for colostomy bag management and will be set up with home health at discharge. Heparin for DVT prophylaxis Attestations Medical Necessity Statement*: Defer to surgical team Coding Level of Care Code Acute Code for Chg Fwd Diagnoses Perforation of sigmoid colon K63.1 COPD (chronic obstructive pulmonary disease) J44.9 HTN (hypertension) I10 Hypertension type: essential hypertension GERD (gastroesophageal reflux disease) K21.9 Esophagitis presence: esophagitis presence not specified
--- NOTE | 2023-03-03 12:10 | PC.SOCIAL ---
IMM Update pg 2 of IMM updated and reviewed w/ patient. Copy provided and copy dated, initialed and placed in chart.
--- NOTE | 2023-03-03 13:34 | PC.NURSE ---
Patient educated with family at bedside. Education was provided on ostomy management and care, changing the colostomy bag, burping colostomy bag, skin care around the ostomy site along with what to do if skin becomes irritated around site. Patient returned demonstration with emptying and burping bag, this nurse assisted patient in changing out the whole appliance. Patient verbalized understanding and all questions were answered. Patient was provided with supplies until tomorrow when home health would be seeing her.
--- NOTE | 2023-03-03 14:21 | PC.NURSE ---
pt unable to void after dover being removed at 0600. Dr. Camacho notified, orders received to bladder scan, which showed 14mL in bladder. pt encouraged to drink more fluids, she refused straight cath at this time. Patient pushed more fluids. approximately 1530 patient stated she felt the urge and tried to void multiple times. she did not want bladder scanned again at this point but wanted more time . Dr. Camacho notified who gave orders to straight cath x1. this resulted in 200mL urine returned. Dr. Camacho notified at this time who gave orders for 500mL ns bolus over 30 minutes.
[2023-03-03] MEDS: sodium chloride 0.9% 500 ML 999 ML IV (17:06)
[2023-03-04] MEDS: heparin 5,000 unit/mL INJ 1 mL 5000 UNIT SUBCUT ×2 (00:48→08:03)
[2023-03-04 02:02] VITALS: PULSE 65; RESP 16; O2SAT 92
[2023-03-04 02:04] VITALS: RESP 16; O2SAT 92
[2023-03-04] MEDS: ipratropium-albuterol 3 mL Neb INHALATION (02:06)
[2023-03-04] MEDS: metroNIDAZOLE IV 500 MG/100 ML PREMIX 100 MG IV (02:53)
[2023-03-04 03:57] VITALS: BP 151/86; PULSE 71; RESP 17; TEMP 36.5; O2SAT 93
[2023-03-04 07:43] VITALS: BP 146/81; PULSE 117; RESP 18; TEMP 36.8; O2SAT 96
[2023-03-04] MEDS: lisinopril 20 mg Tablet 40 MG PO (08:03)
[2023-03-04] MEDS: metoprolol tartrate 25 mg Tablet PO (08:06)
--- NOTE | 2023-03-04 11:08 | PM.PN ---
Subjective Subjective: patients dc was cancelled yesterday due to urinary retention. she has voided 2x overnight she feels well and is ready to go home. Vitals/I&O/Wt Last Vital Signs Temp 98.3 F 03/04/23 07:43 Pulse 117 H 03/04/23 07:43 Resp 18 03/04/23 07:43 BP 146/81 03/04/23 07:43 Pulse Ox 96 03/04/23 07:43 O2 Del Method Room Air 03/04/23 07:43 O2 Flow Rate 2 02/26/23 23:18 FiO2 21 03/04/23 02:04 03/03/23 03/04/23 03/04/23 22:59 06:59 14:59 Intake Total 1560 / 1830 100 / 1930 120 / 120 Output Total 400 / 540 125 / 665 200 / 200 Balance 1160 / 1290 -25 / 1265 -80 / -80 Physical Exam Narrative: General: No acute distress, awake alert and oriented x3 Abdomen: Soft, non tender, no guarding rebound or mass, colostomy bag present Lungs clear to auscultation bilaterally S1-S2 regular rate rhythm. No edema b/l LE Urinary Catheter Management: Adkins Latex: Cath Placed During This Visit: yes, but has since been removed by the nurse Reason for Continuing Indwelling Catheter: Decision to DC Catheter Urinary Catheter Date of Insertion: 02/26/23 Urinary Catheter Time of Insertion: 08:58 Date Urinary Catheter Removed: 03/03/23 Time Urinary Catheter Discontinued: 06:00 Data 03/03/23 08:58 03/03/23 08:58 A&P Assessment and plan (1) Perforation of sigmoid colon: Postoperative day #6 status post perforation of sigmoid colon, sigmoid colectomy and colostomy formation Currently stable Laboratory reviewed, no concerns Rocephin and Flagyl, she completed 6 days of abx IV fluids stopped Encouraged her to be ambulating, up in a chair, incentive spirometry (2) COPD (chronic obstructive pulmonary disease): Budesonide twice daily DuoNeb every 6 hours (3) HTN (hypertension): Continue home lisinopril 40 mg daily at discharge. Qualifiers: Hypertension type: essential hypertension Qualified Code(s): I10 - Essential (primary) hypertension (4) GERD (gastroesophageal reflux disease): Patient with history of GERD Continue Protonix 40 mg bid daily Qualifiers: Esophagitis presence: esophagitis presence not specified Qualified Code(s): K21.9 - Gastro-esophageal reflux disease without esophagitis (5) Urinary retention: patient able to void on her own after straight cath x2. also required a fluid challenge yesterday and dc was held. Plan Other medical problems as noted in her past medical history Diet as per surgical team. Patient will be discharged today. She will be given supplies for colostomy bag management and will be set up with home health at discharge. Heparin for DVT prophylaxis stable for dc today medically Attestations Medical Necessity Statement*: dc today Coding Level of Care Code Acute Code for Chg Fwd Diagnoses Perforation of sigmoid colon K63.1 COPD (chronic obstructive pulmonary disease) J44.9 HTN (hypertension) I10 Hypertension type: essential hypertension GERD (gastroesophageal reflux disease) K21.9 Esophagitis presence: esophagitis presence not specified Urinary retention R33.9
== END 2023-03-04 10:43 | disposition home health service (06) | DRG 909 ==
LOC: ICU 14:09 → MEDSURG 02-27 15:21
PROVIDERS: Internal Medicine; Admitting Provider Surgery; PCP Family Medicine; Visit Provider Surgery
PROC: 0DJD8ZZ Inspection of Lower Intestinal Tract, Via Natural or Artificial Opening Endoscopic (ICD-10-PCS; CPT 45378; principal; 2023-02-26 08:00)
PROC: 0DBN0ZZ Excision of Sigmoid Colon, Open Approach (ICD-10-PCS; CPT 49000; principal; 2023-02-26 09:00)
PROC: 0DBN0ZZ Excision of Sigmoid Colon, Open Approach (ICD-10-PCS; CPT 44320; 2023-02-26 09:00)
PROC: 0DBN0ZZ Excision of Sigmoid Colon, Open Approach (ICD-10-PCS; 2023-02-26 09:00)
DX: K91.71 Accidental puncture and laceration of a digestive system organ or structure during a digestive system procedure (principal); Y73.0 Diagnostic and monitoring gastroenterology and urology devices associated with adverse incidents; R33.9 Retention of urine, unspecified; J44.9 Chronic obstructive pulmonary disease, unspecified; I10 Essential (primary) hypertension; K21.9 Gastro-esophageal reflux disease without esophagitis; E78.5 Hyperlipidemia, unspecified; E66.01 Morbid (severe) obesity due to excess calories; Z68.30 Body mass index [BMI] 30.0-30.9, adult; Z80.0 Family history of malignant neoplasm of digestive organs; Z85.118 Personal history of other malignant neoplasm of bronchus and lung; G47.33 Obstructive sleep apnea (adult) (pediatric); I71.60 Thoracoabdominal aortic aneurysm, without rupture, unspecified; E89.0 Postprocedural hypothyroidism; Z87.891 Personal history of nicotine dependence
CPT/HCPCS: 36415; 45378; 51702; 51798; 80048; 80053; 83735; 85025; 88309; 94640; 94660; 96372; 96376; 97110; 97116; 97161; 97530; C9113; J0360; J0696; J1100; J1170; J1644; J1885; J2405; J2704; J2710; J3010; J3490; J7030; J7040; J7626; P9045

== ENCOUNTER → 2023-03-12 13:57 | Outpatient (BNVA) | payer MEDICARE, OTHER, SELFPAY | PROVIDERS: PCP Family Medicine; Visit Provider Surgery | DX: Z93.9 Artificial opening status, unspecified (principal); Z98.890 Other specified postprocedural states | CPT/HCPCS: 99024 ==

== ENCOUNTER → 2023-03-17 14:19 | Outpatient (BNVA) | payer MEDICARE, OTHER, SELFPAY | PROVIDERS: PCP Family Medicine; Visit Provider Internal Medicine Pulmonary Disease | DX: J98.4 Other disorders of lung (principal); G47.33 Obstructive sleep apnea (adult) (pediatric); Z85.118 Personal history of other malignant neoplasm of bronchus and lung; Z90.2 Acquired absence of lung [part of]; Z87.891 Personal history of nicotine dependence | CPT/HCPCS: 99214 ==

== ENCOUNTER → 2023-03-20 15:03 | Outpatient (BNVA) | payer MEDICARE, OTHER, SELFPAY | PROVIDERS: PCP Family Medicine; Visit Provider Internal Medicine Cardiovascular Disease | DX: I10 Essential (primary) hypertension (principal); I71.20 Thoracic aortic aneurysm, without rupture, unspecified; Z87.891 Personal history of nicotine dependence | CPT/HCPCS: 99214 ==

== ENCOUNTER 2023-06-06 11:42 | Outpatient (CLI) | payer MEDICARE, OTHER, SELFPAY ==
--- NOTE | 2023-06-06 12:15 | USCV_ITS ---
Elizabeth Hernandez Age: 73 Gender: F : 1950 Exam Date: 06/06/2023 12:21 Ordering Phys: Cheyanne Peterson DO Technologist: CT Exam Location: [facility] [place]_ Indication: cad BP: 138 / 85 HR: Rhythm: Sinus Technical Quality: Poor MEASUREMENTS (Male / Female) Normal Values 2D ECHO LVOT Diameter 2.3 cm LV Ejection Fraction MOD 2C 66.9 % Aorta at Sinotubular Diameter 2.4 cm IVC Diameter 1.7 cm M-MODE LA Ao Ratio MM 1.1 AV Cusp Separation MM 2.0 cm DOPPLER AV Peak Velocity 100.0 cm/s LVOT Peak Velocity 93.0 cm/s AV Area Cont Eq vti 3.6 cm squared AV Area Cont Eq pk 3.8 cm squared MV Area PHT 3.5 cm squared Mitral E to A Ratio 0.9 TV Peak Velocity 83.0 cm/s TR Peak Velocity 86.0 cm/s TR Peak Gradient 3.0 mmHg Right Atrial Pressure 3.0 mmHg Pulmonary Artery Systolic Pressu 6.0 mmHg PV Peak Velocity 82.0 cm/s FINDINGS Left Ventricle Normal left ventricular size, systolic function and wall thickness, with no regional wall motion abnormalities. Left ventricular ejection fraction is estimated at 60 %. Grade I/IV diastolic dysfunction (abnormal relaxation filling pattern), normal to mildly elevated filling pressures. Right Ventricle Normal right ventricular size and systolic function. Normal right ventricular systolic pressure. Right Atrium The right atrium is normal in size. Left Atrium The left atrium is normal in size. Mitral Valve Mitral valve not well visualized. No mitral valve regurgitation. No mitral valve stenosis. Aortic Valve Aortic valve not well visualized. No aortic valve stenosis. No aortic valve regurgitation. Tricuspid Valve Structurally normal tricuspid valve. Trace tricuspid valve regurgitation. Pulmonic Valve Pulmonic valve not well visualized. Mild pulmonary valve regurgitation. Pericardium Normal pericardium without effusion. Aorta Ascending aorta diameter 3.74 cm IVC Inferior vena cava not visualized. CONCLUSIONS Normal left ventricular size, systolic function and wall thickness, with no regional wall motion abnormalities. Left ventricular ejection fraction is estimated at 60 %. Grade I/IV diastolic dysfunction (abnormal relaxation filling pattern), normal to mildly elevated filling pressures. Ascending aorta diameter 3.74 cm Previous study was done 07/04/2015. The proximal aorta dimension was reported to be normal at that time. Dr. Alvarado Paez MD (Electronically Signed) Final Date: 07 June 2023 07:32 S
== END 2023-06-06 11:43 | disposition home or self-care (01) ==
PROVIDERS: PCP Family Medicine; Visit Provider Family Medicine
DX: I11.9 Hypertensive heart disease without heart failure (principal); I25.10 Atherosclerotic heart disease of native coronary artery without angina pectoris
CPT/HCPCS: 93306

== ENCOUNTER → 2023-07-01 09:58 | Outpatient (BNVA) | payer MEDICARE, OTHER, SELFPAY | PROVIDERS: PCP Family Medicine; Visit Provider Nurse Practitioner Family | DX: I10 Essential (primary) hypertension (principal); I71.21 Aneurysm of the ascending aorta, without rupture; Z87.891 Personal history of nicotine dependence | CPT/HCPCS: 99213 ==

== ENCOUNTER 2023-07-02 12:22 | Oncology outpatient (recurring) (ONCR) | payer MEDICARE, OTHER, SELFPAY ==
[2023-07-02 13:11] LABS: Basophils # 0.1 10^3/uL (0.0-0.1); Eosinophils # 0.2 10^3/uL (0.0-0.8); Eosinophils % 3.1 %; Hematocrit 45.6 % (36-47); Lymphocytes % 30.2 %; Mean Corpuscular Hemoglobin 28.6 pg (27-33); Mean Corpuscular Volume 89.2 fl (85-98); Mean Platelet Volume 10.2 fL (7.4-10.4); Monocytes # 0.5 10^3/uL (0.2-0.9); Monocytes % 7.3 %; Neutrophils # 3.91 10^3/uL (1.8-7.7); Neutrophils % 58.3 %; Nucleated Red Blood Cells % 0 %; Platelet Count 288 10^3/cmm (157-399); Red Blood Count 5.11 10^6/uL (3.85-5.65); Red Cell Distribution Width 14.4 % (12.1-15.1); White Blood Count 6.72 10^3/uL (3.29-11.43)
[2023-07-02 13:35] LABS: Alanine Aminotransferase 12 U/L (0-33); Albumin Level 4.3 g/dL (3.5-5.2); Alkaline Phosphatase 60 U/L (35-105); Aspartate Amino Transferase 19 U/L (0-32); Blood Urea Nitrogen 20 mg/dL (8-23); Calcium 9.6 mg/dL (8.5-10.5); Carbon Dioxide 25 mmol/L (22-29); Chloride 102 mmol/L (98-107); Globulin 3.4 g/dL (1.3-4.6); Glucose 90 mg/dL (65-115); Osmolality Calculated 288 mOsm/kg (285-295); Sodium 138 mmol/L (136-145); Total Bilirubin 0.5 mg/dL (0.15-1.2); Total Protein 7.7 g/dL (6.6-8.7)
[2023-07-02 14:26] LABS: Anion Gap 15.9 (5-19); Potassium 4.9 mmol/L (3.5-5.1)
== END 2023-07-20 23:59 | disposition home or self-care (01) ==
PROVIDERS: PCP Family Medicine; Visit Provider Internal Medicine Medical Oncology
DX: Z08 Encounter for follow-up examination after completed treatment for malignant neoplasm (principal); Z85.118 Personal history of other malignant neoplasm of bronchus and lung; Z90.2 Acquired absence of lung [part of]; Z87.891 Personal history of nicotine dependence
CPT/HCPCS: 36415; 80053; 85025; 99214

== ENCOUNTER 2023-07-20 22:50 | Emergency (ER) | payer MEDICARE, OTHER, SELFPAY ==
[2023-07-20 23:01] VITALS: BP 171/102; PULSE 107; RESP 21; TEMP 36.7; O2SAT 94; BMI 29.0
--- NOTE | 2023-07-20 23:11 | CTR_ITS ---
PROCEDURE INFORMATION: Exam: CT Abdomen And Pelvis With Contrast Exam date and time: 07/21/2023 12:32 AM Age: 73 years old Clinical indication: Abdominal pain; Generalized; Prior surgery; Surgery date: 1-6 months; Surgery type: Sigmoidectomy with colostomy 2022; Patient HX: Abd pain with hematic output from colostomy; Additional info: Abd pain, large bloody stools in colostomy TECHNIQUE: Imaging protocol: Computed tomography of the abdomen and pelvis with contrast. Radiation optimization: All CT scans at this facility use at least one of these dose optimization techniques: automated exposure control; mA and/or kV adjustment per patient size (includes targeted exams where dose is matched to clinical indication); or iterative reconstruction. Contrast material: OMNI 350; Contrast volume: 100 ml; Contrast route: INTRAVENOUS (IV); COMPARISON: CT chest w con* [id number] 01/20/2023 2:24 PM RADIATION DOSE METRICS: Total DLP (mGy-cm): 767.95 FINDINGS: Lungs: Bilateral basilar linear scarring-atelectasis. Thin-walled lung cyst anterior right lung base. Heart: Normal heart size with coronary calcification. Diaphragm: Elevated right hemidiaphragm similar to prior exam. Liver: Mild hepatomegaly with slightly low parenchymal density. No cirrhosis or suspicious mass. Gallbladder and bile ducts: Normal. No calcified stones. No ductal dilation. Pancreas: Normal. No ductal dilation. Spleen: Normal. No splenomegaly. Adrenal glands: Normal. No mass. Kidneys and ureters: Left upper pole simple renal cyst measuring 5.2 cm. Additional tiny bilateral simple renal cysts are also present. No hydronephrosis, suspicious mass or obstructing calculi. Stomach and bowel: Moderate stool burden with right lower quadrant colostomy. Evidence of partial sigmoid colon resection with a rectal pouch. No obvious regional acute complication. No small bowel obstruction or suspicious bowel wall changes. Appendix: No evidence of appendicitis. Intraperitoneal space: Unremarkable. No free air. No significant fluid collection. Vasculature: Minimal dilatation of ascending aorta at 4.1 cm. Descending aorta measures 2.5 cm. Mild dilatation of main pulmonary artery at 3.2 cm. Aortoiliac calcifications without aneurysm. Diffuse calcified plaque formation in the proximal celiac artery with [id number] stenoses. Partially calcified plaque at the proximal SMA with moderate stenosis. Lymph nodes: No enlarged lymph nodes. Urinary bladder: Unremarkable as visualized. Reproductive: Unremarkable as visualized. Bones/joints: Multilevel vertebral disc degeneration and endplate osteophytes. No acute osseous findings otherwise. Soft tissues: No acute findings. CT/CT abdomen pelvis w con* [id number] IMPRESSION: 1. Partial sigmoid resection with rectal pouch and left lower quadrant colostomy. No obvious acute bowel abnormalities however follow-up assessment or endoscopy should be considered given history of GI bleed. 2. Mild hepatomegaly with probable mild steatosis. 3. Coronary calcification and mild dilatation ascending aorta and pulmonary artery. Other nonacute vascular findings as above. COMMENTS: Consistent with the [employer]'s Incidental Findings Committee white paper (J Am Jodi Radiol 2018): Any incidental renal lesion less than 1 cm or classified as too small to characterize, or any incidental cystic renal lesion characterized as simple-appearing, is likely benign. No follow-up imaging is recommended for these lesions per consensus recommendations based on imaging criteria.
[2023-07-21 00:13] LABS: Basophils % 0.4 %; Eosinophils % 0.3 %; Hematocrit 44.3 % (36-47); Lymphocytes # 1.1 10^3/uL (0.8-4.8); Lymphocytes % 9.7 %; Mean Corpuscular Volume 88.1 fl (85-98); Mean Platelet Volume 10.2 fL (7.4-10.4); Monocytes # 0.3 10^3/uL (0.2-0.9); Monocytes % 3.1 %; Neutrophils # 9.55 10^3/uL (1.8-7.7); Neutrophils % 86.2 %; Nucleated Red Blood Cells % 0 %; Platelet Count 294 10^3/cmm (157-399); Red Blood Count 5.03 10^6/uL (3.85-5.65); Red Cell Distribution Width 13.9 % (12.1-15.1); White Blood Count 11.06 10^3/uL (3.29-11.43)
[2023-07-21 00:31] LABS: Alanine Aminotransferase 15 U/L (0-33); Albumin Level 4.3 g/dL (3.5-5.2); Alkaline Phosphatase 80 U/L (35-105); Anion Gap 19.1 (5-19); Aspartate Amino Transferase 18 U/L (0-32); Blood Urea Nitrogen 25 mg/dL (8-23); Carbon Dioxide 21 mmol/L (22-29); Chloride 103 mmol/L (98-107); Creatinine Clr Calc Pharmacy 61.7624; Globulin 3.8 g/dL (1.3-4.6); Glucose 175 mg/dL (65-115); Lipase 54 U/L (13-60); Osmolality Calculated 297 mOsm/kg (285-295); Potassium 4.1 mmol/L (3.5-5.1); Sodium 139 mmol/L (136-145); Total Bilirubin 0.3 mg/dL (0.15-1.2); Total Protein 8.1 g/dL (6.6-8.7)
[2023-07-21 00:32] LABS: Lactic Sepsis W/Reflex 2.6 mmol/L (0.5-2.2)
[2023-07-21] MEDS: iohexol 350 mg/mL 500 mL Btl (per mL) IV (00:32)
[2023-07-21] MEDS: sodium chloride 0.9% 1,000 ML 999 ML IV (00:33)
[2023-07-21] MEDS: morphine 4 mg/mL SDV 1 mL IVP (00:57)
[2023-07-21] MEDS: ondansetron 2 mg/ML SDV 2 mL 4 MG IVP (00:57)
--- NOTE | 2023-07-21 01:11 | W.ED.ABDPA2 ---
HPI - Abdominal Pain General: Chief Complaint: Abdominal Pain Stated Complaint: Blood in Bag and Cramps Time Seen by Provider: 07/21/23 00:23 History of Present Illness: 73-year-old female with a history of left lower quadrant colostomy following perforation as a complication of colonoscopy. That was last February. She presents tonight with cramping abdominal pain, loose stool output in her bag with blood present. She denies fever. She is nauseated but has not vomited. These are not usual symptoms for her, and with blood concerned her. No sick contacts. She has not been on antibiotics recently. Associated Symptoms: Denies chills, fever(s) and vomiting Review of Systems Const: Denies: fever(s), chills or body aches Eyes: Denies: change in vision Card: Denies: chest pain or palpitations Resp: Denies: dyspnea, productive cough, non-productive cough or wheezing GI: Denies: vomiting : Denies: difficulty voiding Skin/Breast: Denies: rash Neuro: Denies: headache(s), weakness in extremities, dizziness or confusion PFSH ED PFSH: Medical History Family history of colon cancer History of colon polyps Non-small cell lung cancer Dyslipidemia COPD (chronic obstructive pulmonary disease) Thoracic aortic aneurysm LINDA (obstructive sleep apnea) Compliant with CPAP GERD (gastroesophageal reflux disease) HTN (hypertension) Surgical History Hx of colonoscopy S/P thoracotomy (11/06/21) Thoracotomy with right upper lobe posterior segmentectomy S/P subtotal thyroidectomy (~1984) Left S/P shoulder surgery scope on the left Family History Mother Cancer Ovarian CA Hypertension Father Cancer Colon CA Brother Myocardial infarction CAD (coronary artery disease) Alcoholism Other Diabetes Denies family history of Clotting disorder Dementia Hyperlipidemia Psychiatric illness Chronic kidney disease (CKD) Suicide Anesthesia complication Bleeding disorder Lung disease Stroke Social History Smoking and tobacco/nicotine status: former use of tobacco/nicotine Quit status (tobacco/nicotine): has quit using Year quit tobacco: 2015 Former quit date comment: 1ppd X 46 years, started at age 19 Alcohol intake: current Alcohol intake frequency: holidays/special occasions only Physical Exam Const: COMMON NORMALS: no acute distress GENERAL APPEARANCE: cooperative; not ill appearing and not frail appearing HENMT: COMMON NORMALS: normocephalic, atraumatic and Normal external nose present HEAD & SCALP: normocephalic and atraumatic FACE & SINUS: normal facial exam and face symmetric NOSE: Normal external nose present Eye: COMMON NORMALS: Equal, round and reactive pupils present and EOMs intact bilaterally PUPIL: Yes Equal, round and reactive pupils present Neck/C-Spine: GENERAL: Yes trachea midline Chest: CHEST: Yes Symmetrical chest wall rise Resp: COMMON NORMALS: normal respiratory effort, No retractions, No use of accessory muscles and clear to auscultation bilaterally AUSCULTATION: clear to auscultation bilaterally Cardio: COMMON NORMALS: regular rate and regular rhythm RATE: regular rate RHYTHM: regular rhythm GI: COMMON NORMALS: Normal to inspection, nondistended, normoactive bowel sounds present Extremity: COMMON NORMALS: no pedal edema Neuro: KENN[place]I COMA SCALE: document GCS findings [place] coma scale eye opening: Spontaneous [place] coma scale verbal response: Orientated [place] coma scale motor response: Obey commands [place] coma scale total score: 15 SENSORY EXAM: Yes extremities (intact) Psych: COMMON NORMALS: speech normal SPEECH: Yes normal speech Skin: COMMON NORMALS: no rashes or lesions noted GENERAL SKIN EXAM: no rashes or lesions noted Course Vital Signs: Vital signs: Vital Signs Temperature 98.1 F 07/20/23 23:01 Pulse Rate 93 07/21/23 02:59 Respiratory Rate 14 07/21/23 02:59 Blood Pressure 164/72 07/21/23 02:59 Pulse Oximetry 96 07/21/23 02:59 Oxygen Delivery Me thod Nasal Cannula 07/21/23 01:46 MDM - Abdominal Pain Medical Decision Making She is mildly hypertensive. She is afebrile. Pain is improved after being administration of morphine and Zofran. She has received IV fluid as well. CBC is normal. BMP shows a BUN of 25, and is otherwise not terribly remarkable. Her CRP is 3. Liver enzymes are normal. Her lactic acid is 2.6. CT of the abdomen pelvis shows her intact colostomy with no obvious abnormalities. The patient feels better. She wishes to go home. She will be discharged on antibiotics given the bloody stool. She is due to see her surgeon on Friday, and so a CD is printed for her with her images. She is to return for worsening symptoms despite treatment prior to that should they occur. Lab Data 07/21/23 00:01 07/21/23 00:01 Labs/Radiology: Radiology Impressions Abdomen/Pelvis CT 07/20/23 23:11 IMPRESSION: 1. Partial sigmoid resection with rectal pouch and left lower quadrant colostomy. No obvious acute bowel abnormalities however follow-up assessment or endoscopy should be considered given history of GI bleed. 2. Mild hepatomegaly with probable mild steatosis. 3. Coronary calcification and mild dilatation ascending aorta and pulmonary artery. Other nonacute vascular findings as above. COMMENTS: Consistent with the [employer]'s Incidental Findings Committee white paper (J Am Jodi Radiol 2018): Any incidental renal lesion less than 1 cm or classified as too small to characterize, or any incidental cystic renal lesion characterized as simple-appearing, is likely benign. No follow-up imaging is recommended for these lesions per consensus recommendations based on imaging criteria. Laboratory Results WBC 11.06 10^3/uL (3.29-11.43) 07/21/23 00:01 RBC 5.03 10^6/uL (3.85-5.65) 07/21/23 00:01 Hgb 14.60 g/dL (11.27-16.99) 07/21/23 00:01 Hct 44.3 % (36-47) 07/21/23 00:01 MCV 88.1 fl (85-98) 07/21/23 00: MCH 29.0 pg (27-33) 07/21/23 00:01 MCHC 33.0 g/dL (30-55) 07/21/23 00:01 RDW 13.9 % (12.1-15.1) 07/21/23 00:01 Plt Count 294 10^3/cmm (157-399) 07/21/23 00:01 MPV 10.2 fL (7.4-10.4) 07/21/23 00:01 Neut % (Auto) 86.2 % 07/21/23 00:01 Lymph % (Auto) 9.7 % 07/21/23 00:01 Graves % (Auto) 3.1 % 07/21/23 00:01 Eos % (Auto) 0.3 % 07/21/23 00:01 Baso % (Auto) 0.4 % 07/21/23 00:01 Neut # (Auto) 9.55 10^3/uL (1.8-7.7) H 07/21/23 00:01 Lymph # (Auto) 1.1 10^3/uL (0.8-4.8) 07/21/23 00: Graves # (Auto) 0.3 10^3/uL (0.2-0.9) 07/21/23 00:01 Eos # (Auto) 0.0 10^3/uL (0.0-0.8) 07/21/23 00:01 Baso # (Auto) 0.0 10^3/uL (0.0-0.1) 07/21/23 00:01 Nucleated RBC % (auto) 0 % 07/21/23 00: Nucleated RBCs # 0.0 /100WBC 07/21/23 00:01 Sodium 139 mmol/L (136-145) 07/21/23 00:01 Potassium 4.1 mmol/L (3.5-5.1) 07/21/23 00:01 Chloride 103 mmol/L (98-107) 07/21/23 00:01 Carbon Dioxide 21 mmol/L (22-29) L 07/21/23 00:01 Anion Gap 19.1 (5-19) H 07/21/23 00:01 BUN 25 mg/dL (8-23) H 07/21/23 00:01 Creatinine 0.9 mg/dL (0.5-0.9) 07/21/23 00: GFR Calculation Not Reportable 07/21/23 00: Glucose 175 mg/dL (65-115) H 07/21/23 00:01 Calculated Osmolality 297 mOsm/kg (285-295) H 07/21/23 00:01 Lactic Acid 2.6 mmol/L (0.5-2.2) H 07/21/23 00:01 Calcium 10.0 mg/dL (8.5-10.5) 07/21/23 00:01 Total Bilirubin 0.3 mg/dL (0.15-1.2) 07/21/23 00:01 AST 18 U/L (0-32) 07/21/23 00:01 ALT 15 U/L (0-33) 07/21/23 00:01 Alkaline Phosphatase 80 U/L (35-105) 07/21/23 00:01 C-Reactive Protein 3.0 mg/L (0.0-4.9) 07/21/23 00:01 Total Protein 8.1 g/dL (6.6-8.7) 07/21/23 00:01 Albumin 4.3 g/dL (3.5-5.2) 07/21/23 00:01 Globulin 3.8 g/dL (1.3-4.6) 07/21/23 00:01 Lipase 54 U/L (13-60) 07/21/23 00:01 Urine Color Yellow (Yellow) 07/21/23 01:40 Urine Appearance Clear (CLEAR) 07/21/23 01:40 Urine pH 5 (5-7) 07/21/23 01:40 Ur Specific [place] 1.005 (1.005-1.030) 07/21/23 01:40 Urine Protein Neg (Negative) 07/21/23 01:40 Urine Glucose (UA) Norm (Normal) 07/21/23 01:40 Urine Ketones Negative (Negative) 07/21/23 01:40 Urine Blood 2+ (Negative) H 07/21/23 01:40 Urine Nitrate Negative (Negative) 07/21/23 01:40 Urine Bilirubin Neg (Negative) 07/21/23 01:40 Urine Urobilinogen Neg mg/dL (Negative) 07/21/23 01:40 Ur Leukocyte Esterase Negative (Negative) 07/21/23 01:40 Urine RBC 5-10 /hpf (0-2) H 07/21/23 01:40 Urine WBC 5-10 /hpf (0-5) H 07/21/23 01:40 Ur Squamous Epith Cells 15-25 /hpf (0-5) H 07/21/23 01:40 Amorphous Sediment Not Reportable 07/21/23 01:40 Urine Bacteria 1+ /hpf (NONE) H 07/21/23 01:40 Urine Mucus Trace /hpf 07/21/23 01:40 All radiology interpretation(s) finalized by discharge Discharge Plan Discharge Patient Disposition: Home Clinical Impression: Enteritis Condition: Stable Prescriptions: New ciprofloxacin HCl 500 mg tablet 500 mg PO BID Qty: 14 0RF metronidazole 500 mg tablet 500 mg PO BID 7 Days Qty: 14 0RF ondansetron 4 mg tablet,disintegrating 4 mg PO Q6H PRN (Reason: nausea and vomiting) Qty: 14 0RF No Action pantoprazole 40 mg tablet,delayed release (DR/EC) 40 mg PO BID PRN (Reason: Acid Reflux) (DME) rsv vaccine See Rx Instructions .Route .MEDSUPPLY Qty: 1 0RF Rx Instructions: As directed meloxicam 7.5 mg tablet 7.5 mg PO DAILY Qty: 90 1RF albuterol sulfate [Ventolin HFA] 90 mcg/actuation HFA aerosol inhaler 1 inh inhalation QID PRN (Reason: shortness of breath or wheezing) Qty: 8.5 3RF lisinopril 20 mg tablet 20 mg PO DAILY simvastatin 20 mg tablet 20 mg PO DAILY Qty: 90 3RF Anoro Ellipta 62.5-25 mcg/actuation blister with device 1 inh inhalation DAILY 90 Days Qty: 60 4RF metoprolol succinate 50 mg tablet extended release 24 hr 75 mg PO DAILY 90 Days Qty: 135 3RF diphenoxylate-atropine [Lomotil] 2.5-0.025 mg tablet 1 tab PO BID PRN (Reason: Diarrhea) Discharge Orders: Discharge ED (Routine); Ordered 07/21/23 Ordered By: Phillip Crouch Referrals: Cheyanne Peterson DO [Primary Care Provider] - 1-3 days Patient Instructions: Enteritis (ED), Opioid Safety, Pain Management Activity Restrictions/Additional Instructions: Antibiotics as directed. Take your nausea medication scheduled every 4 hours while awake for the first 24 hours, then as needed. A liquid diet would be beneficial for the first 24 hours as well. Return for fever greater than 100, worsening pain despite treatment, vomiting liquids or medications, continued blood output in your colostomy bag, any other concerning symptoms. See your doctor on Friday as scheduled. Coding Level of Care Code ED Counseling Services Manager for Mare Bauman
[2023-07-21 01:46] VITALS: BP 138/77; PULSE 99; RESP 16; O2SAT 96
[2023-07-21 01:52] LABS: Add Urine Microscopic? YES; Bacteria Urine 1+ /hpf; Bilirubin Urine Neg (Negative); Blood Urine 2+ (Negative); Glucose Urine UA Norm (Normal); Ketones Urine Negative (Negative); Leukocyte Esterase Urine Negative (Negative); Mucus Urine TRACE /hpf; Nitrate Urine Negative (Negative); Protein Urine Neg (Negative); Specific Gravity, Urine 1.005 (1.005-1.030); Squamous Epithelial Cell Urine 15-25 /hpf (0-5); Urine Appearance Clear (CLEAR); Urine Color Yellow (Yellow); Urobilinogen Urine Neg (Negative); pH Urine 5 (5-7)
[2023-07-21 01:53] LABS: Reflex Lactate Order REFLEX LACTIC ORDERD
[2023-07-21] MEDS: metroNIDAZOLE 500 MG Tablet PO (02:24)
[2023-07-21] MEDS: ciprofloxacin 500 mg Tablet PO (02:24)
[2023-07-21] MEDS: ketorolac 30 mg/mL INJ 15 MG IVP (02:24)
[2023-07-21 02:59] VITALS: BP 164/72; PULSE 93; RESP 14; O2SAT 96
== END 2023-07-21 03:00 | disposition home or self-care (01) ==
PROVIDERS: Emergency Provider Emergency Medicine; PCP Family Medicine
DX: K52.9 Noninfective gastroenteritis and colitis, unspecified (principal); Z87.891 Personal history of nicotine dependence; Z85.118 Personal history of other malignant neoplasm of bronchus and lung; E78.5 Hyperlipidemia, unspecified; J44.9 Chronic obstructive pulmonary disease, unspecified; I10 Essential (primary) hypertension
CPT/HCPCS: 36415; 74177; 80053; 81001; 83605; 83690; 85025; 86140; 96374; 96375; 99285; J1885; J2270; J2405; J7030; Q9967

== ENCOUNTER 2023-07-29 15:36 | Outpatient (CLI) | payer MEDICARE, OTHER, SELFPAY ==
--- NOTE | 2023-07-29 16:00 | CTR_ITS ---
PROCEDURE INFORMATION: Exam: CT Chest With Contrast; Diagnostic Exam date and time: 07/29/2023 4:07 PM Age: 73 years old Clinical indication: Condition or disease; Lung condition and disease; Cancer of the lung; Bilateral; Unspecified; Prior surgery; Surgery date: 6+ months; Additional info: Lung cancer TECHNIQUE: Imaging protocol: Diagnostic computed tomography of the chest with contrast. Radiation optimization: All CT scans at this facility use at least one of these dose optimization techniques: automated exposure control; mA and/or kV adjustment per patient size (includes targeted exams where dose is matched to clinical indication); or iterative reconstruction. Contrast material: OMNI 350; Contrast volume: 100 ml; Contrast route: INTRAVENOUS (IV); COMPARISON: CT chest w con* [id number] 01/20/2023 2:24 PM RADIATION DOSE METRICS: Total DLP (mGy-cm): 415.66 FINDINGS: Thyroid: Incompletely imaged 2.6 cm right thyroid nodule. 4 cm ectasia of the ascending thoracic aorta. Lungs: Emphysematous COPD. Mild linear fibrosis in each lower lobe. Pleural spaces: Unremarkable. No pneumothorax. No pleural effusion. Heart: Unremarkable. No cardiomegaly. No pericardial effusion. Lymph nodes: Unremarkable. No enlarged lymph nodes. Vasculature: See Thyroid finding. Liver: Hepatic steatosis. Kidneys and ureters: Incompletely imaged left renal cyst. Bones/joints: Unremarkable. No acute fracture. Soft tissues: Unremarkable. Other findings: Prior right-sided surgery with volume loss. No recurrent or residual mass. CT/CT chest w con* [id number] IMPRESSION: No evidence of recurrent or residual neoplastic. COMMENTS: 1. Consistent with the [employer]'s Incidental Findings Committee white paper (J Am Jodi Radiol 2018): Any incidental renal lesion less than 1 cm or classified as too small to characterize, or any incidental cystic renal lesion characterized as simple-appearing, is likely benign. No follow-up imaging is recommended for these lesions per consensus recommendations based on imaging criteria. 2. Consistent with the [employer]'s Incidental Findings Committee white paper (J Am Jodi Radiol 2015): In patients aged 35 years and older with an incidental thyroid nodule equal to or greater than 1.[address], MRI or extrathyroidal US, further evaluation with dedicated thyroid US is recommended for patients with normal life expectancy and without comorbidities. For smaller nodules without suspicious features, no further evaluation or follow up is recommended. 3. The presence of pulmonary emphysema on CT is an independent risk factor for lung cancer. In the absence of a history or active diagnosis of lung cancer, it is recommended that this patient with emphysema be evaluated for enrollment in a low dose CT lung cancer screening program.
[2023-07-29] MEDS: iohexol 350 mg/mL 500 mL Btl (per mL) IV (16:11)
== END 2023-07-29 15:37 | disposition home or self-care (01) ==
LOC: RAD 15:36
PROVIDERS: PCP Family Medicine; Visit Provider Internal Medicine
DX: C34.11 Malignant neoplasm of upper lobe, right bronchus or lung (principal); J43.9 Emphysema, unspecified
CPT/HCPCS: 71260; Q9967

== ENCOUNTER → 2023-09-18 11:17 | Outpatient (BNVA) | payer MEDICARE, OTHER, SELFPAY | PROVIDERS: PCP Family Medicine; Visit Provider Family Medicine | DX: I10 Essential (primary) hypertension (principal); Z13.6 Encounter for screening for cardiovascular disorders | CPT/HCPCS: 80053; 85025 ==

== ENCOUNTER → 2023-09-26 11:36 | Outpatient (BNVA) | payer MEDICARE, OTHER, SELFPAY | PROVIDERS: PCP Family Medicine; Visit Provider Family Medicine | DX: I10 Essential (primary) hypertension (principal) | CPT/HCPCS: 80048 ==

== ENCOUNTER → 2023-12-17 12:27 | Outpatient (BNVA) | payer MEDICARE, OTHER, SELFPAY | PROVIDERS: PCP Family Medicine; Visit Provider Internal Medicine Critical Care Medicine | DX: C34.11 Malignant neoplasm of upper lobe, right bronchus or lung (principal); J43.2 Centrilobular emphysema; G47.33 Obstructive sleep apnea (adult) (pediatric); Z71.89 Other specified counseling | CPT/HCPCS: 99213 ==

== ENCOUNTER 2023-12-31 08:56 | Outpatient (CLI) | payer MEDICARE, OTHER, SELFPAY ==
--- NOTE | 2023-12-31 08:57 | CT_ITS ---
WS: [id number] CT chest w con* [id number] HISTORY: lung cancer TECHNIQUE: Axial imaging performed through the thorax. Coronal and sagittal reformats are submitted. All CT scans at [facility] use at least one of these dose optimization techniques: automated exposure control; mA and/or kV adjustment per patient size (includes targeted exams where dose is mat ched to clinical indication); or iterative reconstruction. CONTRAST: Omnipaque 350; 100 mL IV. DLP: 312.10 mGy.cm COMPARISON: 07/29/2023, 01/20/2023 Lungs and central airway: Status post RIGHT upper lobe segmentectomy. Volume loss in the RIGHT lung w ith elevated RIGHT diaphragm. Mild centrilobular emphysema. Surgical sutures at the RIGHT hilum with no adjacent recurrent soft tissue mass. Mild thickening along the RIGHT fissure. Pleura: Normal. No pleural effusion. Heart and pericardium: Mild cardiomegaly. No pericardial effusion. Mediastinum and nancy: Stable RIGHT hilar lymph node at 13 mm. No enlarging mediastinal lymph nodes. Vessels: Atherosclerosis aorta. Chest wall and lower neck: Stable RIGHT thyroid nodule 2.5 x 2.0 cm. Upper abdomen: Mild hepatic steatosis. Incompletely visualized LEFT renal cyst 4.7 x 4.8 cm. Supraren al aortic calcifications. Gallbladder is negative. Osseous structures: No destructive bone process. Dense calcification at T11 encroaching upon the vent ral thecal sac. No change. CT/CT chest w con* [id number] IMPRESSION: 1. Status post RIGHT upper segmentectomy. 2. No recurrent mass or adenopathy. 3. Chronic emphysema. 4. Stable RIGHT thyroid nodule and LEFT renal cyst.
[2023-12-31 10:07] LABS: Blood Urea Nitrogen 20 mg/dL (8-23)
[2023-12-31] MEDS: iohexol 350 mg/mL 500 mL Btl (per mL) IV (10:34)
== END 2023-12-31 08:57 | disposition home or self-care (01) ==
LOC: RAD 08:56
PROVIDERS: PCP Family Medicine; Visit Provider Internal Medicine
DX: C34.11 Malignant neoplasm of upper lobe, right bronchus or lung (principal); J43.9 Emphysema, unspecified; I70.0 Atherosclerosis of aorta; E04.1 Nontoxic single thyroid nodule; N28.1 Cyst of kidney, acquired; Z90.2 Acquired absence of lung [part of]
CPT/HCPCS: 71260; 82565; 84520

== ENCOUNTER 2024-01-09 09:01 | Oncology outpatient (recurring) (ONCR) | payer MEDICARE, OTHER, SELFPAY ==
[2024-01-09 09:29] LABS: Basophils # 0.1 10^3/uL (0.0-0.1); Eosinophils # 0.3 10^3/uL (0.0-0.8); Hematocrit 37.6 % (36-47); Lymphocytes # 1.8 10^3/uL (0.8-4.8); Lymphocytes % 29.5 %; Mean Corpuscular HGB Conc 30.9 g/dL (30-55); Mean Corpuscular Hemoglobin 28.2 pg (27-33); Mean Corpuscular Volume 91.5 fl (85-98); Mean Platelet Volume 10.5 fL (7.4-10.4); Monocytes # 0.5 10^3/uL (0.2-0.9); Monocytes % 7.4 %; Neutrophils # 3.52 10^3/uL (1.8-7.7); Neutrophils % 56.6 %; Nucleated Red Blood Cells % 0 %; Platelet Count 254 10^3/cmm (157-399); Red Blood Count 4.11 10^6/uL (3.85-5.65); Red Cell Distribution Width 13.7 % (12.1-15.1); White Blood Count 6.21 10^3/uL (3.29-11.43)
[2024-01-09 09:47] LABS: Alanine Aminotransferase < 5 U/L (0-33); Albumin Level 4.1 g/dL (3.5-5.2); Alkaline Phosphatase 63 U/L (35-105); Anion Gap 15.1 (5-19); Aspartate Amino Transferase 13 U/L (0-32); Blood Urea Nitrogen 20 mg/dL (8-23); Calcium 9.3 mg/dL (8.5-10.5); Carbon Dioxide 24 mmol/L (22-29); Chloride 107 mmol/L (98-107); Globulin 3.5 g/dL (1.3-4.6); Glucose 104 mg/dL (65-115); Osmolality Calculated 297 mOsm/kg (285-295); Potassium 4.1 mmol/L (3.5-5.1); Sodium 142 mmol/L (136-145); Total Bilirubin 0.3 mg/dL (0.15-1.2); Total Protein 7.6 g/dL (6.6-8.7)
== END 2024-01-19 23:59 | disposition home or self-care (01) ==
PROVIDERS: Internal Medicine; PCP Family Medicine; Visit Provider Internal Medicine Medical Oncology
DX: C34.11 Malignant neoplasm of upper lobe, right bronchus or lung (principal); Z87.891 Personal history of nicotine dependence; I10 Essential (primary) hypertension
CPT/HCPCS: 36415; 80053; 85025; 99214

== ENCOUNTER → 2024-04-27 09:16 | Outpatient (BNVA) | payer MEDICARE, OTHER, SELFPAY | PROVIDERS: PCP Family Medicine; Visit Provider Family Medicine | DX: E78.5 Hyperlipidemia, unspecified (principal); Z72.51 High risk heterosexual behavior | CPT/HCPCS: 80061; 86705; 86706; 86709; 86803; 87340; 87806 ==

== ENCOUNTER 2024-05-05 13:38 | Outpatient (CLI) | payer MEDICARE, OTHER, SELFPAY ==
--- NOTE | 2024-05-05 13:46 | MM_ITS ---
WS: [email or web address] BILATERAL 3D TOMOSYNTHESIS DIGITAL SCREENING MAMMOGRAPHY WITH CAD CLINICAL INFORMATION: SCREENING HISTORY: Screening mammogram. No current complaints. COMPARISON: 2022 TECHNIQUE: Bilateral CC and MLO views. FINDINGS: Scattered fibroglandular densities bilaterally. No suspicious focal mass, asymmetry, calcifications, or architectural distortion. No evidence of malignancy. Incidental punctate calcifications. MM/MM [facility] tomosynthesis [id number] IMPRESSION: DENSITY: There are scattered areas of fibroglandular density. BI-RADS: 2 - Benign. FOLLOW UP: 1 Year Follow-up Recommend return to annual screening mammography.
--- NOTE | 2024-05-05 13:46 | XR_ITS ---
WS: [email or web address] SCREENING DEXA SCAN [employer] CLINICAL INFORMATION: osteoporosis COMPARISON: None. FINDINGS: The L1-L4 bone mineral density measures 1.642 g/cm2. This corresponds to a T score score of 3.8 and Z score of 5.0. Left femoral neck bone mineral density measures 1.086 g/cm2. This corresponds to a T score of 0.6 and Z score of 1.8. Right femoral neck bone mineral density measures 1.022 g/cm2. This corresponds to a T score 0.1of and Z score of 1.3. Mean femoral neck bone mineral density measures 1.054 g/cm2. This corresponds to a T score of 0.4 and Z score of 1.6. XR/XR DEXA axial skeleton* [id number] IMPRESSION: Normal bone mineralization lumbar spine. Normal bone mineralization femoral nec ks. Patient's FRAX calculated 10 year probability for major osteoporotic fracture i s 9.1% and osteoporotic hip fracture is 1.1%.
== END 2024-05-05 13:39 | disposition home or self-care (01) ==
LOC: RAD 13:42
PROVIDERS: PCP Family Medicine; Visit Provider Family Medicine
DX: Z12.31 Encounter for screening mammogram for malignant neoplasm of breast (principal); M81.0 Age-related osteoporosis without current pathological fracture; R92.323 Mammographic fibroglandular density, bilateral breasts; R92.1 Mammographic calcification found on diagnostic imaging of breast
CPT/HCPCS: 77063; 77067; 77080; 80061; 86705; 86706; 86709; 86803; 87340; 87806

== ENCOUNTER 2024-07-08 09:47 | Oncology outpatient (recurring) (ONCR) | payer MEDICARE, OTHER, SELFPAY ==
[2024-07-08 10:29] LABS: Basophils # 0.1 10^3/uL (0.0-0.1); Basophils % 0.8 %; Eosinophils # 0.2 10^3/uL (0.0-0.8); Lymphocytes # 1.8 10^3/uL (0.8-4.8); Lymphocytes % 23.2 %; Mean Corpuscular HGB Conc 31.3 g/dL (30-55); Mean Corpuscular Hemoglobin 28.4 pg (27-33); Mean Corpuscular Volume 90.5 fl (85-98); Monocytes # 0.5 10^3/uL (0.2-0.9); Monocytes % 6.9 %; Neutrophils # 5.02 10^3/uL (1.8-7.7); Neutrophils % 66.7 %; Nucleated Red Blood Cells % 0 %; Platelet Count 260 10^3/cmm (157-399); Red Blood Count 4.97 10^6/uL (3.85-5.65); Red Cell Distribution Width 13.8 % (12.1-15.1); White Blood Count 7.53 10^3/uL (3.29-11.43)
[2024-07-08 10:42] LABS: Alanine Aminotransferase 12 U/L (0-33); Albumin Level 4.3 g/dL (3.5-5.2); Alkaline Phosphatase 65 U/L (35-105); Anion Gap 16.6 (5-19); Blood Urea Nitrogen 24 mg/dL (8-23); Calcium 9.3 mg/dL (8.5-10.5); Carbon Dioxide 23 mmol/L (22-29); Chloride 105 mmol/L (98-107); Globulin 3.5 g/dL (1.3-4.6); Glucose 100 mg/dL (65-115); Osmolality Calculated 294 mOsm/kg (285-295); Potassium 4.6 mmol/L (3.5-5.1); Sodium 140 mmol/L (136-145); Total Bilirubin 0.3 mg/dL (0.15-1.2); Total Protein 7.8 g/dL (6.6-8.7)
[2024-07-08 10:49] LABS: Aspartate Amino Transferase 19 U/L (0-32)
== END 2024-07-19 23:59 | disposition home or self-care (01) ==
PROVIDERS: Internal Medicine; PCP Family Medicine; Visit Provider Family Medicine
DX: Z08 Encounter for follow-up examination after completed treatment for malignant neoplasm (principal); Z85.118 Personal history of other malignant neoplasm of bronchus and lung; Z90.2 Acquired absence of lung [part of]; Z87.891 Personal history of nicotine dependence
CPT/HCPCS: 36415; 80053; 85025; 99213

== ENCOUNTER 2024-08-17 13:15 | Oncology outpatient (recurring) (ONCR) | payer MEDICARE, OTHER, SELFPAY ==
--- NOTE | 2024-07-27 07:00 | CT_ITS ---
WS: [email or web address] CT CHEST TECHNIQUE: Contrast enhanced CT of the chest with coronal and sagittal reformatted images. CLINICAL INFORMATION: adenocarcinoma of upper lobe of right lung COMPARISON: 12/31/2023 and 07/29/2023 DLP: 422.[address] scans at [facility] use at least one of these dose optimization techniques: automated exposure control; mA and/or kV adjustment per patient size (includes targeted exams where dose is matched to clinical indication); or iterative reconstruction. FINDINGS: Prior postoperative changes partial RIGHT upper lobe resection for neoplasm. Stable postoperative changes in the RIGHT upper lobe with parenchymal fibrosis unchanged in appearance. Increased soft tissue or lymph node along the RIGHT superior hilum measuring 1.9 x 1.7 cm. Some this may be postoperative but indeterminant recommend further evaluation with PET/CT or short interval follow-up with chest CT Stable RIGHT hilar lymph node measuring 13 mm. Stable volume loss in the RIGHT lung. Chronic emphysema. Stable RIGHT thyroid nodule measuring 2.6 x 1.9 cm. Ectatic ascending thoracic aorta measuring 3.8 cm is unchanged. Aortic calcification. Coronary calcification. No axillary lymphadenopathy. Fatty liver. Normal GE junction. Adrenal glands are normal. LEFT renal cyst 5.0 cm. Tiny esophageal hernia. Splenic artery calcification. Mild thoracic curve and kyphosis. Dorsal midline ossification posterior to the T11 vertebral body with moderate central canal stenosis. This is unchanged from the prior studies. CT/CT chest w con* [id number] IMPRESSION: 1. Stable postoperative changes partial RIGHT upper lobe resection. 2. Soft tissue thickening along the RIGHT suprahilum upper lobe bronchus appea rs increased since the prior examinations measuring 1.9 x 1.7 cm. This is indet erminate and recommend 3-month interval follow-up or further evaluation with PE T/CT. 3. No other significant interval changes. 4. Stable RIGHT hilar lymph node measuring 13 mm
[2024-07-27] MEDS: iohexol 350 mg/mL 500 mL Btl (per mL) IV (07:19)
[2024-07-29 11:10] LABS: Basophils # 0.1 10^3/uL (0.0-0.1); Basophils % 1.3 %; Eosinophils # 0.2 10^3/uL (0.0-0.8); Hematocrit 42.5 % (36-47); Lymphocytes # 1.6 10^3/uL (0.8-4.8); Lymphocytes % 24.9 %; Mean Corpuscular HGB Conc 31.3 g/dL (30-55); Mean Corpuscular Hemoglobin 28.2 pg (27-33); Mean Corpuscular Volume 90.2 fl (85-98); Monocytes # 0.4 10^3/uL (0.2-0.9); Neutrophils # 3.97 10^3/uL (1.8-7.7); Neutrophils % 63.5 %; Nucleated Red Blood Cells % 0 %; Platelet Count 272 10^3/cmm (157-399); Red Blood Count 4.71 10^6/uL (3.85-5.65); Red Cell Distribution Width 13.4 % (12.1-15.1); White Blood Count 6.26 10^3/uL (3.29-11.43)
[2024-07-29 11:25] LABS: Alanine Aminotransferase 17 U/L (0-33); Albumin Level 4.1 g/dL (3.5-5.2); Alkaline Phosphatase 65 U/L (35-105); Anion Gap 14.6 (5-19); Aspartate Amino Transferase 21 U/L (0-32); Blood Urea Nitrogen 17 mg/dL (8-23); Calcium 9.2 mg/dL (8.5-10.5); Carbon Dioxide 25 mmol/L (22-29); Chloride 106 mmol/L (98-107); Globulin 3.6 g/dL (1.3-4.6); Glucose 96 mg/dL (65-115); Osmolality Calculated 293 mOsm/kg (285-295); Potassium 4.6 mmol/L (3.5-5.1); Sodium 141 mmol/L (136-145); Total Bilirubin 0.4 mg/dL (0.15-1.2); Total Protein 7.7 g/dL (6.6-8.7)
[2024-07-29 11:27] LABS: Lactate Dehydrogenase 209 U/L (135-214)
--- NOTE | 2024-08-06 12:30 | PETR_ITS ---
PROCEDURE INFORMATION: Exam: PET/CT Skull Base to Mid-thigh Exam date and time: 08/06/2024 1:01 PM Age: 74 years old Clinical indication: Abnormal findings; Soft tissue thickening along the right suprahilum upper lobe bronchus appears increased since the prior examinations measuring 1.9 x 1.7 cm. Prior surgery; Surgery date: 6+ months; Surgery type: Right lung, HX of lung cancer; Additional info: Abnormal CT 07/27/24 LABS AND CLINICAL REPORTS: Glucose: 103 mg/dl Treatment strategy for malignancy (PET staging): Restaging (PS) TECHNIQUE: Imaging protocol: Following at least four-hour fasting and following the injection of radiopharmaceutical, low dose CT images were obtained. Then, PET images were obtained. Attenuation corrected images were constructed using the CT scan. Fused images of PET and CT were reviewed. The standardized uptake values (SUV) reported below are maximum values within a region of interest, expressed in gm/ml. Exam includes orbital meatal line to mid-thigh. SUV normalization method: BodyWeight Radiopharmaceutical: 11.9 mCi F-18 FDG (Fluorodeoxyglucose), IV. Time of imaging post radiopharmaceutical administration: 52 minutes Injection site: right ac COMPARISON: 1. CT chest w con* [id number] 07/27/2024 7:[address] chest w con* [id number] 12/31/2023 10:07 AM 3. PT PET Scan 09/01/2021 11:22 AM FINDINGS: Brain: Visualized brain has normal physiologic uptake. Paranasal sinuses: Chronic right maxillary sinus mucoperiosteal thickening with small area of low-level FDG uptake laterally and moderate fluid level. Otherwise clear. Pharynx: Symmetric FDG uptake at the palatine tonsillar regions is likely benign physiologic or inflammatory. Larynx: Symmetric uptake is likely benign physiologic activation. Lungs, pleura and trachea: Emphysematous change and right lung postsurgical change. FDG uptake at increased size right suprahilar thickening measuring approximately 2.4 cm on axial image 246 with SUV max 12.2. Paramediastinal left upper lobe nodule measures up to 1.5 cm on axial image 238 and shows low-level FDG uptake with SUV max 3.0, increased compared to August 2021 when it measured 1.2 cm and was not FDG avid. Mild dependent atelectasis. Bilateral bandlike atelectasis versus scarring. Heart: Normal physiologic uptake. Coronary arteries: Heavy coronary artery calcification. Mediastinal space: No abnormal uptake. Liver: No abnormal uptake. Diffuse hypoattenuation compatible with steatosis. Gallbladder and biliary ducts: No abnormal uptake. Pancreas: No abnormal uptake. Spleen: No abnormal uptake. Adrenal glands: No abnormal uptake. Kidneys and ureters: Normal physiologic uptake. Photopenic fluid density left renal cyst. Stomach and bowel: No abnormal uptake. Rectal anastomosis. Vasculature: No abnormal uptake. Heavy systemic atherosclerotic calcification without aortic aneurysm. Lymph nodes: Left hilar FDG uptake without discretely measurable lymph node shows SUV max 4.1 on axial image 240. Skeleton: Degenerative change along the axial skeletal system and shoulders. Proximal left humeral shaft postsurgical change. Right shoulder periarticular FDG uptake, to include linear FDG uptake along teres minor muscle, is likely inflammatory. Soft tissues: No abnormal uptake in the visualized head, neck, chest, abdomen, pelvis, and extremities. METRICS: Mediastinal blood pool: SUV mean 2.0 Liver uptake: SUV mean 2.4 PET/PET skull to thigh SUBS [id number] IMPRESSION: 1. Avid FDG uptake at right suprahilar soft tissue thickening suspicious for malignancy. 2. Mildly increased paramediastinal left upper lobe nodule now measuring up to 1.5 cm with low-level FDG uptake and mild focal left hilar FDG uptake. Findings raise concern for malignant nodule with left hilar lymph node metastasis. Alternatively, may represent acute inflammation of nodule with reactive lymph node. 3. Chronic right maxillary sinus sinusitis with fluid level possibly indicating acute component. 4. Additional chronic and incidental findings as above, to include hepatic steatosis and atherosclerosis with heavy coronary artery calcification.
== END 2024-08-18 23:59 | disposition home or self-care (01) ==
PROVIDERS: Internal Medicine; PCP Family Medicine; Visit Provider Nurse Practitioner Family
DX: Z53.9 Procedure and treatment not carried out, unspecified reason (principal)
CPT/HCPCS: 36415; 71260; 78815; 80053; 83615; 85025; 99213; 99214; A9552

== ENCOUNTER → 2024-08-26 12:17 | Outpatient (BNVA) | payer MEDICARE, OTHER, SELFPAY | PROVIDERS: PCP Family Medicine; Visit Provider Family Medicine | DX: M15.0 Primary generalized (osteo)arthritis (principal) | CPT/HCPCS: 80048 ==

== ENCOUNTER 2024-09-16 13:09 | Oncology outpatient (recurring) (ONCR) | payer MEDICARE, OTHER, SELFPAY ==
[2024-09-16 14:03] LABS: Basophils # 0.1 10^3/uL (0.0-0.1); Basophils % 0.9 %; Eosinophils # 0.2 10^3/uL (0.0-0.8); Eosinophils % 2.8 %; Hematocrit 41.8 % (36-47); Lymphocytes # 1.4 10^3/uL (0.8-4.8); Lymphocytes % 21.3 %; Mean Corpuscular HGB Conc 31.8 g/dL (30-55); Mean Corpuscular Hemoglobin 29.2 pg (27-33); Mean Corpuscular Volume 91.7 fl (85-98); Mean Platelet Volume 9.7 fL (7.4-10.4); Monocytes # 0.4 10^3/uL (0.2-0.9); Monocytes % 6.2 %; Neutrophils # 4.42 10^3/uL (1.8-7.7); Neutrophils % 68.3 %; Nucleated Red Blood Cells % 0 %; Platelet Count 304 10^3/cmm (157-399); Red Blood Count 4.56 10^6/uL (3.85-5.65); Red Cell Distribution Width 13.3 % (12.1-15.1); White Blood Count 6.47 10^3/uL (3.29-11.43)
[2024-09-16 14:21] LABS: Alanine Aminotransferase 12 U/L (0-33); Alkaline Phosphatase 60 U/L (35-105); Anion Gap 16.1 (5-19); Aspartate Amino Transferase 17 U/L (0-32); Blood Urea Nitrogen 17 mg/dL (8-23); Calcium 9.2 mg/dL (8.5-10.5); Carbon Dioxide 24 mmol/L (22-29); Chloride 103 mmol/L (98-107); Creatinine Clr Calc Pharmacy 56.0914; Globulin 3.4 g/dL (1.3-4.6); Glucose 93 mg/dL (65-115); Lactate Dehydrogenase 196 U/L (135-214); Osmolality Calculated 289 mOsm/kg (285-295); Potassium 4.1 mmol/L (3.5-5.1); Sodium 139 mmol/L (136-145); Total Bilirubin 0.4 mg/dL (0.15-1.2); Total Protein 7.4 g/dL (6.6-8.7)
== END 2024-09-18 23:59 | disposition home or self-care (01) ==
LOC: ONCMED 13:10
PROVIDERS: Internal Medicine; PCP Family Medicine; Visit Provider Nurse Practitioner Family
DX: C34.11 Malignant neoplasm of upper lobe, right bronchus or lung (principal); Z87.891 Personal history of nicotine dependence
CPT/HCPCS: 36415; 80053; 83615; 85025; 99213

== ENCOUNTER 2024-09-22 10:42 | Outpatient (CLI) | payer MEDICARE, OTHER, SELFPAY ==
[2024-09-22 11:02] VITALS: PULSE 63; RESP 18; O2SAT 96
[2024-09-22] MEDS: albuterol 2.5 mg/3 mL Neb INHALATION (11:02)
== END 2024-09-22 10:43 | disposition home or self-care (01) ==
LOC: RT 10:45
PROVIDERS: PCP Family Medicine; Visit Provider Internal Medicine
DX: Z98.890 Other specified postprocedural states (principal); C34.90 Malignant neoplasm of unspecified part of unspecified bronchus or lung; R59.0 Localized enlarged lymph nodes; J43.9 Emphysema, unspecified; Z87.891 Personal history of nicotine dependence; J98.8 Other specified respiratory disorders; R94.2 Abnormal results of pulmonary function studies
CPT/HCPCS: 94060; 94726; 94729; J7613

== ENCOUNTER → 2024-09-23 11:18 | Outpatient (BNVA) | payer MEDICARE, OTHER, SELFPAY | PROVIDERS: PCP Family Medicine; Visit Provider Student in an Organized Health Care Education/Training Program | DX: Z95.828 Presence of other vascular implants and grafts (principal); C34.11 Malignant neoplasm of upper lobe, right bronchus or lung | CPT/HCPCS: 99204 ==

== ENCOUNTER 2024-09-29 05:35 | Day surgery (SDC) | payer MEDICARE, OTHER, SELFPAY ==
[2024-09-29] VITALS (7 sets, daily range): BP systolic 116–170; BP diastolic 64–119; PULSE 57–80; RESP 14–20; TEMP 36.3–36.4; O2SAT 93–98; BMI 29.0
--- NOTE | 2024-09-29 05:56 | SC_ITS ---
WS: [id number] C-arm fluoroscopy for infusion port placement, 09/29/2024 Clinical Data: Port placement Comparison: None. Findings: Dr. Duarte inserted a right infusion catheter into the superior vena cava. SC/C-arm FL for CVA [id number] Impression: Right port placement.
[2024-09-29] MEDS: sodium chloride 0.9% 1,000 ML 30 ML IV (06:30)
--- NOTE | 2024-09-29 06:33 | ECG_ITS ---
[place] Test Date: 2024-09-29 Pat Name: Elizabeth Hernandez Department: Room: Gender: Female Reception Manager: : 1950 Requested By: Lisa Bloom Order Number: [id number] Kathleen MD: Diego Turner M.D. Measurements Intervals [place] Rate: 49 P: 19 VA: 157 QRS: -7 QRSD: 77 T: 36 QT: 409 QTc: 370 Interpretive Statements SINUS BRADYCARDIA LOW QRS VOLTAGE IN PRECORDIAL LEADS [QRS DEFLECTION < 1.0 mV IN CHEST LEADS] Compared to ECG 11/06/2021 06:26:51 Low QRS voltage now present Sinus rhythm no longer present Electronically Signed On 09-29-2024 22:16:34 CDT by Diego Turner M.D. [email or web address]
[2024-09-29] MEDS: vancomycin 2,000 MG/400 ML PIGGYBACK 200 MG IV (06:44)
--- NOTE | 2024-09-29 06:57 | P.ANESASSM_ITS ---
Pre-Anesthetic Assessment Height/Weight: Height 1.68 m Weight 81.647 kg Temp Pulse Resp BP Pulse Ox O2 Del Method 97.6 F 58 L 18 170/119 98 Room Air 09/29/24 06:49 09/29/24 06:49 09/29/24 06:49 09/29/24 06:49 09/29/24 06:49 09/29/24 06:49 Operation Date: 09/29/24 07:00 Proposed Procedures p Portacath Placement 56177, C34.11 Z95.828(Not Applicable) - Joaquin Duarte MD Familial anesthetic complications: None Was Beta Lashawn taken within 24 hours: Yes Was Clonidine taken within 24 hours: N/A Last intake: Intake Last Liquid Date 09/28/24 Last Liquid Time 23:30 Last Solid Date 09/28/24 Last Solid Time 18:00 Social No alcohol and No tobacco Exam alert, oriented x 3, clear to auscultation bilaterally and regular rate & rhythm Airway Mallampati: Class II Dentition: full Pulmonary Chronic Obstructive Pulmonary Disease and Sleep Apnea Lung Ca CV/HEM Hypertension GI Gastroesophageal Reflux Disease Anesthetic Plan ASA status: 4 Anesthesia: MAC Risk of > 500 ml blood loss (7ml/kg in children): No Medications/Allergies Home Medications ?Medication ?Instructions ?Recorded ?Confirmed ?Last Taken ?Type simvastatin 20 mg tablet 20 mg PO DAILY #90 tabs 05/2309/28/24 09/28/24 Rx albuterol sulfate 90 mcg/actuation 1 inh inhalation QI D PRN shortness 03/17/23 09/28/24 08/24/24 Rx aerosol inhaler (Ventolin HFA) of breath or wheezing # 8.5 grams metoprolol succinate 50 mg 75 mg (1.5 x 50 mg) PO LIZETH Y 90 06/04/24 09/28/24 09/29/24 Rx tablet,extended release 24 hr days #135 tabs fluticasone fur. 200 mcg-umeclid 1 inh inhalation Q24H 90 days #180 07/26/24 09/28/24 09/29/24 Rx 62.5 mcg-vilant 25 mcg ea inhalat.powder (Trelegy Ellipta) lisinopril 20 mg tablet 20 mg PO DAILY #90 tabs 05/12/1309/28/24 09/28/24 Rx meloxicam 15 mg tablet 15 mg PO DAILY #30 tabs 05/0 01/1309/28/24 09/28/24 Rx ondansetron HCl 4 mg tablet 4 mg PO Q6H PRN nausea and 09/17/24 09/28/24 Unknown Rx vomiting #30 tabs prochlorperazine maleate 10 mg 10 mg PO Q4H PRN mild n ausea #30 09/17/24 09/28/24 Unknown Rx tablet (Compazine) tabs Allergies Allergy/AdvReac Type Severity Reaction Status Date / Time nitrofurantoin (From Allergy Unknown Unknown Verified 09/23/24 11:19 Macrobid) Penicillins Allergy Unknown Unknown Verified 09/23/24 11:19 Sulfa (Sulfonamide Allergy Unknown Unknown Verified 09/23/24 11:19 Antibiotics) vancomycin Allergy ADR-Itching Verified 09/23/24 11:19 Current Medications Generic Name Dose Route Start Last Admin Trade Name Freq PRN Reason Stop Dose Admin Sodium Chloride 1,000 mls @ 30 mls/hr 09/29/24 06:00 09/29/24 06:30 Sodium Chloride 0.9% IV 09/30/24 05:59 30 mls/hr .Q24H EMILEE Administration Vancomycin HCl 2,000 mg in 400 mls @ 200 mls/hr 09/29/24 06:30 09/29/24 06:44 Vancocin IV 09/29/24 08:29 200 mls/hr ONCE ONE Administration PFSH Anesthesia Medical History Ileostomy present History of open sigmoidectomy 02/26 Dr June Family history of colon cancer History of colon polyps Non-small cell lung cancer Dyslipidemia COPD (chronic obstructive pulmonary disease) Thoracic aortic aneurysm LINDA (obstructive sleep apnea) Compliant with CPAP GERD (gastroesophageal reflux disease) HTN (hypertension) Surgical History Hx of exploratory laparotomy 02/26/23 Dr June Hx of colostomy 02/26 Dr June-end colostomy formation Hx of colonoscopy S/P thoracotomy (11/06/21) Thoracotomy with right upper lobe posterior segmentectomy S/P subtotal thyroidectomy (~1984) Left S/P shoulder surgery scope on the left Family History Mother Cancer Ovarian CA Hypertension Father Cancer Colon CA Brother Myocardial infarction CAD (coronary artery disease) Alcoholism Other Diabetes Denies family history of Clotting disorder Dementia Hyperlipidemia Psychiatric illness Chronic kidney disease (CKD) Suicide Anesthesia complication Bleeding disorder Lung disease Stroke Social History Smoking and tobacco/nicotine status: former use of tobacco/nicotine Quit status (tobacco/nicotine): has quit using Year quit tobacco: 2015 Former quit date comment: 1ppd X 46 years, started at age 19 Alcohol intake: current Alcohol intake frequency: holidays/special occasions only Data Anesthesia Cardiac Studies: Echocardiogram 06/06/23
--- NOTE | 2024-09-29 06:59 | W.PM.OPSUD ---
Surgery/Procedure H&P Update DATE OF PROCEDURE: September 29, 2024 DATE H&P PERFORMED: 09/23/24 H&P UPDATE INFORMATION: I have reviewed H&P completed within last 30 days, I have examined patient prior to procedure and No changes to prior documentation PLANNED PROCEDURE: Operation Date: 09/29/24 07:00 Proposed Procedures p Portacath Placement 34679, C34.11 Z95.828(Not Applicable) - Joaquin Duarte MD
[2024-09-29] MEDS: BUPivacaine 0.25% INJ 30 mL INJECTION (07:31)
[2024-09-29] MEDS: lidocaine-epi 1% PF 1:200,000 30 mL SDV INJECTION (07:31)
[2024-09-29] MEDS: heparin, porcine 1,000 unit/mL INJ 10 mL 6000 UNIT INJECTION (07:32)
--- NOTE | 2024-09-29 07:42 | PM.OP ---
Operative Report Date of procedure: September 29, 2024 Pre-op diagnosis: Lung cancer Post-op diagnosis: same Post-op findings: Tip at atriocaval junction confirmed with intraoperative fluoroscopy Procedure done: Port-a-cath placement. Intraoperative fluoroscopy. Implants: Port-a-cath Specimens removed/disposition: NA Pathology: none sent Surgeon: Joaquin Duarte MD Store Product Demonstrator: CARLOS Anesthesia: MAC Estimated blood loss (mL): 10 Complications: NA Findings: Tip at atriocaval junction confirmed with intraoperative fluoroscopy Condition: stable Disposition: same day Brief History: 74-year-old female who presented for port placement. Discussed risk and benefits and patient agreed to proceed with Port-A-Cath placement. Procedure: Patient was brought into the operating room and a timeout was carried out. Procedure was done under MAC. Patient was placed supine with the arms tucked and in Trendelenburg. Patient was prepped and draped in the usual sterile fashion. Using ultrasound guidance the right internal jugular vein was accessed. The left internal jugular vein was also visualized but the right side was deemed a better target. I was able to draw venous blood. A guidewire was then placed down to the atriocaval junction using fluoroscopy. I confirmed placement of the guidewire in the right internal jugular vein using intraoperative ultrasound. The finder needle was removed and the guidewire was secured. I then turned my attention to creating a pocket over the right chest. Make sure to locally infiltrated using plain lidocaine and bupivacaine at the site of the pocket and throughout the tunnel site. I confirmed adequate hemostasis at the pocket. I then proceeded to place the port that was already preassembled and flushed with heparinized saline and the chest pocket. I tunneled the catheter from the chest to the neck at the site where I accessed the internal jugular vein. I measured and adjusted the length of the catheter so it would reach the atrial caval junction. At this point, I used a dilator to dilate the tract into the internal jugular vein using fluoroscopy. I removed the guidewire and proceeded to thread the central venous catheter through the introducer. In the process, I removed the sheath as a completely pushed the catheter into the internal jugular vein. I then confirmed adequate placement of the catheter by performing intraoperative interpretation of fluoroscopy. The tip of the catheter was confirmed to be placed in the atriocaval junction. There were no kinks noted throughout the trajectory of the catheter. I then proceeded to test the port and was satisfied with its functionality. I proceeded to flushed the catheter without any issues. I then hep-locked the port. Skin was closed using deep dermal 3-0 Vicryl, subcuticular 4-0 Monocryl, and Dermabond. Patient was then transferred to PACU without any complications.
--- NOTE | 2024-09-29 08:55 | ANE.PACU2 ---
Inpatient post-anesthesia follow up: Airway intact: Yes Vital signs: Temperature 97.6 F Pulse Rate 58 Respiratory Rate 18 Blood Pressure 148/95 Pulse Oximetry 96 Oxygen Delivery Me thod Room Air Oxygen Flow Rate 8 Fraction of Inspir ed Oxygen Hydration adequate: Yes Nausea and vomiting: No Pain level: 1 Mental status: Baseline
== END 2024-09-29 08:55 | disposition home or self-care (01) ==
PROVIDERS: PCP Family Medicine; Visit Provider Student in an Organized Health Care Education/Training Program
PROC: (CPT 36561; principal; 2024-09-29 07:00)
DX: C34.11 Malignant neoplasm of upper lobe, right bronchus or lung (principal); J44.9 Chronic obstructive pulmonary disease, unspecified; I10 Essential (primary) hypertension; K21.9 Gastro-esophageal reflux disease without esophagitis; G47.33 Obstructive sleep apnea (adult) (pediatric); Z79.899 Other long term (current) drug therapy; Z88.0 Allergy status to penicillin; Z88.2 Allergy status to sulfonamides; Z88.1 Allergy status to other antibiotic agents; E78.5 Hyperlipidemia, unspecified; Z87.891 Personal history of nicotine dependence
CPT/HCPCS: 36561; 76000; 77001; 93005; C1788; J1200; J1644; J2704; J3010; J3372; J3490; J7030; J9999

== ENCOUNTER 2024-09-30 10:23 | Outpatient (CLI) | payer MEDICARE, OTHER, SELFPAY ==
--- NOTE | 2024-09-30 11:00 | MR_ITS ---
WS: [id number] MRI HEAD WITH CONTRAST TECHNIQUE: Sagittal T1, T2 axial, T2 axial FLAIR, axial susceptibility weighted imaging, axial diffusion weighted images, and coronal T2 images were obtained. Pre and post-T1 axial and post T1 coronal images. ADC and FSPGR images. CLINICAL INFORMATION: primary adenocarcinoma COMPARISON: None. FINDINGS: No evidence of restricted diffusion to suggest acute ischemia. Moderate small vessel changes with moderate parenchymal volume loss. Small vessel changes in the christiano. No hemosiderin on the susceptibility weighted images. Normal optic chiasm and pituitary infundibulum. Mild symmetric atrophy temporal lobes hippocampal formations. Normal posterior fossa. Normal vascular flow voids at the skull base. No extra-axial fluid collections. Paranasal sinuses and mastoid air cells are well aerated. Mild mucosal thickening in the mastoid tips. No evidence of enhancing intracranial metastatic disease. MR/MR head wo/w con [id number] IMPRESSION: 1. No evidence of restricted diffusion to suggest acute ischemia. 2. Moderate small vessel changes with moderate parenchymal volume loss. Small vessel changes in the christiano. 3. No evidence of enhancing intracranial metastatic disease. 4. No mass or mass effect. No hydrocephalus.
[2024-09-30] MEDS: gadobenate dimeglumine 20 mL vial 18 ML IV (11:44)
== END 2024-09-30 10:24 | disposition home or self-care (01) ==
PROVIDERS: PCP Family Medicine; Visit Provider Internal Medicine
DX: C34.11 Malignant neoplasm of upper lobe, right bronchus or lung (principal); R93.0 Abnormal findings on diagnostic imaging of skull and head, not elsewhere classified; G31.89 Other specified degenerative diseases of nervous system; H74.8X3 Other specified disorders of middle ear and mastoid, bilateral
CPT/HCPCS: 70553

== ENCOUNTER 2024-10-14 08:50 | Oncology outpatient (recurring) (ONCR) | payer MEDICARE, OTHER, SELFPAY ==
--- NOTE | 2024-09-20 14:18 | N.ONRAD NP_ITS ---
Radiation Oncology New Patient Visit Patient: Elizabeth Hernandez MR#: [id number] : 1950 Age: 74 Sex: Female Dictated by: Aren Hampton DO/ZORAN Date of Service: 09/20/2024 Referring Physician(s) : Dr: Richard Musa MD Diagnosis: C34.11 - malignant neoplasm of upper lobe, right bronchus or lung, Diagnosed 09/09/2024 (active) and C77.1 - secondary and unspecified malignant neoplasm of intrathoracic lymph nodes, Diagnosed 09/09/2024 (active). RUL +BX PD ADENOCRCINOMA, 2.4CM(12.2) RT SUPRAHILAR REGION, PRATEEK PARAMEDIASINAL LN(3), 10R/L AND 7 NON DIAGNOSTIC, , MRI BRAIN PENDING, PORT PLACEMENT PENDING, PRIOR RUL SEGMENTECOMY 11/06/2021 WITH CLOSE ANDREW 1.7MM/+ CLSI STAGE: NOW RECURRENT- [id number] ICD-10: C34.11, C77.1 Radiotherapy to date: Summary > No prior radiation therapy. 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 This is a pleasant 74-year-old female with recurrent adenocarcinoma of the lung. Patient had PD-ADENOCARCINOMA originally stage T1b N0 M0 RUL treated with posterior segmentectomy on 11/06/2021. Closest margin at that time was 1.7 mm. She was unable to undergo lobectomy due to poor pulmonary function. At that time the tumor measured 1.[address]s were negative until 07/27/2024 which showed an increased soft tissue thickening along the right supra hilar upper lobe bronchus. It had increased since prior examinations and it measured 1.9 x 1.7 cm. PET/CT on 08/06/2024 showed avid uptake in the right supra hilar area there was also increased paramediastinal PRATEEK nodule measuring 1.5 cm. It was previously not avid. BRONCHOSCOPY on 09/09/2024 showed a right upper lobe biopsy positive for adenocarcinoma of primary pulmonary origin. Stations 10R 10L and 7 were nondiagnostic. Patient is asymptomatic from her disease. She is scheduled for consult for port placement on September 23. We will schedule CT SIM after port placement. Patient has a significant positive family history of father dying at age 59 of colorectal rectal metastasis, mother dying of female organ disease at age 61 sister dying of appendiceal carcinoma at age 67, brother presently living with rectal carcinoma diagnosed at age 60 and multiple paternal aunts and uncles that had STERILE TECH and colon carcinoma. Current Medications: albuterol sulfate 90 mcg/actuation (Ventolin HFA) 1 inh inhalation QID PRN, kjulofjnmdz-ixtsgryjf-auaqjntc 200-62.5-25 mcg (Trelegy Ellipta) 1 inh inhalation Q24H 90 days, lisinopril 20 mg PO DAILY, meloxicam 15 mg PO DAILY, metoprolol succinate ER 75 mg (1.5 x 50 mg) PO DAILY 90 days, simvastatin 20 mg PO DAILY Allergies: nitrofurantoin (From Macrobid) Allergy (Unknown, Verified 09/16/24 14:07) Unknown, Penicillins Allergy (Unknown, Verified 09/16/24 14:07) Unknown, Sulfa (Sulfonamide Antibiotics) Allergy (Unknown, Verified 09/16/24 14:07) Unknown, vancomycin Allergy (Verified 09/16/24 14:07) ADR-Itching Medical History: No history of collagen vascular disease. No previous radiation therapy. Surgical History: Hx of exploratory laparotomy 02/26/23 Dr June, Hx of colostomy 02/26 Dr June-end colostomy formation, Hx of colonoscopy, S/P thoracotomy (11/06/21) Thoracotomy with right upper lobe posterior segmentectomy, S/P subtotal thyroidectomy (~1984) Left, S/P shoulder surgery, scope on the left Family History: Mother Cancer Ovarian CA Hypertension Father Cancer Colon CA Brother Myocardial infarction CAD (coronary artery disease) Alcoholism Other Diabetes Denies family history of Clotting disorder Dementia Hyperlipidemia Psychiatric illness Chronic kidney disease (CKD) Suicide Anesthesia complication Bleeding disorder Lung disease Stroke Social History: Smoking and tobacco/nicotine status: former use of tobacco/nicotine Quit status (tobacco/nicotine): has quit using Year quit tobacco: 2015 Former quit date comment: 1ppd X 46 years, started at age 19 Alcohol intake: current Alcohol intake frequency: holidays/special occasions only Current Complaints / Review of Systems: . As noted above Vital Signs: Performed on 09/20/2024 1:05 PM BMI - 29.537 kg/m2 (high), Height - 66 in, Weight - 183 lbs, Temperature - 97.2 f, Pulse - 62 /min, Respiration - 17 /min, O2 Sat - 95 % (low), Pain - 0, Fatigue - 0 and BP - 187/ 95 mm(hg)(high). Physical Exam: Patient alert and oriented and answers questions appropriately. Head is normocephalic without masses. Neck supple thyroid midline no cervical adenopathy. Lungs are clear to auscultation heart is regular rate and rhythm. Abdomen soft nontender with no hepatosplenomegaly. Extremities intact x 4. Vertebral exam shows no bony tenderness. Neurological no focal defects. 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 Lab: Imaging: See HPI Impression: C34.11 - malignant neoplasm of upper lobe, right bronchus or lung, Diagnosed 09/09/2024 (active) and C77.1 - secondary and unspecified malignant neoplasm of intrathoracic lymph nodes, Diagnosed 09/09/2024 (active). RUL +BX PD ADENOCRCINOMA, 2.4CM(12.2) RT SUPRAHILAR REGION, PRATEEK PARAMEDIASINAL LN(3), 10R/L AND 7 NON DIAGNOSTIC, , MRI BRAIN PENDING, PORT PLACEMENT PENDING, PRIOR RUL SEGMENTECOMY 11/06/2021 WITH CLOSE ANDREW 1.7MM/+ CLSI STAGE: NOW RECURRENT- [id number] ICD-10: C34.11, C77.1 PLAN: Options were discussed with the patient and partner. Questions answered. Patient to have consult for port placement on September [address] simulation after port placement Plan approximately 6000 cGy in conventional IMRT fractionation along with weekly chemotherapy. Side effects explained then discussed. Combined chemotherapy to include carboplatin/Taxol with radiation followed by [facility] Signed by: 09/20/2024 2:16:56 PM <<Signature on File>> Time spent with patient: 60 MINUTES CPT Code: CPT Code:
[2024-10-06 13:34] LABS: Basophils # 0.1 10^3/uL (0.0-0.1); Basophils % 0.7 %; Eosinophils # 0.3 10^3/uL (0.0-0.8); Eosinophils % 3.9 %; Hematocrit 41.2 % (36-47); Lymphocytes # 1.4 10^3/uL (0.8-4.8); Mean Corpuscular HGB Conc 32.3 g/dL (30-55); Mean Corpuscular Hemoglobin 28.5 pg (27-33); Mean Corpuscular Volume 88.2 fl (85-98); Monocytes # 0.5 10^3/uL (0.2-0.9); Monocytes % 6.8 %; Neutrophils # 5.16 10^3/uL (1.8-7.7); Neutrophils % 69.2 %; Nucleated Red Blood Cells % 0 %; Platelet Count 246 10^3/cmm (157-399); Red Blood Count 4.67 10^6/uL (3.85-5.65); Red Cell Distribution Width 13.7 % (12.1-15.1); White Blood Count 7.46 10^3/uL (3.29-11.43)
[2024-10-06 13:53] LABS: Alanine Aminotransferase 19 U/L (0-33); Alkaline Phosphatase 62 U/L (35-105); Aspartate Amino Transferase 23 U/L (0-32); Blood Urea Nitrogen 22 mg/dL (8-23); Calcium 9.6 mg/dL (8.5-10.5); Carbon Dioxide 26 mmol/L (22-29); Chloride 103 mmol/L (98-107); Globulin 3.4 g/dL (1.3-4.6); Glucose 116 mg/dL (65-115); Osmolality Calculated 294 mOsm/kg (285-295); Sodium 140 mmol/L (136-145); Total Bilirubin 0.4 mg/dL (0.15-1.2); Total Protein 7.4 g/dL (6.6-8.7)
[2024-10-06 13:57] LABS: Creatinine Clr Calc Pharmacy 50.4626
[2024-10-07 09:14] VITALS: BP 177/99; PULSE 89; RESP 16; TEMP 36.4; O2SAT 49
[2024-10-07] MEDS: sodium chloride 0.9% 250 ML 75 ML IV (11:39)
[2024-10-07] MEDS: acetaminophen 325 mg Tablet 650 MG PO (11:39)
[2024-10-07] MEDS: diphenhydrAMINE 50 mg/mL SDV 1mL 25 MG IVP (11:40)
[2024-10-07] MEDS: famotidine 20 mg/2 mL INJ IVP (11:44)
[2024-10-07] MEDS: palonosetron 0.25 mg/5 mL SDV IVP (11:45)
[2024-10-07] MEDS: dexamethasone 20 MG in sodium chloride 0.9% 50 ML 250 MG IV (11:52)
[2024-10-07] MEDS: PACLitaxeL 100 MG in sodium chloride 0.9%(non-DEHP) 250 ML 266.67 MG IV (12:40)
[2024-10-07] MEDS: CARBOplatin 170 MG in sodium chloride 0.9% 500 ML 517 MG IV (14:06)
[2024-10-07 15:15] VITALS: BP 133/88; PULSE 58; RESP 18; TEMP 36.1; O2SAT 96
[2024-10-13 13:45] LABS: Basophils # 0.1 10^3/uL (0.0-0.1); Eosinophils # 0.2 10^3/uL (0.0-0.8); Eosinophils % 3.4 %; Hematocrit 40.9 % (36-47); Lymphocytes # 1.3 10^3/uL (0.8-4.8); Lymphocytes % 18.7 %; Mean Corpuscular HGB Conc 31.8 g/dL (30-55); Mean Corpuscular Hemoglobin 28.6 pg (27-33); Mean Corpuscular Volume 90.1 fl (85-98); Mean Platelet Volume 9.8 fL (7.4-10.4); Monocytes # 0.4 10^3/uL (0.2-0.9); Monocytes % 5.3 %; Neutrophils % 70.6 %; Nucleated Red Blood Cells % 0 %; Platelet Count 264 10^3/cmm (157-399); Red Blood Count 4.54 10^6/uL (3.85-5.65); Red Cell Distribution Width 13.3 % (12.1-15.1)
[2024-10-13 14:03] LABS: Alanine Aminotransferase 13 U/L (0-33); Albumin Level 3.9 g/dL (3.5-5.2); Alkaline Phosphatase 57 U/L (35-105); Anion Gap 15.7 (5-19); Aspartate Amino Transferase 16 U/L (0-32); Blood Urea Nitrogen 23 mg/dL (8-23); Calcium 9.2 mg/dL (8.5-10.5); Carbon Dioxide 24 mmol/L (22-29); Chloride 103 mmol/L (98-107); Creatinine Clr Calc Pharmacy 50.4626; Globulin 3.4 g/dL (1.3-4.6); Glucose 95 mg/dL (65-115); Osmolality Calculated 289 mOsm/kg (285-295); Potassium 4.7 mmol/L (3.5-5.1); Sodium 138 mmol/L (136-145); Total Bilirubin 0.7 mg/dL (0.15-1.2); Total Protein 7.3 g/dL (6.6-8.7)
[2024-10-14] MEDS: acetaminophen 325 mg Tablet 650 MG PO (10:06)
[2024-10-14] MEDS: sodium chloride 0.9% 250 ML 75 ML IV (10:07)
[2024-10-14] MEDS: diphenhydrAMINE 50 mg/mL SDV 1mL 25 MG IVP (10:12)
[2024-10-14] MEDS: famotidine 20 mg/2 mL INJ IVP (10:17)
[2024-10-14] MEDS: palonosetron 0.25 mg/5 mL SDV IVP (10:23)
[2024-10-14 10:29] VITALS: BP 176/87; PULSE 52; TEMP 36.3; O2SAT 90
[2024-10-14] MEDS: dexamethasone 20 MG in sodium chloride 0.9% 50 ML 220 MG IV (11:22)
[2024-10-14] MEDS: PACLitaxeL 100 MG in sodium chloride 0.9%(non-DEHP) 250 ML 266.67 MG IV (12:03)
[2024-10-14] MEDS: CARBOplatin 170 MG in sodium chloride 0.9% 500 ML 517 MG IV (13:34)
[2024-10-14 15:04] VITALS: BP 173/99; PULSE 65; TEMP 36.1; O2SAT 91
== END 2024-10-14 23:59 | disposition home or self-care (01) ==
PROVIDERS: Nurse Practitioner; PCP Family Medicine; Visit Provider Internal Medicine
DX: Z53.9 Procedure and treatment not carried out, unspecified reason (principal); Z08 Encounter for follow-up examination after completed treatment for malignant neoplasm; Z85.118 Personal history of other malignant neoplasm of bronchus and lung; Z87.891 Personal history of nicotine dependence; Z90.2 Acquired absence of lung [part of]; R03.0 Elevated blood-pressure reading, without diagnosis of hypertension; C34.11 Malignant neoplasm of upper lobe, right bronchus or lung; R59.0 Localized enlarged lymph nodes
CPT/HCPCS: 36415; 77300; 77301; 77334; 77338; 77386; 77470; 80053; 85025; 96367; 96375; 96413; 96417; 99205; 99214; 99215; J1100; J1200; J2469; J3490; J7040; J7050; J9045; J9267; J9999

== ENCOUNTER 2024-10-18 12:54 | Oncology outpatient (recurring) (ONCR) | payer MEDICARE, OTHER, SELFPAY | END 2024-10-18 23:59 | disposition home or self-care (01) | PROVIDERS: PCP Family Medicine; Visit Provider Radiology Radiation Oncology | DX: Z51.0 Encounter for antineoplastic radiation therapy (principal); C34.11 Malignant neoplasm of upper lobe, right bronchus or lung; C77.1 Secondary and unspecified malignant neoplasm of intrathoracic lymph nodes | CPT/HCPCS: 77336; 77386; 99024 ==

== ENCOUNTER 2024-11-04 09:00 | Oncology outpatient (recurring) (ONCR) | payer MEDICARE, OTHER, SELFPAY ==
--- NOTE | 2024-10-19 14:21 | ONCRAD TMN_ITS ---
Radiation Oncology Weekly Treatment Management Patient: David Porter MR#: [id number] : 1950> Attending Physician: Benny Hampton Date of Service: 10/19/2024 Referring Physician(s) : Diagnosis: C34.11 - Malignant neoplasm of upper lobe, right bronchus or lung, Diagnosed 09/09/2024 (Active) C77.1 - Secondary and unspecified malignant neoplasm of intrathoracic lymph nodes, Diagnosed 09/09/2024 (Active) Radiotherapy to date: Course: Rt Lung 2024, Treatment Site: RT Lung, Ref. ID: [id number], Energy: 6X, Dose/Fx (cGy): 200, #Fx: 30, Dose Correction (cGy): 0, Total Dose Delivered (cGy): 2,000, Start Date: 10/06/2024, Elapsed Days: 13 Reason for visit: The patient is being seen today as part of their regularly scheduled weekly on treatment visits to assess for acute toxicities from radiotherapy. Review of Systems: Complains of some mild constipation which she can easily treat she states. She is also keeping hydrated. Vital Signs: Performed on 10/19/2024 1:31 PM BMI - 29.795 kg/m2 (high), Height - 66 in, Weight - 184.6 lbs, Temperature - 97.7 f, Pulse - 56 /min (low), Respiration - 18 /min, O2 Sat - 99 %, Pain - 0, Fatigue - 0 and BP - 175/ 97 mm(hg)(high). Physical Exam: AAO x3. Skin intact. Skin tugor adequate Imaging: Radiation therapy imaging related to accurate target localization (i.e. KV, MV and CBCT) was reviewed. Appropriate changes, if any, were made to ensure treatment accuracy. Plan: Continue XRT. Address constipation as needed Signed by: Benny Hampton 10/19/2024 2:19:36 PM
[2024-10-20 13:27] LABS: Hematocrit 38.2 % (36-47); Hemoglobin 12.40 g/dL (11.27-16.99); Mean Corpuscular HGB Conc 32.5 g/dL (30-55); Mean Corpuscular Hemoglobin 29.2 pg (27-33); Mean Corpuscular Volume 90.1 fl (85-98); Nucleated Red Blood Cells % 0 %; Platelet Count 249 10^3/cmm (157-399); Red Blood Count 4.24 10^6/uL (3.85-5.65); White Blood Count 4.59 10^3/uL (3.29-11.43)
[2024-10-20 13:45] LABS: Alanine Aminotransferase 13 U/L (0-33); Albumin Level 3.8 g/dL (3.5-5.2); Alkaline Phosphatase 59 U/L (35-105); Anion Gap 15.1 (5-19); Aspartate Amino Transferase 16 U/L (0-32); Blood Urea Nitrogen 20 mg/dL (8-23); Calcium 9.0 mg/dL (8.5-10.5); Carbon Dioxide 25 mmol/L (22-29); Chloride 101 mmol/L (98-107); Globulin 3.3 g/dL (1.3-4.6); Glucose 141 mg/dL (65-115); Osmolality Calculated 289 mOsm/kg (285-295); Potassium 4.1 mmol/L (3.5-5.1); Sodium 137 mmol/L (136-145); Total Protein 7.1 g/dL (6.6-8.7)
[2024-10-21] MEDS: diphenhydrAMINE 50 mg/mL SDV 1mL 25 MG IVP (10:07)
[2024-10-21] MEDS: PACLitaxeL 100 MG in sodium chloride 0.9%(non-DEHP) 250 ML 266.67 MG IV (11:21)
[2024-10-21] MEDS: CARBOplatin 180 MG in sodium chloride 0.9% 500 ML 518 MG IV (12:47)
[2024-10-21 14:10] VITALS: BP 147/76; PULSE 69; RESP 17; TEMP 36; O2SAT 97
--- NOTE | 2024-10-26 14:04 | ONCRAD TMN_ITS ---
Radiation Oncology Weekly Treatment Management Patient: Elizabeth Hernandez MR#: [id number] : 1950 Attending Physician: Dr. Zenon Jenkins Date of Service: 10/26/2024 Referring Physician(s) : Diagnosis: C34.11 - Malignant neoplasm of upper lobe, right bronchus or lung, Diagnosed 09/09/2024 (Active) C77.1 - Secondary and unspecified malignant neoplasm of intrathoracic lymph nodes, Diagnosed 09/09/2024 (Active) Radiotherapy to date: Course: Rt Lung 2024, Treatment Site: RT Lung, Ref. ID: [id number], Energy: 6X, Dose/Fx (cGy): 200, #Fx: 14 30, Dose Correction (cGy): 0, Total Dose Delivered (cGy): 2,800, Start Date: 10/06/2024, Elapsed Days: 20 Reason for visit: The patient is being seen today as part of their regularly scheduled weekly on treatment visits to assess for acute toxicities from radiotherapy. Review of Systems: Doing well. Taste altered. Swallowing ok. Breathing ok. Golfing. Not smoking. Vital Signs: Performed on 10/26/2024 1:45 PM BMI - 29.666 kg/m2 (high), Height - 66 in, Weight - 183.8 lbs, Temperature - 97.4 f, Pulse - 71 /min, Respiration - 17 /min, O2 Sat - 97 %, Pain - 0, Fatigue - 0 and BP - 144/ 79 mm(hg)(high/). Physical Exam: omitted. Imaging: Radiation therapy imaging related to accurate target localization (i.e. KV, MV and CBCT) was reviewed. Appropriate changes, if any, were made to ensure treatment accuracy. Plan: Good tolerance of treatment. Continue as planned. Signed by: Dr. Zenon Jenkins 10/26/2024 2:02:54 PM
[2024-10-27 13:32] LABS: Hematocrit 38.3 % (36-47); Hemoglobin 12.50 g/dL (11.27-16.99); Mean Corpuscular HGB Conc 32.6 g/dL (30-55); Mean Corpuscular Hemoglobin 29.1 pg (27-33); Mean Corpuscular Volume 89.3 fl (85-98); Nucleated Red Blood Cells % 0 %; Platelet Count 257 10^3/cmm (157-399); Red Blood Count 4.29 10^6/uL (3.85-5.65); White Blood Count 5.51 10^3/uL (3.29-11.43)
[2024-10-27 13:47] LABS: Alanine Aminotransferase 15 U/L (0-33); Albumin Level 3.9 g/dL (3.5-5.2); Alkaline Phosphatase 54 U/L (35-105); Anion Gap 17.5 (5-19); Aspartate Amino Transferase 17 U/L (0-32); Blood Urea Nitrogen 29 mg/dL (8-23); Calcium 9.2 mg/dL (8.5-10.5); Carbon Dioxide 23 mmol/L (22-29); Chloride 102 mmol/L (98-107); Creatinine Clr Calc Pharmacy 50.3715; Globulin 3.2 g/dL (1.3-4.6); Glucose 146 mg/dL (65-115); Osmolality Calculated 294 mOsm/kg (285-295); Potassium 4.5 mmol/L (3.5-5.1); Sodium 138 mmol/L (136-145); Total Protein 7.1 g/dL (6.6-8.7)
[2024-10-28] MEDS: diphenhydrAMINE 50 mg/mL SDV 1mL 25 MG IVP (09:41)
[2024-10-28] MEDS: PACLitaxeL 100 MG in sodium chloride 0.9%(non-DEHP) 250 ML 266.67 MG IV (10:48)
[2024-10-28] MEDS: CARBOplatin 170 MG in sodium chloride 0.9% 500 ML 517 MG IV (12:20)
[2024-10-28 13:33] VITALS: BP 165/79; PULSE 77; RESP 16; TEMP 36; O2SAT 97
--- NOTE | 2024-11-02 16:53 | ONCRAD TMN_ITS ---
Radiation Oncology Weekly Treatment Management Patient: Elizabeth Hernandez MR#: [id number] : 1950 Attending Physician: Dr. Zenon Jenkins Date of Service: 11/02/2024 Referring Physician(s) : Diagnosis: C34.11 - Malignant neoplasm of upper lobe, right bronchus or lung, Diagnosed 09/09/2024 (Active) C77.1 - Secondary and unspecified malignant neoplasm of intrathoracic lymph nodes, Diagnosed 09/09/2024 (Active) Radiotherapy to date: Course: Rt Lung 2024, Treatment Site: RT Lung, Ref. ID: [id number], Energy: 6X, Dose/Fx (cGy): 200, #Fx: , Dose Correction (cGy): 0, Total Dose Delivered (cGy): 3,800, Start Date: 10/06/2024, Elapsed Days: 27 Reason for visit: The patient is being seen today as part of their regularly scheduled weekly on treatment visits to assess for acute toxicities from radiotherapy. Review of Systems: Generally ok. Eating ok. Breathing ok. Sleeping ok. No sore htroat Vital Signs: Performed on 11/02/2024 1:23 PM BMI - 29.537 kg/m2 (high), Height - 66 in, Weight - 183 lbs, Temperature - 97.7 f, Pulse - 69 /min, Respiration - 17 /min, O2 Sat - 96 %, Pain - 0, Fatigue - 0 and BP - 146/ 68 mm(hg)(high/). Physical Exam: omitted Imaging: Radiation therapy imaging related to accurate target localization (i.e. KV, MV and CBCT) was reviewed. Appropriate changes, if any, were made to ensure treatment accuracy. Plan: good tolerance of treatment, Continue as planned. Signed by: Dr. Zenon Jenkins 11/02/2024 4:52:37 PM
[2024-11-03 13:03] LABS: Hematocrit 35.8 % (36-47); Hemoglobin 11.50 g/dL (11.27-16.99); Mean Corpuscular HGB Conc 32.1 g/dL (30-55); Mean Corpuscular Hemoglobin 29.0 pg (27-33); Mean Corpuscular Volume 90.4 fl (85-98); Nucleated Red Blood Cells % 0 %; Platelet Count 147 10^3/cmm (157-399); Red Blood Count 3.96 10^6/uL (3.85-5.65); White Blood Count 4.62 10^3/uL (3.29-11.43)
[2024-11-03 13:19] LABS: Alanine Aminotransferase 16 U/L (0-33); Albumin Level 4.0 g/dL (3.5-5.2); Alkaline Phosphatase 52 U/L (35-105); Anion Gap 15.4 (5-19); Aspartate Amino Transferase 18 U/L (0-32); Blood Urea Nitrogen 25 mg/dL (8-23); Calcium 9.1 mg/dL (8.5-10.5); Carbon Dioxide 24 mmol/L (22-29); Chloride 105 mmol/L (98-107); Creatinine Clr Calc Pharmacy 55.6543; Globulin 2.7 g/dL (1.3-4.6); Glucose 99 mg/dL (65-115); Osmolality Calculated 294 mOsm/kg (285-295); Potassium 4.4 mmol/L (3.5-5.1); Sodium 140 mmol/L (136-145); Total Protein 6.7 g/dL (6.6-8.7)
[2024-11-04] MEDS: diphenhydrAMINE 50 mg/mL SDV 1mL 25 MG IVP (09:31)
[2024-11-04] MEDS: PACLitaxeL 100 MG in sodium chloride 0.9%(non-DEHP) 250 ML 266.67 MG IV (10:23)
[2024-11-04] MEDS: CARBOplatin 190 MG in sodium chloride 0.9% 500 ML 519 MG IV (11:27)
[2024-11-04 12:39] VITALS: BP 138/66; PULSE 64; RESP 18
== END 2024-11-04 23:59 | disposition home or self-care (01) ==
PROVIDERS: Internal Medicine; Nurse Practitioner; PCP Family Medicine; Visit Provider Radiology Radiation Oncology
DX: Z53.9 Procedure and treatment not carried out, unspecified reason; Z51.11 Encounter for antineoplastic chemotherapy; Z51.0 Encounter for antineoplastic radiation therapy; C34.11 Malignant neoplasm of upper lobe, right bronchus or lung; I10 Essential (primary) hypertension; Z79.52 Long term (current) use of systemic steroids; Z79.899 Other long term (current) drug therapy; Z87.891 Personal history of nicotine dependence; Z79.633 Long term (current) use of mitotic inhibitor
CPT/HCPCS: 36591; 77336; 77386; 80053; 83615; 85025; 96367; 96375; 96413; 96417; 99024; 99213; 99214; J1100; J1200; J2469; J3490; J7040; J7050; J9045; J9267; J9999

== ENCOUNTER 2024-11-18 09:00 | Oncology outpatient (recurring) (ONCR) | payer MEDICARE, OTHER, SELFPAY ==
--- NOTE | 2024-11-09 13:48 | ONCRAD TMN_ITS ---
Radiation Oncology Weekly Treatment Management Patient: David Porter MR#: [id number] : 1950> Attending Physician: Benny Hampton Date of Service: 11/09/2024 Referring Physician(s) : Diagnosis: C34.11 - Malignant neoplasm of upper lobe, right bronchus or lung, Diagnosed 09/09/2024 (Active) C77.1 - Secondary and unspecified malignant neoplasm of intrathoracic lymph nodes, Diagnosed 09/09/2024 (Active) Radiotherapy to date: Course: Rt Lung 2024, Treatment Site: RT Lung, Ref. ID: [id number], Energy: 6X, Dose/Fx (cGy): 200, #Fx: 24 / 30, Dose Correction (cGy): 0, Total Dose Delivered (cGy): 4,800, Start Date: 10/06/2024, Elapsed Days: 34 Reason for visit: The patient is being seen today as part of their regularly scheduled weekly on treatment visits to assess for acute toxicities from radiotherapy. Review of Systems: No problems other than pain around port. No signs of infection. Chemo . Labs adequate Vital Signs: Performed on 11/09/2024 12:51 PM BMI - 29.602 kg/m2 (high), Height - 66 in, Weight - 183.4 lbs, Temperature - 96.7 f, Pulse - 97 /min, Respiration - 18 /min, O2 Sat - 100 %, Pain - 0, Fatigue - 0 and BP - 152/ 89 mm(hg)(high/). Physical Exam: AAOx3. Skin intact. Skin around port shows no signs of infection. Imaging: Radiation therapy imaging related to accurate target localization (i.e. KV, MV and CBCT) was reviewed. Appropriate changes, if any, were made to ensure treatment accuracy. Plan: continue XRT Chemotherapy on Signed by: Benny Hampton 11/09/2024 1:47:13 PM
[2024-11-10 14:12] LABS: Hematocrit 36.3 % (36-47); Hemoglobin 11.60 g/dL (11.27-16.99); Mean Corpuscular HGB Conc 32.0 g/dL (30-55); Mean Corpuscular Hemoglobin 28.9 pg (27-33); Mean Corpuscular Volume 90.5 fl (85-98); Nucleated Red Blood Cells % 0 %; Platelet Count 126 10^3/cmm (157-399); Red Blood Count 4.01 10^6/uL (3.85-5.65); White Blood Count 4.22 10^3/uL (3.29-11.43)
[2024-11-10 14:28] LABS: Alanine Aminotransferase 15 U/L (0-33); Albumin Level 3.9 g/dL (3.5-5.2); Alkaline Phosphatase 57 U/L (35-105); Anion Gap 18.4 (5-19); Aspartate Amino Transferase 16 U/L (0-32); Blood Urea Nitrogen 28 mg/dL (8-23); Calcium 8.9 mg/dL (8.5-10.5); Carbon Dioxide 22 mmol/L (22-29); Chloride 105 mmol/L (98-107); Globulin 3.1 g/dL (1.3-4.6); Glucose 133 mg/dL (65-115); Osmolality Calculated 299 mOsm/kg (285-295); Potassium 4.4 mmol/L (3.5-5.1); Sodium 141 mmol/L (136-145); Total Protein 7.0 g/dL (6.6-8.7)
[2024-11-11] MEDS: diphenhydrAMINE 50 mg/mL SDV 1mL 25 MG IVP (10:20)
[2024-11-11] MEDS: PACLitaxeL 100 MG in sodium chloride 0.9%(non-DEHP) 250 ML 266.67 MG IV (10:55)
[2024-11-11] MEDS: CARBOplatin 150 MG in sodium chloride 0.9% 500 ML 515 MG IV (12:09)
--- NOTE | 2024-11-16 13:58 | ONCRAD TMN_ITS ---
Radiation Oncology Weekly Treatment Management Patient: Elizabeth Hernandez MR#: [id number] : 1950 Attending Physician: Dr. Benny Hampton Date of Service: 11/16/2024 Referring Physician(s) : Diagnosis: C34.11 - Malignant neoplasm of upper lobe, right bronchus or lung, Diagnosed 09/09/2024 (Active) C77.1 - Secondary and unspecified malignant neoplasm of intrathoracic lymph nodes, Diagnosed 09/09/2024 (Active) Radiotherapy to date: Course: Rt Lung 2024, Treatment Site: RT Lung, Ref. ID: [id number], Energy: 6X, Dose/Fx (cGy): 200, #Fx: , Dose Correction (cGy): 0, Total Dose Delivered (cGy): 5,800, Start Date: 10/06/2024, End Date: 11/16/2024, Elapsed Days: 41 Reason for visit: The patient is being seen today as part of their regularly scheduled weekly on treatment visits to assess for acute toxicities from radiotherapy. Review of Systems: Completes therapy tomorrow. She is fatigued but understandably so with the temperatures. She still golfs on Sundays. Vital Signs: Performed on 11/16/2024 1:38 PM BMI - 29.44 kg/m2 (high), Height - 66 in, Weight - 182.4 lbs, Temperature - 98.2 f, Pulse - 98 /min, Respiration - 17 /min, O2 Sat - 98 %, Pain - 0, Fatigue - 0 and BP - 161/ 95 mm(hg)(high). Physical Exam: AAOx3. Skin intact. No intercostal retraction noted Imaging: Radiation therapy imaging related to accurate target localization (i.e. KV, MV and CBCT) was reviewed. Appropriate changes, if any, were made to ensure treatment accuracy. Plan: Continue XRT Completes treatment tomorrow. RTC in 1 month or sooner if need be. Signed by: Benny Hampton 11/16/2024 1:56:46 PM
[2024-11-17 13:16] LABS: Hematocrit 32.1 % (36-47); Hemoglobin 10.60 g/dL (11.27-16.99); Mean Corpuscular HGB Conc 33.0 g/dL (30-55); Mean Corpuscular Hemoglobin 29.4 pg (27-33); Mean Corpuscular Volume 89.2 fl (85-98); Nucleated Red Blood Cells % 0 %; Platelet Count 181 10^3/cmm (157-399); Red Blood Count 3.60 10^6/uL (3.85-5.65); White Blood Count 2.40 10^3/uL (3.29-11.43)
[2024-11-17 13:36] LABS: Alanine Aminotransferase 12 U/L (0-33); Albumin Level 3.7 g/dL (3.5-5.2); Alkaline Phosphatase 52 U/L (35-105); Anion Gap 17.0 (5-19); Aspartate Amino Transferase 14 U/L (0-32); Blood Urea Nitrogen 19 mg/dL (8-23); Calcium 9.0 mg/dL (8.5-10.5); Carbon Dioxide 23 mmol/L (22-29); Chloride 105 mmol/L (98-107); Creatinine Clr Calc Pharmacy 50.4626; Globulin 3.4 g/dL (1.3-4.6); Glucose 123 mg/dL (65-115); Osmolality Calculated 296 mOsm/kg (285-295); Potassium 4.0 mmol/L (3.5-5.1); Sodium 141 mmol/L (136-145); Total Protein 7.1 g/dL (6.6-8.7)
--- NOTE | 2024-11-17 14:07 | N.ONRD TS_ITS ---
Radiation Oncology Treatment Summary Patient: Elizabeth Hernandez MR#: [id number] : 1950 Age: 74 Sex: Female Dictated by: Benny Hampton Date of Service: 11/17/2024 Referring Physician(s) : Dr Musa Diagnosis: C34.11 - Malignant neoplasm of upper lobe, right bronchus or lung, Diagnosed 09/09/2024 (Active) C77.1 - Secondary and unspecified malignant neoplasm of intrathoracic lymph nodes, Diagnosed 09/09/2024 (Active) Radiotherapy to Date: Course: Rt Lung 2024, Treatment Site: RT Lung, Ref. ID: [id number], Energy: 6X, Dose/Fx (cGy): 200, #Fx: , Dose Correction (cGy): 0, Total Dose Delivered (cGy): 6,000, Start Date: 10/06/2024, End Date: 11/17/2024, Elapsed Days: 42 CLINICAL HX: C34.11 - malignant neoplasm of upper lobe, right bronchus or lung, Diagnosed 09/09/2024 (active) and C77.1 - secondary and unspecified malignant neoplasm of intrathoracic lymph nodes, Diagnosed 09/09/2024 (active). RUL +BX PD ADENOCRCINOMA, 2.4CM(12.2) RT SUPRAHILAR REGION, PRATEEK PARAMEDIASINAL LN(3), 10R/L AND 7 NON DIAGNOSTIC, , MRI BRAIN PENDING, PORT PLACEMENT PENDING, PRIOR RUL SEGMENTECOMY 11/06/2021 WITH CLOSE ANDREW 1.7MM/+ CLSI STAGE: NOW RECURRENT- [id number] ICD-10: C34.11, C77.1 Radiotherapy to date: Summary > No prior radiation therapy. 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 This is a pleasant 74-year-old female with recurrent adenocarcinoma of the lung. Patient had PD-ADENOCARCINOMA originally stage T1b N0 M0 RUL treated with posterior segmentectomy on 11/06/2021. Closest margin at that time was 1.7 mm. She was unable to undergo lobectomy due to poor pulmonary function. At that time the tumor measured 1.[address]s were negative until 07/27/2024 which showed an increased soft tissue thickening along the right supra hilar upper lobe bronchus. It had increased since prior examinations and it measured 1.9 x 1.7 cm. PET/CT on 08/06/2024 showed avid uptake in the right supra hilar area there was also increased paramediastinal PRATEEK nodule measuring 1.5 cm. It was previously not avid. BRONCHOSCOPY on 09/09/2024 showed a right upper lobe biopsy positive for adenocarcinoma of primary pulmonary origin. Stations 10R 10L and 7 were nondiagnostic. Patient is asymptomatic from her disease. She is scheduled for consult for port placement on September 23. We will schedule CT SIM after port placement. Patient has a significant positive family history of father dying at age 59 of colorectal rectal metastasis, mother dying of female organ disease at age 61 sister dying of appendiceal carcinoma at age 67, brother presently living with rectal carcinoma diagnosed at age 60 and multiple paternal aunts and uncles that had ON LINE CSR and colon carcinoma. Clinical Summary: The patient tolerated RT well. 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 She remained active playing limited golf. Wt remained stable. Plan: End of treatment today. Continue on the above medication until the skin reaction resolves. Follow up in one month or sooner ifneed be. Signed by: Benny Hampton>11/17/2024 2:05:17 PM <<Signature on File>>
== END 2024-11-18 23:59 | disposition home or self-care (01) ==
PROVIDERS: Internal Medicine; PCP Family Medicine; Visit Provider Radiology Radiation Oncology
DX: Z53.9 Procedure and treatment not carried out, unspecified reason; Z51.0 Encounter for antineoplastic radiation therapy; C34.11 Malignant neoplasm of upper lobe, right bronchus or lung; C77.1 Secondary and unspecified malignant neoplasm of intrathoracic lymph nodes
CPT/HCPCS: 36591; 77336; 77386; 80053; 83615; 85025; 96360; 96361; 96368; 96375; 96413; 96417; 99024; 99213; 99214; J1100; J1200; J2469; J3490; J7030; J7040; J7050; J9045; J9267; J9999

== ENCOUNTER 2024-11-24 12:28 | Outpatient (CLI) | payer MEDICARE, OTHER, SELFPAY | END 2024-11-24 12:29 | disposition home or self-care (01) | LOC: RT 12:30 | PROVIDERS: PCP Family Medicine; Visit Provider Internal Medicine | DX: J43.9 Emphysema, unspecified (principal) | CPT/HCPCS: 94618 ==

== ENCOUNTER 2024-12-16 11:05 | Oncology outpatient (recurring) (ONCR) | payer MEDICARE, OTHER, SELFPAY ==
--- NOTE | 2024-12-13 12:30 | CT_ITS ---
WS: [id number] CT CHEST, ABDOMEN AND PELVIS WITH CONTRAST HISTORY: lung cancer TECHNIQUE: Contiguous 5 mm axial imaging performed through the chest, abdomen and pelvis with IV contrast, oral contrast has been provided. Coronal and sagittal reformats chest. Coronal and sagittal reformats through the abdomen and pelvis. All CT scans at [facility] use at least one of these dose optimization techniques: automated exposure control; mA and/or kV adjustment per patient size (includes targeted exams where dose is matched to clinical indication); or iterative reconstruction. CONTRAST: Omnipaque 350; 100 mL IV. DLP: 1026.58 mGy.cm COMPARISON: Chest CT 07/27/2024, CT abdomen and pelvis 07/21/2023, PET/CT 08/06/2024. Chest CT: RIGHT upper lobe segmentectomy. Mild volume loss in the RIGHT thorax. There is mild bronchial wall thickening at the RIGHT hilum measuring up to 0.7 cm. RIGHT hilar lymph node 1.5 x 1.1 cm. These findings were described on 07/27/2024 and also on the PET/CT of 08/06/2024. There has been a decrease in size of the soft tissue component. No new mass. No LEFT paratracheal or LEFT mediastinal adenopathy or increasing lymph node size. 7 mm lymph node in the AP window has not increased in size. New slightly spiculated nodule measuring 1.4 x 1.0 cm at the RIGHT lung base. Heart is normal size. Mildly ectatic thoracic aorta. Atherosclerotic plaque. Nonaneurysmal aorta. Normal size pulmonary artery. RIGHT IJ Mediport. RIGHT thyroid nodule 2.0 x [address]: Mild hepatic steatosis. Normal size liver and spleen. Gallbladder is contracted. No adrenal mass. Mild pancreatic atrophy. No pancreatic duct dilatation. No renal obstruction. Superior pole LEFT renal cyst 5.5 cm. Atherosclerotic calcifications within the aorta and common iliac arteries. Heavy calcification in the splenic artery. Normal appearance of the stomach. No small bowel obstruction. No colitis or obstruction. Normal appendix. No ascites or adenopathy. Pelvic CT: Atrophic uterus with a few calcifications. Urinary bladder is negative. No destructive bone lesions. CT/CT chest abdpel w/*[id number] IMPRESSION: 1. Patient is status post RIGHT upper lobe segmentectomy. 2. Previously described RIGHT hilar and suprahilar mass is reidentified measur ing 1.5 x 1.1 cm with slight decrease in size. There is mild adjacent bronchial wall thickening to 0.7 cm. 3. New spiculated nodule at the RIGHT lung base measures 1.4 x 1.0 cm. Recomme nd short-term CT follow-up, 3 months with IV contrast. Neoplasm versus atelecta sis or pneumonia. 4. Stable AP window lymph node. 5. No metastatic disease to the liver or adrenal glands. 6. Stable RIGHT thyroid nodule.
[2024-12-13] MEDS: iohexol 350 mg/mL 500 mL Btl (per mL) IV (12:59)
[2024-12-13] MEDS: iohexol 350 mg/mL 500 mL Btl (per mL) PO (12:59)
[2024-12-15 11:14] LABS: Hematocrit 39.0 % (36-47); Hemoglobin 12.70 g/dL (11.27-16.99); Mean Corpuscular HGB Conc 32.6 g/dL (30-55); Mean Corpuscular Hemoglobin 30.3 pg (27-33); Mean Corpuscular Volume 93.1 fl (85-98); Nucleated Red Blood Cells % 0 %; Platelet Count 299 10^3/cmm (157-399); Red Blood Count 4.19 10^6/uL (3.85-5.65); White Blood Count 7.72 10^3/uL (3.29-11.43)
[2024-12-15 11:37] LABS: Alanine Aminotransferase 16 U/L (0-33); Albumin Level 4.2 g/dL (3.5-5.2); Alkaline Phosphatase 66 U/L (35-105); Anion Gap 16.3 (5-19); Aspartate Amino Transferase 21 U/L (0-32); Blood Urea Nitrogen 18 mg/dL (8-23); Calcium 9.9 mg/dL (8.5-10.5); Carbon Dioxide 22 mmol/L (22-29); Chloride 103 mmol/L (98-107); Globulin 3.6 g/dL (1.3-4.6); Glucose 108 mg/dL (65-115); Osmolality Calculated 286 mOsm/kg (285-295); Potassium 4.3 mmol/L (3.5-5.1); Sodium 137 mmol/L (136-145); Thyroid Stimulating Hormone 1.27 uIU/mL (0.27-4.20); Total Protein 7.8 g/dL (6.6-8.7)
--- NOTE | 2024-12-16 11:46 | ONCRAD EPV_ITS ---
Radiation Oncology Established Patient Visit Patient: Elizabeth Hernandez [id number] : 1950> Age: 74> Sex: Female> Dictated by: Benny Hampton Date of Service: 12/16/2024 Referring Physician(s) : Diagnosis: C34.11 - Malignant neoplasm of upper lobe, right bronchus or lung, Diagnosed 09/09/2024 (Active) C77.1 - Secondary and unspecified malignant neoplasm of intrathoracic lymph nodes, Diagnosed 09/09/2024 (Active) Radiotherapy to Date: Course: Rt Lung 2024, Treatment Site: RT Lung, Ref. ID: [id number], Energy: 6X, Dose/Fx (cGy): 200, #Fx: , Dose Correction (cGy): 0, Total Dose Delivered (cGy): 6,000, Start Date: 10/06/2024, End Date: 11/17/2024, Elapsed Days: 42 Current History: This is a pleasant 74-year-old female who is 1 months since being treated for lung cancer. She states she is going to start immunotherapy today Patient's were temporarily DC'd by Dr. Musa but her blood pressure is increasing so she is going to talk with him regarding reinstituting those meds. Current Medications: albuterol sulfate 90 mcg/actuation (Ventolin HFA) 1 inh inhalation QID PRN qqtgvbojqli-lsdebyydt-iaaohyjs 200-62.5-25 mcg (Trelegy Ellipta) 1 inh inhalation Q24H 90 days hydrocodone-acetaminophen 5-325 mg 1 tab PO TID PRN 30 days lidocaine-prilocaine 2.5-2.5 % Apply quarter-size amount to port site 30 minutes prior to access; cover with cling wrap lisinopril 20 mg PO DAILY meloxicam 15 mg PO DAILY metoprolol succinate ER 75 mg (1.5 x 50 mg) PO DAILY 90 days ondansetron HCl 4 mg PO Q6H PRN prochlorperazine maleate (Compazine) 10 mg PO Q4H PRN simvastatin 20 mg PO DAILY Allergies: nitrofurantoin (From Macrobid) Allergy (Unknown, Verified 12/15/24 11:50) Unknown Penicillins Allergy (Unknown, Verified 12/15/24 11:50) Unknown Sulfa (Sulfonamide Antibiotics) Allergy (Unknown, Verified 12/15/24 11:50) Unknown vancomycin Allergy (Verified 12/15/24 11:50) ADR-Itching Current Complaints / Review of Systems: . Vital Signs: Performed on 12/16/2024 11:35 AM BMI - 29.214 kg/m2 (high), Height - 66 in, Weight - 181 lbs, Temperature - 97.6 f, Pulse - 85 /min, Respiration - 18 /min, O2 Sat - 94 % (low), Pain - 0, Fatigue - 0 and BP - 164/ 93 mm(hg)(high). Physical Exam: General: Alert and oriented x 3. No acute distress. HEENT: Normocephalic, atraumatic. Extraocular Movements Intact: Pupils Equal, Round, Reactive to Light and Accommodation: Sclerae anicteric. Oral cavity is clear without lesions, masses or ulcers. NECK: Supple without supraclavicular or jugular lymphadenopathy. LUNGS: Clear to auscultation bilaterally without rales, rhonchi or wheeze. HEART: Regular rate and rhythm, normal S1 and S2 without murmur, gallop or rub. MUSCULOSKELETAL: No tenderness or percussion pain over the axial skeleton, scapulae or pelvis. ABDOMEN: Soft, nontender, nondistended without masses or organomegaly. Bowell sounds are present. EXTREMITIES: No peripheral edema is identified. Limited motor and sensory examination are grossly intact and symmetric bilaterally. NEUROLOGIC: Cranial nerves II ???XII are grossly intact. Normal sensation, strength 5/5 in all extremities, normal gait, no ataxia. Performance Status: KPS 90 Lab: None pending. Pathology: Primary, c34.11 - malignant neoplasm of upper lobe, right bronchus or lung, Diagnosed 09/09/2024 (active) and Primary, c77.1 - secondary and unspecified malignant neoplasm of intrathoracic lymph nodes, Diagnosed 09/09/2024 (active) . Imaging: See HPI Impression: PD-ADENOCARCINOMA PLAN: Immunotherapy to start today. RTC in 3 months or sooner if need be. Continue golfing exercise as tolerated. Signed by: 12/16/2024 11:44:54 AM <<Signature on File>> Time spent with patient: 20 minutes CPT Code: CPT Code:
[2024-12-16] MEDS: durvalumab 1,500 MG in sodium chloride 0.9% 250 ML 280 MG IV (13:10)
[2024-12-16 14:39] VITALS: BP 145/82; PULSE 76; RESP 16; TEMP 36.6; O2SAT 76
== END 2024-12-19 23:59 | disposition home or self-care (01) ==
PROVIDERS: Internal Medicine; PCP Family Medicine; Visit Provider Nurse Practitioner
DX: Z51.12 Encounter for antineoplastic immunotherapy (principal); C34.11 Malignant neoplasm of upper lobe, right bronchus or lung; C77.1 Secondary and unspecified malignant neoplasm of intrathoracic lymph nodes; Z79.899 Other long term (current) drug therapy
CPT/HCPCS: 36591; 71260; 74177; 80053; 84443; 85025; 96360; 96413; 96523; 99024; 99213; A4222; J7030; J7050; J9173

== ENCOUNTER → 2025-01-11 10:40 | Outpatient (BNVA) | payer MEDICARE, OTHER, SELFPAY | PROVIDERS: PCP Family Medicine; Visit Provider Internal Medicine | DX: J44.9 Chronic obstructive pulmonary disease, unspecified (principal); C34.11 Malignant neoplasm of upper lobe, right bronchus or lung; G47.33 Obstructive sleep apnea (adult) (pediatric); Z99.89 Dependence on other enabling machines and devices; Z87.891 Personal history of nicotine dependence | CPT/HCPCS: 36415; 80053; 82103; 83615; 85025; 99214 ==

== ENCOUNTER 2025-01-13 07:42 | Oncology outpatient (recurring) (ONCR) | payer MEDICARE, OTHER, SELFPAY ==
[2025-01-13 08:01] LABS: Hematocrit 36.4 % (36-47); Hemoglobin 11.90 g/dL (11.27-16.99); Mean Corpuscular HGB Conc 32.7 g/dL (30-55); Mean Corpuscular Hemoglobin 30.2 pg (27-33); Mean Corpuscular Volume 92.4 fl (85-98); Nucleated Red Blood Cells % 0 %; Platelet Count 215 10^3/cmm (157-399); Red Blood Count 3.94 10^6/uL (3.85-5.65); White Blood Count 5.26 10^3/uL (3.29-11.43)
[2025-01-13 08:23] LABS: Alanine Aminotransferase 11 U/L (0-33); Albumin Level 4.0 g/dL (3.5-5.2); Alkaline Phosphatase 71 U/L (35-105); Anion Gap 15.7 (5-19); Aspartate Amino Transferase 17 U/L (0-32); Blood Urea Nitrogen 18 mg/dL (8-23); Calcium 9.3 mg/dL (8.5-10.5); Carbon Dioxide 24 mmol/L (22-29); Chloride 106 mmol/L (98-107); Creatinine Clr Calc Pharmacy 55.2629; Globulin 3.4 g/dL (1.3-4.6); Glucose 107 mg/dL (65-115); Osmolality Calculated 294 mOsm/kg (285-295); Potassium 4.7 mmol/L (3.5-5.1); Sodium 141 mmol/L (136-145); Total Protein 7.4 g/dL (6.6-8.7)
[2025-01-13] MEDS: durvalumab 1,500 MG in sodium chloride 0.9% 250 ML 280 MG IV (09:10)
[2025-01-13 10:29] VITALS: BP 167/80; PULSE 64; RESP 17; TEMP 36.3; O2SAT 95
== END 2025-01-13 23:59 | disposition home or self-care (01) ==
PROVIDERS: Internal Medicine; PCP Family Medicine; Visit Provider Nurse Practitioner
DX: Z51.12 Encounter for antineoplastic immunotherapy (principal); C34.11 Malignant neoplasm of upper lobe, right bronchus or lung; C77.1 Secondary and unspecified malignant neoplasm of intrathoracic lymph nodes; R03.0 Elevated blood-pressure reading, without diagnosis of hypertension; Z87.891 Personal history of nicotine dependence; Z95.828 Presence of other vascular implants and grafts; Z92.3 Personal history of irradiation; Z79.899 Other long term (current) drug therapy
CPT/HCPCS: 80053; 85025; 96413; 99214; A4222; J7050; J9173

== ENCOUNTER → 2025-02-10 08:52 | Outpatient (BNVA) | payer MEDICARE, OTHER, SELFPAY | PROVIDERS: PCP Family Medicine; Visit Provider Internal Medicine | DX: G47.33 Obstructive sleep apnea (adult) (pediatric) (principal); Z99.89 Dependence on other enabling machines and devices; J43.2 Centrilobular emphysema; C34.11 Malignant neoplasm of upper lobe, right bronchus or lung; Z87.891 Personal history of nicotine dependence | CPT/HCPCS: 99214; Q3014 ==

== ENCOUNTER 2025-02-10 11:30 | Oncology outpatient (recurring) (ONCR) | payer MEDICARE, OTHER, SELFPAY ==
[2025-02-09 13:00] VITALS: PULSE 80; RESP 18; O2SAT 97
[2025-02-10 11:26] LABS: Hematocrit 38.5 % (36-47); Hemoglobin 12.40 g/dL (11.27-16.99); Mean Corpuscular HGB Conc 32.2 g/dL (30-55); Mean Corpuscular Hemoglobin 29.6 pg (27-33); Mean Corpuscular Volume 91.9 fl (85-98); Nucleated Red Blood Cells % 0 %; Platelet Count 282 10^3/cmm (157-399); Red Blood Count 4.19 10^6/uL (3.85-5.65); White Blood Count 6.55 10^3/uL (3.29-11.43)
[2025-02-10 11:59] LABS: Alanine Aminotransferase 10 U/L (0-33); Albumin Level 4.2 g/dL (3.5-5.2); Alkaline Phosphatase 58 U/L (35-105); Anion Gap 18.5 (5-19); Aspartate Amino Transferase 17 U/L (0-32); Blood Urea Nitrogen 20 mg/dL (8-23); Calcium 9.4 mg/dL (8.5-10.5); Carbon Dioxide 23 mmol/L (22-29); Chloride 102 mmol/L (98-107); Creatinine Clr Calc Pharmacy 55.0718; Globulin 3.1 g/dL (1.3-4.6); Glucose 153 mg/dL (65-115); Osmolality Calculated 294 mOsm/kg (285-295); Potassium 4.5 mmol/L (3.5-5.1); Sodium 139 mmol/L (136-145); Thyroid Stimulating Hormone 0.99 uIU/mL (0.27-4.20); Total Protein 7.3 g/dL (6.6-8.7)
[2025-02-10] MEDS: durvalumab 1,500 MG in sodium chloride 0.9% 250 ML 280 MG IV (13:47)
[2025-02-10 14:50] VITALS: BP 147/78; PULSE 76; RESP 17; TEMP 36.6; O2SAT 96
== END 2025-02-10 23:59 | disposition home or self-care (01) ==
PROVIDERS: Internal Medicine; Nurse Practitioner Family; PCP Family Medicine; Visit Provider Nurse Practitioner
DX: Z51.12 Encounter for antineoplastic immunotherapy; C34.11 Malignant neoplasm of upper lobe, right bronchus or lung; Z79.899 Other long term (current) drug therapy; Z53.9 Procedure and treatment not carried out, unspecified reason
CPT/HCPCS: 80053; 83615; 84443; 85025; 94060; 94726; 94729; 96413; A4222; J7050; J7613; J9173

== ENCOUNTER 2025-03-10 11:30 | Oncology outpatient (recurring) (ONCR) | payer MEDICARE, OTHER, SELFPAY ==
[2025-03-07] MEDS: iohexol 350 mg/mL 500 mL Btl (per mL) PO (09:49)
[2025-03-07] MEDS: iohexol 350 mg/mL 500 mL Btl (per mL) IV (10:11)
--- NOTE | 2025-03-07 10:15 | CT_ITS ---
WS: [id number] CT CHEST, ABDOMEN AND PELVIS WITH CONTRAST HISTORY: lung cancer TECHNIQUE: Contiguous 5 mm axial imaging performed through the chest, abdomen and pelvis with IV contrast, oral contrast has been provided. Coronal and sagittal reformats chest. Coronal and sagittal reformats through the abdomen and pelvis. All CT scans at [facility] use at least one of these dose optimization techniques: automated exposure control; mA and/or kV adjustment per patient size (includes targeted exams where dose is matched to clinical indication); or iterative reconstruction. CONTRAST: Omnipaque 350; 100 mL IV. DLP: 1145.17 mGy.cm COMPARISON: 12/13/2024, 07/27/[address]: Status post RIGHT upper lobe segmentectomy. Mild volume loss in the RIGHT thorax. New consolidation centered at the RIGHT hilum extending into the superior segment RIGHT lower lobe. There is mild volume loss. This is at the site of prior surgery. Mild bronchial wall thickening in the central RIGHT hilum. Previously described new consolidation at the RIGHT lung base has resolved. Continued decrease in size of the RIGHT suprahilar lymph node. No new lymph nodes are identified. LEFT thyroid nodule 1.3 cm is stable. Mild atherosclerosis aorta. Normal size pulmonary artery. Heart size is normal. No pericardial or pleural effusions. Right-sided Mediport. Abdomen CT: Mild hepatic steatosis. Normal size liver. Normal portal vein. Normal gallbladder. Normal pancreas. No pancreatic duct or common bile duct dilatation. Normal spleen. No adrenal mass. No renal obstruction. No change in the large LEFT renal cyst. Mild atherosclerotic changes within the abdominal aorta. 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 Normally distended stomach. Diffuse constipation. No small bowel obstruction. No ascites or adenopathy. Pelvic CT: Well-distended urinary bladder. Atrophic uterus. No free fluid. No adenopathy. Distal LEFT ureter is very slightly prominent but there is no intraluminal filling defect. No renal obstruction. The remaining ureter is normal. Increase in the lumbar lordosis. Advanced degenerative disc disease and spondylitic changes in the lumbar and thoracic spines. No lytic or sclerotic changes are identified. CT/CT chest abdpel w/*[id number] IMPRESSION: 1. New volume loss and consolidation centered at the RIGHT hilum since 12/14/19. Correlate with history of radiation therapy to this area. Favor these pickens es may all be post radiation pneumonitis. 2. Previously described new nodule at the RIGHT lung base on 12/13/2024 has res olved. 3. Decrease in size of the RIGHT suprahilar lymph node. No pathologically enla rged lymph nodes. 4. Atherosclerosis thoracic and abdominal aorta is with mild stenosis at the c eliac axis and SMA. 5. No metastatic disease to the liver or adrenal glands.
[2025-03-10 11:56] LABS: Hematocrit 41.2 % (36-47); Hemoglobin 13.30 g/dL (11.27-16.99); Mean Corpuscular HGB Conc 32.3 g/dL (30-55); Mean Corpuscular Hemoglobin 28.9 pg (27-33); Mean Corpuscular Volume 89.6 fl (85-98); Nucleated Red Blood Cells % 0 %; Platelet Count 231 10^3/cmm (157-399); Red Blood Count 4.60 10^6/uL (3.85-5.65); White Blood Count 5.48 10^3/uL (3.29-11.43)
[2025-03-10 12:26] LABS: Alanine Aminotransferase 13 U/L (0-33); Albumin Level 4.0 g/dL (3.5-5.2); Alkaline Phosphatase 58 U/L (35-105); Anion Gap 16.2 (5-19); Aspartate Amino Transferase 16 U/L (0-32); Blood Urea Nitrogen 21 mg/dL (8-23); Calcium 9.5 mg/dL (8.5-10.5); Carbon Dioxide 22 mmol/L (22-29); Chloride 104 mmol/L (98-107); Globulin 3.5 g/dL (1.3-4.6); Glucose 95 mg/dL (65-115); Osmolality Calculated 289 mOsm/kg (285-295); Potassium 4.2 mmol/L (3.5-5.1); Sodium 138 mmol/L (136-145); Thyroid Stimulating Hormone 1.21 uIU/mL (0.27-4.20); Total Protein 7.5 g/dL (6.6-8.7)
[2025-03-10] MEDS: durvalumab 1,500 MG in sodium chloride 0.9% 250 ML 280 MG IV (13:53)
[2025-03-10 15:09] VITALS: BP 121/68; PULSE 64; RESP 16; TEMP 36; O2SAT 97
== END 2025-03-10 23:59 | disposition home or self-care (01) ==
PROVIDERS: PCP Family Medicine; Visit Provider Nurse Practitioner
DX: Z51.12 Encounter for antineoplastic immunotherapy; C34.11 Malignant neoplasm of upper lobe, right bronchus or lung; Z79.899 Other long term (current) drug therapy; G47.33 Obstructive sleep apnea (adult) (pediatric); Z53.9 Procedure and treatment not carried out, unspecified reason
CPT/HCPCS: 71260; 74177; 80053; 84443; 85025; 96413; 99214; A4222; J7050; J9173

== ENCOUNTER 2025-03-16 09:40 | Oncology outpatient (recurring) (ONCR) | payer MEDICARE, OTHER, SELFPAY ==
--- NOTE | 2025-03-16 10:44 | ONCRAD EPV_ITS ---
[facility] Radiation Oncology Established Patient Visit Patient: David Johnson [id number] : 1950> Age: 74> Sex: Female> Dictated by: Benny Hampton Date of Service: 03/16/2025 Referring Physician(s) : Dr. Musa Diagnosis: C34.11 - Malignant neoplasm of upper lobe, right bronchus or lung, Diagnosed 09/09/2024 (Active) C77.1 - Secondary and unspecified malignant neoplasm of intrathoracic lymph nodes, Diagnosed 09/09/2024 (Active) Radiotherapy to Date: Course: Rt Lung 2024, Treatment Site: RT Lung, Ref. ID: [id number], Energy: 6X, Dose/Fx (cGy): 200, #Fx: / , Dose Correction (cGy): 0, Total Dose Delivered (cGy): 6,000, Start Date: 10/06/2024, End Date: 11/17/2024, Elapsed Days: 42 Current History: This is a pleasant 74-year-old female who who continues on immunotherapy. She is 4 months from definitive chemoradiation to the RU. CT of the chest on 03/07/2025 notices decrease in size of the right suprahilar lymph node. No new lymph nodes were identified. A previous nodule in the right lung base has resolved. Current Medications: albuterol sulfate 90 mcg/actuation (Ventolin HFA) 1 inh inhalation QID PRN amlodipine 5 mg PO DAILY CPAP (Standard Cpap) As directed sqfzyhniqjn-ocsfopxxg-nqqdkwkr 200-62.5-25 mcg (Trelegy Ellipta) 1 inh inhalation Q24H 90 days lidocaine-prilocaine 2.5-2.5 % Apply quarter-size amount to port site 30 minutes prior to access; cover with cling wrap meloxicam 15 mg PO DAILY metoprolol succinate ER 75 mg (1.5 x 50 mg) PO DAILY 90 days [nebulizer As directed] Allergies: nitrofurantoin (From Macrobid) Allergy (Unknown) Penicillins Allergy (Unknown) Sulfa (Sulfonamide Antibiotics) Allergy (Unknown,) vancomycin AllergyADR-Itching Current Complaints / Review of Systems: As above Vital Signs: Performed on 03/16/2025 9:52 AM BMI - 29.021 kg/m2 (high), Height - 66 in, Weight - 179.8 lbs, Temperature - 97.5 f, Pulse - 62 /min, Respiration - 18 /min, O2 Sat - 97 %, Pain - 0, Fatigue - 0 and BP - 147/ 78 mm(hg)(high/). Physical Exam: General: Alert and oriented x 3. No acute distress. HEENT: Normocephalic, atraumatic. Extraocular Movements Intact: Pupils Equal, Round, Reactive to Light and Accommodation: Sclerae anicteric. Oral cavity is clear without lesions, masses or ulcers. NECK: Supple without supraclavicular or jugular lymphadenopathy. LUNGS: Clear to auscultation bilaterally without rales, rhonchi or wheeze. No intercostal retraction. HEART: Regular rate and rhythm, normal S1 and S2 without murmur, gallop or rub. MUSCULOSKELETAL: No tenderness or percussion pain over the axial skeleton, scapulae or pelvis. ABDOMEN: Soft, nontender, nondistended without masses or organomegaly. Bowell sounds are present. EXTREMITIES: No peripheral edema is identified. Limited motor and sensory examination are grossly intact and symmetric bilaterally. NEUROLOGIC: Cranial nerves II ???XII are grossly intact. Normal sensation, strength 5/5 in all extremities, normal gait, no ataxia. Performance Status: KPS 90 Lab: None pending. Pathology: Primary, c34.11 - malignant neoplasm of upper lobe, right bronchus or lung, Diagnosed 09/09/2024 (active) and Primary, c77.1 - secondary and unspecified malignant neoplasm of intrathoracic lymph nodes, Diagnosed 09/09/2024 (active) . Imaging: See HPI Impression: RUL resolving mass Patient continues on immunotherapy with good response PLAN: Continue immunotherapy RTC to radiation oncology in 6 months or sooner if need be. Continue follow-up with Dr. Musa Signed by: 03/16/2025 10:43:03 AM <<Signature on File>> Time spent with patient/review of records/preparation documents: 30 minutes CPT Code: CPT Code:
== END 2025-03-20 23:59 | disposition home or self-care (01) ==
PROVIDERS: PCP Family Medicine; Visit Provider Radiology Radiation Oncology
DX: C34.11 Malignant neoplasm of upper lobe, right bronchus or lung (principal); Z79.899 Other long term (current) drug therapy; R93.89 Abnormal findings on diagnostic imaging of other specified body structures; R59.0 Localized enlarged lymph nodes; I70.0 Atherosclerosis of aorta; I77.1 Stricture of artery; K55.1 Chronic vascular disorders of intestine; Z98.890 Other specified postprocedural states; E04.1 Nontoxic single thyroid nodule; Z96.89 Presence of other specified functional implants; K76.0 Fatty (change of) liver, not elsewhere classified; N28.1 Cyst of kidney, acquired; K59.00 Constipation, unspecified; N85.8 Other specified noninflammatory disorders of uterus; M47.896 Other spondylosis, lumbar region; M51.369 Other intervertebral disc degeneration, lumbar region without mention of lumbar back pain or lower extremity pain; M47.894 Other spondylosis, thoracic region; M51.34 Other intervertebral disc degeneration, thoracic region
CPT/HCPCS: 99214

== ENCOUNTER 2025-04-07 09:26 | Oncology outpatient (recurring) (ONCR) | payer MEDICARE, OTHER, SELFPAY ==
[2025-04-07 09:47] LABS: Hematocrit 39.6 % (36-47); Hemoglobin 13.00 g/dL (11.27-16.99); Mean Corpuscular HGB Conc 32.8 g/dL (30-55); Mean Corpuscular Hemoglobin 28.4 pg (27-33); Mean Corpuscular Volume 86.5 fl (85-98); Nucleated Red Blood Cells % 0 %; Platelet Count 226 10^3/cmm (157-399); Red Blood Count 4.58 10^6/uL (3.85-5.65); White Blood Count 6.06 10^3/uL (3.29-11.43)
[2025-04-07 10:20] LABS: Alanine Aminotransferase 15 U/L (0-33); Albumin Level 4.3 g/dL (3.5-5.2); Alkaline Phosphatase 60 U/L (35-105); Anion Gap 16.4 (5-19); Aspartate Amino Transferase 19 U/L (0-32); Blood Urea Nitrogen 19 mg/dL (8-23); Calcium 9.7 mg/dL (8.5-10.5); Carbon Dioxide 24 mmol/L (22-29); Chloride 102 mmol/L (98-107); Globulin 2.9 g/dL (1.3-4.6); Glucose 99 mg/dL (65-115); Osmolality Calculated 288 mOsm/kg (285-295); Potassium 4.4 mmol/L (3.5-5.1); Sodium 138 mmol/L (136-145); Thyroid Stimulating Hormone 0.80 uIU/mL (0.27-4.20); Total Protein 7.2 g/dL (6.6-8.7)
[2025-04-07] MEDS: durvalumab 1,500 MG in sodium chloride 0.9% 250 ML 280 MG IV (11:44)
[2025-04-07 12:51] VITALS: BP 131/83; PULSE 55; RESP 16; TEMP 36.1; O2SAT 96
== END 2025-04-07 23:59 | disposition home or self-care (01) ==
PROVIDERS: Nurse Practitioner; PCP Family Medicine; Visit Provider Radiology Radiation Oncology
DX: Z51.12 Encounter for antineoplastic immunotherapy (principal); C34.11 Malignant neoplasm of upper lobe, right bronchus or lung; G47.33 Obstructive sleep apnea (adult) (pediatric); Z87.891 Personal history of nicotine dependence; Z92.3 Personal history of irradiation; Z92.21 Personal history of antineoplastic chemotherapy; Z79.899 Other long term (current) drug therapy; R94.6 Abnormal results of thyroid function studies
CPT/HCPCS: 80053; 84443; 85025; 96413; 99213; A4222; J7050; J9173